=== PATIENT | female | born 1985 ===

== ENCOUNTER 2020-03-15 09:56 | Outpatient (REF) | payer MEDICAID, SELFPAY ==
--- NOTE | 2020-03-15 | US_ITS ---
EXAMINATION: US PELVIS, COMPLETE US TRANSVAGINAL CLINICAL INFORMATION: Pelvic pain. COMPARISON: CT 03/18/2019 TECHNIQUE: Transabdominal and transvaginal imaging was performed. FINDINGS: LMP: One week ago. Uterus is anteverted, measuring 10.8 x 4.4 x 6.1 cm. No focal uterine lesion. There is trace fluid in the endometrial canal in the region of the cervix. Endometrial thickness 0.6 cm. Right ovary measures 3.3 x 1.6 x 1.8 cm. Volume 5 mL. Left ovary measures 2.9 x 2.4 x 1.9 cm. Volume 6.9 mL. Bilateral ovaries appear unremarkable. No free fluid in the cul-de-sac. US/US transvaginal IMPRESSION: Unremarkable pelvic ultrasound.
--- NOTE | 2020-03-15 | US_ITS ---
EXAMINATION: US ABDOMEN COMPLETE CLINICAL INFORMATION: Abdominal pain. COMPARISON: CT 03/18/2019 TECHNIQUE: Real-time imaging of the abdominal viscera. FINDINGS: PANCREAS: The visualized head and body of the pancreas appears unremarkable. Remainder of the pancreas is obscured by bowel gas. ABDOMINAL AORTA: The proximal, mid, and distal segments are normal in caliber. INFERIOR VENA CAVA: Visualized portions are normal. LIVER: Diffuse increased echogenicity. No focal hepatic lesion. There is no intrahepatic biliary duct dilatation seen. GALLBLADDER: Normal. The gallbladder is physiologically distended without evidence of stones, sludge, polyps, wall thickening or pericholecystic fluid. COMMON BILE DUCT: Normal in caliber measuring 0.4 cm in diameter. RIGHT KIDNEY: 2.1 cm midpole cyst. No hydronephrosis. No renal calculi . The kidney measures 12.7 cm in maximum dimension. LEFT KIDNEY: Normal. No hydronephrosis. No renal calculi or focal parenchymal lesions. The kidney measures 12 cm in maximum dimension. SPLEEN: Normal. The spleen measures 11.2 cm in maximum dimension. FREE FLUID: None. Limited evaluation secondary to body habitus. US/US abdomen complete IMPRESSION: 1. There is generalized increase in hepatic echotexture, consistent with fatty infiltration or hepatocellular disease. Please correlate clinically. No focal hepatic mass or intrahepatic biliary duct dilatation is seen. 2. Right renal 2.1 cm cyst.
--- NOTE | 2020-03-15 | US_ITS ---
EXAMINATION: US PELVIS, COMPLETE US TRANSVAGINAL CLINICAL INFORMATION: Pelvic pain. COMPARISON: CT 03/18/2019 TECHNIQUE: Transabdominal and transvaginal imaging was performed. FINDINGS: LMP: One week ago. Uterus is anteverted, measuring 10.8 x 4.4 x 6.1 cm. No focal uterine lesion. There is trace fluid in the endometrial canal in the region of the cervix. Endometrial thickness 0.6 cm. Right ovary measures 3.3 x 1.6 x 1.8 cm. Volume 5 mL. Left ovary measures 2.9 x 2.4 x 1.9 cm. Volume 6.9 mL. Bilateral ovaries appear unremarkable. No free fluid in the cul-de-sac. US/US pelvic complete IMPRESSION: Unremarkable pelvic ultrasound.
== END 2020-03-15 09:57 | disposition home or self-care (01) ==
LOC: HO.US 09:56
PROVIDERS: Visit Provider Registered Nurse
DX: R10.2 Pelvic and perineal pain (principal); Z76.89 Persons encountering health services in other specified circumstances
CPT/HCPCS: 76700; 76830; 76856

== ENCOUNTER → 2020-04-28 11:03 | Outpatient (BNVA) | payer MEDICAID, SELFPAY | PROVIDERS: PCP Emergency Medicine; Visit Provider Nurse Practitioner | DX: Z76.89 Persons encountering health services in other specified circumstances (principal) ==

== ENCOUNTER → 2020-06-28 09:12 | Outpatient (BNVA) | payer MEDICAID, SELFPAY | PROVIDERS: Visit Provider Nurse Practitioner ==

== ENCOUNTER 2020-06-29 09:10 | Outpatient (REF) | payer MEDICAID, SELFPAY ==
[2020-06-29 09:52] LABS: MANUAL DIFF FLAG NO
[2020-06-29 09:56] LABS: Basophils Percent Auto 0.4 % (0-2); Eosinophils Absolute Auto 0.2 X10*3/uL (0.0-0.4); Eosinophils Percent Auto 2.2 % (0-4); Hematocrit 41.9 % (37-47); Hemoglobin 13.2 g/dl (12.0-16.0); Imm Gran Abs Auto 0.03 X10*3/uL (0.00-0.03); Imm Gran Pct Auto 0.3 % (0.0-0.4); Lymphocytes Absolute Auto 3.3 X10*3/uL (1.2-4.9); Lymphocytes Percent Auto 31.7 % (20-40); Mean Corpuscular HGB Conc 31.5 g/dl (31.0-35.0); Mean Corpuscular Hemoglobin 24.3 pg (27.0-33.0); Mean Platelet Volume 8.9 fL (9.4-12.3); Monocytes Absolute Auto 0.7 X10*3/uL (0.1-1.2); Monocytes Percent Auto 6.9 % (2-11); Neutrophils Absolute Auto 6.2 X10*3/uL (2.0-8.3); Neutrophils Percent Auto 58.5 % (45-73); Platelet Count 318 X10*3/uL (160-400); Red Blood Count 5.44 X10*6/uL (4.20-5.50); Red Cell Distribution Width 14.7 % (11.0-16.0); White Blood Count 10.5 X10*3/uL (4.8-10.8)
[2020-06-29 10:17] LABS: Alanine Aminotransferase 30 U/L (0-31); Albumin Level 4.1 g/dL (3.5-5.0); Alkaline Phosphatase 114 U/L (39-117); Anion Gap 14 (12-20); Aspartate Amino Transferase 21 U/L (5-31); Bilirubin Total 0.3 mg/dL (0.0-1.0); Blood Urea Nitrogen 15 mg/dL (9-16); Calcium 8.9 mg/dL (8.4-10.2); Carbon Dioxide 25 mmol/L (22-29); Chloride 106 mmol/L (96-108); Estimated Glomerular Filt Rate > 60; Glucose Random 121 mg/dL (60-115); Potassium 3.9 mmol/L (3.3-5.1); Sodium 141 mmol/L (135-145); Total Protein 7.7 g/dL (6.5-8.0)
== END 2020-06-29 09:11 | disposition home or self-care (01) ==
LOC: HO.LAB 09:10
PROVIDERS: Visit Provider Nurse Practitioner
DX: R19.7 Diarrhea, unspecified (principal); R10.9 Unspecified abdominal pain
CPT/HCPCS: 36415; 80053; 85025; 86140

== ENCOUNTER → 2020-08-13 11:52 | Outpatient (BNVA) | payer MEDICAID, SELFPAY | PROVIDERS: Visit Provider Nurse Practitioner ==

== ENCOUNTER → 2020-10-21 08:49 | Outpatient (BNVA) | payer MEDICAID, SELFPAY | PROVIDERS: Visit Provider Nurse Practitioner ==

== ENCOUNTER → 2020-11-26 10:24 | Outpatient (BNVA) | payer MEDICAID, SELFPAY | PROVIDERS: Visit Provider Nurse Practitioner ==

== ENCOUNTER → 2021-01-07 15:12 | Outpatient (BNVA) | payer MEDICAID, SELFPAY | PROVIDERS: Visit Provider Nurse Practitioner ==

== ENCOUNTER → 2021-01-24 15:20 | Outpatient (BNVA) | payer MEDICAID, SELFPAY | PROVIDERS: PCP Emergency Medicine; Visit Provider Nurse Practitioner ==

== ENCOUNTER → 2021-02-15 09:20 | Outpatient (BNVA) | payer MEDICAID, SELFPAY | PROVIDERS: PCP Emergency Medicine; Visit Provider Nurse Practitioner ==

== ENCOUNTER → 2021-03-01 14:04 | Outpatient (BNVA) | payer MEDICAID, SELFPAY | PROVIDERS: PCP Emergency Medicine; Referring Provider Emergency Medicine; Visit Provider Nurse Practitioner ==

== ENCOUNTER 2021-05-18 10:12 | Outpatient (REF) | payer MEDICAID, SELFPAY ==
--- NOTE | ~2021-05-18 | XR_ITS ---
EXAMINATION: X-RAY OF THE LEFT ANKLE AND LEFT TIBIA FIBULA CLINICAL INFORMATION: Benign neoplasm of connective and other soft tissue. COMPARISON: MRI of the left ankle December 2020. TECHNIQUE: 3 views of the left ankle. 2 views of the left tibia-fibula. FINDINGS: There is a focal area of mixed sclerosis and slight lucency eccentrically located within the diametaphysis of the distal tibia along its posterior lateral aspect. This abuts the endosteal cortex. There is slight expansion of the bone. The borders of the lesion are not clearly defined. There is no periosteal reaction. There is no apparent soft tissue mass. There is no fracture or extension through the cortex. This area measures 4.5 cm craniocaudal, 1.9 cm transverse and 1.8 cm AP. This focus is partially included in the [id number] of the prior ankle MRI. The remaining bones, joints and soft tissues in the left ankle and tibia-fibula are normal. XR/XR ankle LT min 3V IMPRESSION: Intraosseous lesion in the distal tibia in the diametaphysis correlates with the focus detected on the prior MRI. This lesion does not appear to be aggressive given its appearance and apparent remodeling of the bone given its mild expansion. This is most likely benign. This could reflect a fibroxanthoma. This could also reflect fibrous dysplasia. Malignancy is thought to be unlikely. Correlate with clinical presentation to determine whether or not any intervention is necessary at this time. This could be further characterize with CT or MRI if felt clinically necessary. Alternatively, routine follow-up, perhaps in 6-12 months, is recommended to ensure stability of this suspected benign lesion if this is not been detected previously.
--- NOTE | ~2021-05-18 | XR_ITS ---
EXAMINATION: X-RAY OF THE LEFT ANKLE AND LEFT TIBIA FIBULA CLINICAL INFORMATION: Benign neoplasm of connective and other soft tissue. COMPARISON: MRI of the left ankle December 2020. TECHNIQUE: 3 views of the left ankle. 2 views of the left tibia-fibula. FINDINGS: There is a focal area of mixed sclerosis and slight lucency eccentrically located within the diametaphysis of the distal tibia along its posterior lateral aspect. This abuts the endosteal cortex. There is slight expansion of the bone. The borders of the lesion are not clearly defined. There is no periosteal reaction. There is no apparent soft tissue mass. There is no fracture or extension through the cortex. This area measures 4.5 cm craniocaudal, 1.9 cm transverse and 1.8 cm AP. This focus is partially included in the [id number] of the prior ankle MRI. The remaining bones, joints and soft tissues in the left ankle and tibia-fibula are normal. XR/XR tibia fibula LT 2V IMPRESSION: Intraosseous lesion in the distal tibia in the diametaphysis correlates with the focus detected on the prior MRI. This lesion does not appear to be aggressive given its appearance and apparent remodeling of the bone given its mild expansion. This is most likely benign. This could reflect a fibroxanthoma. This could also reflect fibrous dysplasia. Malignancy is thought to be unlikely. Correlate with clinical presentation to determine whether or not any intervention is necessary at this time. This could be further characterize with CT or MRI if felt clinically necessary. Alternatively, routine follow-up, perhaps in 6-12 months, is recommended to ensure stability of this suspected benign lesion if this is not been detected previously.
== END 2021-05-18 10:13 | disposition home or self-care (01) ==
LOC: HO.XRAY 10:12
PROVIDERS: Absent Provider Nurse Practitioner Primary Care; PCP Nurse Practitioner Primary Care; Referring Provider Nurse Practitioner Primary Care; Visit Provider Surgery
DX: D21.9 Benign neoplasm of connective and other soft tissue, unspecified (principal); L02.91 Cutaneous abscess, unspecified
CPT/HCPCS: 73590; 73610; 99202

== ENCOUNTER → 2021-06-08 09:40 | Outpatient (BNVA) | payer MEDICAID, SELFPAY | PROVIDERS: PCP Nurse Practitioner Primary Care; Visit Provider Physician Assistant | DX: S93.402A Sprain of unspecified ligament of left ankle, initial encounter (principal) | CPT/HCPCS: 99202 ==

== ENCOUNTER 2021-06-24 11:00 | Outpatient (RCR) | payer MEDICAID, SELFPAY | END 2021-07-12 14:35 | disposition home or self-care (01) | LOC: HO.PT 11:00 | PROVIDERS: PCP Nurse Practitioner Primary Care; Visit Provider Nurse Practitioner Primary Care | DX: S93.492D Sprain of other ligament of left ankle, subsequent encounter (principal) | CPT/HCPCS: 97110; 97162; 97530 ==

== ENCOUNTER 2023-03-07 08:50 | Outpatient (AMB) | payer MEDICAID, SELFPAY ==
--- NOTE | 2023-03-07 08:55 | A.OFFVIS_ITS ---
Intake Vital Signs 03/07/23 09:12 Height 5 ft 4 in Weight 280 lb BMI 48.1 Intake Visit Reasons: NewProb- Right wrist pain Intake Note: Reema melo 38 year old female presents today for an evaluation of right wrist pain. Patient reports pain has been present for about a month. She describes her pain as a burning sensation that radiates into her 2nd and 3rd digits. States weakness with gripping, making it difficult to open jars. At times she has radiating pain to her forearm. Denies recent injury. Patient has been wearing a brace with little help. Allergies naproxen [NAPROXEN] Allergy (Unknown, Verified 03/07/23 09:12) TACHYCARDIA Medication List - Last Reconciled 03/07/23 by Sin Alvarez PA-C acyclovir 400 mg PO DAILY albuterol sulfate 90 mcg/actuation (ProAir HFA) 1 inh inhalation QID alosetron (Lotronex) 1 mg PO BID 30 days artifi.tears(hypromellose)(PF) 0.3% 1 drp ophthalmic (eye) Q2-4H PRN butenafine 1% (Lotrimin Ultra) 1 appl topical BID cetirizine (All Day Allergy (cetirizine)) 10 mg PO DAILY PRN cholecalciferol (vitamin D3) 1,250 mcg PO QWEEK cyclobenzaprine 5 mg PO TID PRN dicyclomine 20 mg PO QID 30 days famotidine 40 mg PO BEDTIME fluticasone propionate 50 mcg/actuation 1 spray intranasal DAILY lamotrigine (Lamictal) 25 mg PO DAILY levothyroxine 25 mcg PO QAM meloxicam 15 mg PO DAILY metformin 500 mg PO nystatin 1 appl topical BID omeprazole 20 mg PO DAILY 30 days prazosin 5 mg PO BEDTIME HPI NewProb- Right wrist pain HPI Details 38-year-old right hand dominant female bert carballo presents to the office today with an lever tender for evaluation of right wrist pain for about a month. She states she has pain and burning sensation in her wrist which radiates to her 2nd and 3rd digit and occasionally to her forearm. She also experiences pain and weakness with gripping or pushing motions and finds difficulty with opening jars. She denies any numbness or tingling and has not had any recent injury. She finds mild relief with a brace. [facility] Medical History (Updated 03/07/23 @ 10:41 by Sin Alvarez PA-C) Left ankle sprain Abscess Morbid obesity Family History Maternal Grandmother Diabetes Social History Household Members: Children Alcohol intake: never Current occupational status: unemployed Review of Systems Const All systems reviewed & are unremarkable except as noted in HPI and below Physical Exam Vital Signs: BMI result Body Mass Index 48.1 Extrem Other: Right wrist: Normal to inspection. She has no pain over distal radius or ulna. She does have tenderness over the scaffold lunate region. No pain with compression test of wrist. No DRUJ instability. NVI. Results Reviewed Results Reviewed: X-rays of the bilateral lungs obtained in the office today show Madelung deformity. Assessment & Plan Assessment & Plan (1) Bilateral Madelung's deformity: Code(s): Q74.0 - Other congenital malformations of upper limb(s), including shoulder girdle Plan X-ray findings of the left wrist are consistent with Madelung deformity. I did explain this to the patient along with treatment options which is mainly symptomatic with rest and anti-inflammatories, also avoiding any type of impact activities which cause discomfort. She does have a wrist brace which she can wear with impact activities. I did explain that as time goes on if she develops worsening pain or there is severe joint collapse, she can return to see us and I would have her see with Dr. Springer to discuss further treatment options. She is content with this plan. Orders: Orders XR wrist RT min 3V Today M25.531 - Pain in right wrist Patient Instructions: Scribed for Sin Alvarez PA-C, by Yousif Dailey medical genetics director, on 03/07/2023 at 9:00 AM EST. Chow, Sin Alvarez PA-C, have personally reviewed and agree with the information entered by the scribe. Coding Level of Care Code Est Pt Level 3 (51304) Diagnoses Bilateral Madelung's deformity Q74.0
[2023-03-07 09:12] VITALS: BMI 48.1
== END 2023-03-07 10:25 | disposition home or self-care (01) ==
PROVIDERS: PCP Nurse Practitioner Primary Care; Visit Provider Physician Assistant
DX: Q74.0 Other congenital malformations of upper limb(s), including shoulder girdle (principal)
CPT/HCPCS: 99213

== ENCOUNTER 2023-03-07 09:24 | Outpatient (REF) | payer MEDICAID, SELFPAY ==
--- NOTE | ~2023-03-07 | XR_ITS ---
EXAMINATION: XR WRIST, LEFT CLINICAL INFORMATION: Pain left wrist COMPARISON: Right wrist radiograph from 03/07/2023 TECHNIQUE: 2 views of the bilateral scaphoid 3 views of the left wrist FINDINGS: No acute visible fracture or dislocation. Joint spaces and alignment are maintained. Soft tissues are unremarkable. XR/XR wrist LT w scaphoid IMPRESSION: No acute visible fracture or dislocation.
--- NOTE | ~2023-03-07 | XR_ITS ---
EXAMINATION: XR WRIST, RIGHT CLINICAL INFORMATION: Pain COMPARISON: None available. TECHNIQUE: PA, lateral, and oblique views of the right wrist. FINDINGS: No acute visible fracture or dislocation. Very slight positive ulnar variance. Joint spaces and alignment are otherwise maintained. Soft tissues are unremarkable. XR/XR wrist RT min 3V IMPRESSION: 1. No acute visible fracture or dislocation. 2. Very slight positive ulnar variance.
== END 2023-03-07 09:25 | disposition home or self-care (01) ==
LOC: HO.HOSX 09:24
PROVIDERS: Visit Provider Physician Assistant
DX: M25.531 Pain in right wrist (principal); Q74.0 Other congenital malformations of upper limb(s), including shoulder girdle; Z79.899 Other long term (current) drug therapy
CPT/HCPCS: 73110; 99212

== ENCOUNTER 2023-03-28 09:40 | Outpatient (REF) | payer MEDICAID, SELFPAY ==
[2023-03-28 12:10] LABS: Cholesterol 145 mg/dL (<200); HDL Cholesterol 32 mg/dL (>40); LDL Cholesterol Calculated 71 mg/dL (<100); Triglycerides 214 mg/dL (<150)
[2023-03-28 12:18] LABS: Estimated Average Glucose 120 mg/dL; Hemoglobin A1c % 5.8 % (<6.0)
[2023-03-28 12:29] LABS: TSH reflex Free T4 3.83 uIU/mL (0.32-4.0)
== END 2023-03-28 09:41 | disposition home or self-care (01) ==
LOC: HO.HHCL 09:40
PROVIDERS: Visit Provider Nurse Practitioner Primary Care
DX: E78.1 Pure hyperglyceridemia (principal); R73.03 Prediabetes; E03.9 Hypothyroidism, unspecified
CPT/HCPCS: 36415; 80061; 83036; 84443

== ENCOUNTER 2023-09-04 16:41 | Outpatient (REF) | payer MEDICAID, SELFPAY ==
[2023-09-05 05:20] LABS: CT PCR NOT DETECTED (Not Detect.); NG PCR NOT DETECTED (Not Detect.)
[2023-09-05 10:57] LABS: Bacterial Vaginosis PCR NEGATIVE (Negative); Candida Group PCR DETECTED (Not Detect); Candida glab krusei PCR DETECTED (Not Detect); Trichomonas vaginalis PCR NOT DETECTED (Not Detect)
== END 2023-09-04 16:42 | disposition home or self-care (01) ==
LOC: HO.HHCLNP 16:41
PROVIDERS: Visit Provider Family Medicine
DX: N89.8 Other specified noninflammatory disorders of vagina (principal)
CPT/HCPCS: 0352U; 0353U; 87086

== ENCOUNTER 2023-09-05 12:30 | Outpatient (AMB) | payer MEDICAID, SELFPAY ==
--- NOTE | 2023-09-05 12:32 | MHC.OFFVIS ---
Vital Signs 09/05/23 12:41 Height 5 ft 4 in Weight 280 lb BMI 48.1 Intake Visit Reasons: worsening hand pain Intake Note: Reema 38 yr old finnish speaking female presents today for her follow up visit for Bilateral Madelung's deformity. Last seen with Ervin Soriano who wanted patient to have further evaluation with Dr. Springer. She describes her pain as a burning sensation that radiates into her 2nd and 3rd digits. States weakness with gripping, making it difficult to open jars. At times she has radiating pain to her forearm. Denies recent injury. Patient has been wearing a brace with little help. Allergies naproxen [NAPROXEN] Allergy (Unknown, Verified 09/05/23 12:41) TACHYCARDIA HPI HPI worsening hand pain: Details: Reema is a 38 year old right hand dominant Bhutanese speaking woman who presents to discuss her right hand pain. She saw BOLIVAR Soriano on 03/07/23 and was told she had Madelung deformity. She complains of right radial sided wrist pain primarily. Her pain is worse with pinching & gripping activities, and she says this limits her when working around her house. She complains of numbness in the thumb & index fingers bilaterally, R>L. Normal sensation to other digits. Symptoms intermittent, but daily, worse at night. She also complains of pain that radiates from the radial aspect of her right hand/wrist, up into her shoulder & neck. [facility] Medical History (Updated 09/05/23 @ 13:28 by Chris Salazar) Left ankle sprain Abscess Morbid obesity Family History Maternal Grandmother Diabetes Social History (Reviewed 03/07/23 @ 09:12 by Shania Evangelista [facility]) Household Members: Children Alcohol intake: never Current occupational status: unemployed Review of Systems Const All systems reviewed & are unremarkable except as noted in HPI and below Physical Exam Vital Signs: BMI result Body Mass Index 48.1 Const General: cooperative, healthy appearing and no acute distress Orientation/consciousness: patient oriented x3 HEENT Head: Yes normocephalic and Yes atraumatic Eyes EOM: EOMs intact bilaterally Resp Effort & Inspection: normal respiratory effort and able to speak in complete sentences Cardio Jugular venous distension: no JVD Skin General skin exam: turgor normal Rashes: no rashes Neuro General: patient oriented x3 Extrem Other: Evaluation of Right Upper Extremity: The patient is alert, oriented, and in no acute distress Neuro: Numbness in the right thumb & index finger today in clinic. Normal sensation to to the middle, ring, and small fingers of the right hand. Normal sensation to all digits of the left hand No thenar or intrinsic wasting Good APB muscle belly firing and good finger cross Vascular: Cap refill brisk ROM: She can make a fist and extend all her digits No locking or catching Skin: No lacerations or abrasions. General: No Ecchymosis. No Erythema or evidence of infection. Positive Jordin test on the right Mildly positive Jordin test on the left Tender over the right 1st dorsal compartment No tenderness over the Basal joint Radiographs: 3 views of the left wrist, plus a pencil occupational health and safety officer view, from 03/07/23 were reviewed by me today in clinic. They show no fractures or dislocations. There is no widening of the scapholunate interval on the pencil occupational health and safety officer view, and there is perhaps some increased radial inclination. I do not see evidence of Madelung deformity Psych Appearance: grossly normal Affect: normal affect Attitude: cooperative Office Procedures Fracture Care Details: No fracture, injection Fracture Billing Code: Fracture Billing Code Assessment & Plan Assessment & Plan (1) De Quervain's tenosynovitis, right: Code(s): M65.4 - Radial styloid tenosynovitis [de Quervain] Category: Medical (2) De Quervain's tenosynovitis, left: Code(s): M65.4 - Radial styloid tenosynovitis [de Quervain] Category: Medical (3) Bilateral hand numbness: Code(s): R20.0 - Anesthesia of skin Category: Medical Plan Assessment & Plan: 1. Right De Quervains Tenosynovitis This is her primary complaint today Positive Jordin test 2. Left De Quervains Tenosynovitis Mildly positive Jordin test I educated her about this condition I discussed operative and non-operative treatment options The patient would like to proceed with an injection for her right side I discussed activity modification, they should limit or avoid any heavy or repetitive pinching or gripping activities She was fitted for a comfort cool brace to wear with daily activity Injection #1: The risks and benefits of a steroid injection including but not limited to risk of damage to blood vessels, nerves, tendons, infection, skin bleaching, failure to improve symptoms, increased pain, and possible need for further injections or other intervention were discussed with the patient and the patient wishes to proceed with the steroid injection. Once consent was obtained, I sterilely prepped the area over the 1st dorsal compartment of the Right thumb. I then injected the 1st dorsal compartment with a combination of 1 mL of dexamethasone (4mg/ml), and 1% lidocaine. The patient tolerated the procedure well with no complications and good resolution of their symptoms prior to leaving clinic. If the patient continues to have pain 6-8 weeks following this injection, they may call to schedule appointment to discuss alternative treatment options 3. Bilateral hand numbness In the thumb & index fingers bilaterally, R>L Normal sensation to the middle, ring, and small fingers I ordered a NCS to assess for peripheral nerve compression She will follow up when completed for review Please note that greater than 30 minutes was spent with this patient going over the history, evaluating the patient and radiographs, formulating possible treatment options, discussing them with the patient, and documenting the visit. Scribed for Naida Springer MD by Chris Salazar, medical affairs specialist, on 09/05/23 at 1:20 PM, EST. Orders: Orders NE nerve conduction velocity Today R20.0 - Anesthesia of skin, R20.2 - Paresthesia of skin Coding Level of Care Code Est Pt Level 4 (08068) Diagnoses De Quervain's tenosynovitis, right M65.4 De Quervain's tenosynovitis, left M65.4 Bilateral hand numbness R20.0 CPT Codes Fracture Care - Fracture Billing Code: Fracture Billing Code ([id number])
[2023-09-05 12:41] VITALS: BMI 48.1
== END 2023-09-05 16:07 | disposition home or self-care (01) ==
PROVIDERS: PCP Nurse Practitioner Primary Care; Visit Provider Orthopaedic Surgery
DX: M65.4 Radial styloid tenosynovitis [de Quervain] (principal); R20.0 Anesthesia of skin
CPT/HCPCS: 20550; 99214

== ENCOUNTER → 2023-09-05 12:30 | Outpatient (BNVA) | payer MEDICAID, SELFPAY | PROVIDERS: PCP Nurse Practitioner Primary Care; Visit Provider Orthopaedic Surgery | DX: M65.4 Radial styloid tenosynovitis [de Quervain] (principal); R20.0 Anesthesia of skin | CPT/HCPCS: 20550; 99212; J1100 ==

== ENCOUNTER 2023-09-18 09:45 | Outpatient (REF) | payer MEDICAID, SELFPAY ==
--- NOTE | 2023-09-18 09:48 | EMG_ITS ---
Bilateral median and ulnar motor and sensory studies were obtained. Bilateral radial sensory study was obtained and paraspinal muscles were tested with a needle. IMPRESSION: Other than mild right median neuropathy across carpal tunnel, no significant abnormality noted. MD TIFFANIE Graf/KENNETH / [id number]
== END 2023-09-18 09:46 | disposition home or self-care (01) ==
LOC: HO.NEURO 09:45
PROVIDERS: PCP Nurse Practitioner Primary Care; Visit Provider Orthopaedic Surgery
DX: R20.0 Anesthesia of skin (principal); R20.2 Paresthesia of skin
CPT/HCPCS: 95886; 95911

== ENCOUNTER 2023-11-07 10:53 | Outpatient (AMB) | payer MEDICAID, SELFPAY ==
--- NOTE | 2023-11-07 11:03 | MHC.OFFVIS ---
Vital Signs 11/07/23 11:22 Height 5 ft 4 in Weight 280 lb BMI 48.1 Intake Visit Reasons: OV-B/L hand numbness and tingling-EMG Review Intake Note: Reema is a 38 yo right hand dominant female who presents today for evaluation of EMG results. Patient complains of worsening bilateral hand pain and numbness. Machine Clothing Man Required: Yes Machine Clothing Man Language: Culture Room Worker Services: Machine Clothing Man Present Machine Clothing Man Name: GARRISON Wan/AI Allergies naproxen [NAPROXEN] Allergy (Unknown, Verified 11/07/23 11:21) TACHYCARDIA HPI HPI OV-B/L hand numbness and tingling-EMG Review: Details: Reema is a 38 year old right hand dominant Croatian speaking woman who returns for a NCS review She was last seen and received a right De Quervain's injection on 09/05/23, with no relief. She continues to complain of numbness in the thumb & index fingers bilaterally, R>L. Normal sensation to other digits. Symptoms intermittent, but daily, worse at night. She also complains of bilateral radial-sided wrist pain, which she feels is worsening. Her pain is worse with pinching & gripping activities, and she says this limits her when working around her house. She also complains of pain were generally over the dorsum of the right hand extending over the dorsal aspect of the wrist, and pointed to a hard area at the base of the dorsal aspect of the 2nd 3rd metacarpals. She also complains of pain that radiates from the radial aspect of her right hand/wrist, up into her shoulder & neck. [facility] Medical History (Updated 11/07/23 @ 11:22 by Chris Salazar) Left ankle sprain Abscess Morbid obesity Family History Maternal Grandmother Diabetes Social History (Updated 11/07/23 @ 11:21 by GARRISON García) Household Members: Children Alcohol intake: never Current occupational status: unemployed Current occupation: rt handed Physical Exam Vital Signs: BMI result Body Mass Index 48.1 Extrem Other: Evaluation of Right Upper Extremity: The patient is alert, oriented, and in no acute distress Neuro: Normal sensation today tot he tips of all digits bilaterally. No thenar or intrinsic wasting Good APB muscle belly firing and good finger cross Vascular: Cap refill brisk ROM: She can make a fist and extend all her digits No locking or catching Positive Jordin test on the right Mildly positive Jordin test on the left Tender over the right 1st dorsal compartment Mild tenderness over the base of the somewhat prominent base of the 2nd/ 3rd metacarpal, possibly metacarpal boss No tenderness over the Basal joint Nerve Conduction Study: IMPRESSION: Other than mild right median neuropathy across carpal tunnel, no significant abnormality noted. Shyam Salazar MD Radiographs: 3 views of the left wrist, plus a pencil cow puncher view, from 03/07/23 were reviewed by me today in clinic. They show no fractures or dislocations. There is no widening of the scapholunate interval on the pencil cow puncher view. I do not see evidence of Madelung deformity Assessment & Plan Assessment & Plan (1) De Quervain's tenosynovitis, right: Code(s): M65.4 - Radial styloid tenosynovitis [de Quervain] Category: Medical (2) De Quervain's tenosynovitis, left: Code(s): M65.4 - Radial styloid tenosynovitis [de Quervain] Category: Medical (3) Carpal tunnel syndrome of right wrist: Code(s): G56.01 - Carpal tunnel syndrome, right upper limb Category: Medical Plan Assessment & Plan: 1. Right De Quervains Tenosynovitis, S/P injection Date of injection: 09/05/23 Positive Jordin test This is her primary complaint today I educated her about this condition I discussed operative and non-operative treatment options The patient would like to proceed with surgery I discussed activity modification, they should limit or avoid any heavy or repetitive pinching or gripping activities She will continue to wear her comfort cool brace with daily activity 2. Right carpal tunnel syndrome, mild Symptoms intermittent, but daily, worse at night The risks and benefits of operative treatment were discussed with the patient and the patient wishes to proceed with surgery. These risks include, but are not limited to risk of damage to blood vessels, nerves, tendons, infection, recurrence, incomplete relief of preoperative symptoms, persistent pain, possible need for further surgery and the risks associated with regional blocks and anesthesia. The plan is to take the patient to the operating room sometime in the next few weeks for the following procedures: 1. Right 1st dorsal compartment release, under local 2. Right carpal tunnel release, under local All of the preoperative paperwork including the consent was reviewed today. All the patient's questions were answered. The patient understands that they will be contacted by our neurosurgery research director soon to schedule this procedure She denies Diabetes, blood thinners, asthma, heart, lung, kidney issues 3. Left De Quervains Tenosynovitis Mildly positive Jordin test 4. Left hand numbness In the left thumb & index finger, normal sensation in middle, ring, and small Symptoms intermittent, but daily No evidence of carpal or cubital tunnel syndrome seen on NCS Scribed for Naida Springer MD by Chris Salazar, biomedical engineering technician, on 11/07/23 at 11:25 AM, EST. Coding Level of Care Code Est Pt Level 4 (31177) Diagnoses De Quervain's tenosynovitis, right M65.4 De Quervain's tenosynovitis, left M65.4 Carpal tunnel syndrome of right wrist G56.01
[2023-11-07 11:22] VITALS: BMI 48.1
== END 2023-11-07 11:45 | disposition home or self-care (01) ==
PROVIDERS: PCP Nurse Practitioner Primary Care; Referring Provider Nurse Practitioner Primary Care; Visit Provider Orthopaedic Surgery
DX: M65.4 Radial styloid tenosynovitis [de Quervain] (principal); G56.01 Carpal tunnel syndrome, right upper limb
CPT/HCPCS: 99214

== ENCOUNTER → 2023-11-07 10:53 | Outpatient (BNVA) | payer MEDICAID, SELFPAY | PROVIDERS: PCP Nurse Practitioner Primary Care; Visit Provider Orthopaedic Surgery | DX: Z01.818 Encounter for other preprocedural examination (principal); M65.4 Radial styloid tenosynovitis [de Quervain]; G56.01 Carpal tunnel syndrome, right upper limb | CPT/HCPCS: 99212 ==

== ENCOUNTER 2024-01-07 12:09 | Day surgery (SDC) | payer MEDICAID, SELFPAY ==
[2024-01-07 12:35] VITALS: BP 145/97; PULSE 84; RESP 18; TEMP 37.3; O2SAT 98
[2024-01-07 12:45] VITALS: BMI 49.6
--- NOTE | 2024-01-07 14:40 | P.OP_ITS ---
Operative Note Operative Note Date of Service: 01/07/24 Narrative: Operative Note Preop diagnosis: 1. Right DeQuervain's tenosynovitis 2. Right carpal tunnel syndrome Postop diagnosis: Same Procedure: 1. Right 1st dorsal compartment release 2. Right carpal tunnel release Surgeon: Naida Springer MD School Bus Inspector: None Anesthesia: local block using 1% lidocaine with epinephrine Findings: Thickened 1st dorsal compartment. EBL: Less than 5 mL Tourniquet time: None Specimens: None Complications: None Disposition: Brought to recovery room in stable condition Plan: Follow-up for 7-10 days for wound check and suture removal Indications: The patient is 38 years old, with right carpal tunnel syndrome and right DeQuervain's tenosynovitis that have been unresponsive to nonoperative management. The risks and benefits of operative treatment includi ng but not limited to risk of damage to blood vessels, nerves, tendons, infection, persistent pain, persistent symptoms, recurrence or possible need for additional surgery were discussed with the patient and the patient wishes to proceed with surgery. Procedure: Once consent was obtained a local block was performed in the preop area using a combination of 1% lidocaine with epinephrine. The patient was then brought back to the operating suite and placed on the operative table in supine position. A tourniquet was applied to the proximal aspect of the right upper extremity and the limb was prepped and draped in a standard surgical fashion. Once assured that we had a good block, a 2.0 cm longitudinal incision was made centered over the right carpal tunnel. The incision was made through the skin to the subcutaneous tissues using a #15 blade. Dissection was made down to the level of the transverse carpal ligament with care being taken to protect the palmar cutaneous nerve. Once the transverse carpal ligament was clearly visualized, a longitudinal incision was made in the transverse carpal ligament 1st using a #15 blade, then using tenotomy scissors under direct visualization. Care was taken to look for and protect the motor branch of the median nerve when seen in this area. Once satisfied with our carpal tunnel release the wound was irrigated with normal saline. Once assured that we had a good block, a 1.5 cm longitudinal incision was made centered over the 1st dorsal compartment as it passed over the radial styloid of the right wrist. The incision was made through the skin to the subcutaneous tissues using a #15 blade. Careful dissection was made down to the level of the 1st dorsal compartment using tenotomy scissors, with care being taken to protect the nearby branches of the superficial radial nerve. Once the 1st dorsal compartment was exposed, A longitudinal incision was made in the 1st dorsal compartment 1st using a #15 blade, then using tenotomy scissors under direct visualization. The 1st dorsal compartment was noted to be thickened. Following our release, we saw smooth gliding abductor pollicis longus and extensor pollicis brevis tendons. Once satisfied with our 1st dorsal compartment release the wound was copiously irrigated with normal saline and hemostasis was obtained with a brief period of local pressure. The skin edges were re approximated with some 5.0 nylon suture material. A sterile dressing was applied. The patient appears to have tolerated the procedure well and with no complications. All digits were well vascularized at the conclusion of the case.
--- NOTE | 2024-01-07 14:40 | MHC.SHP ---
Pre-Procedural Eval Section A - 24 Hr Update-Section A only Date of Service: 01/07/24 The patient is an INPATIENT: No Changes since office visit: No Cold of Flu in the past 2 weeks, No New Medical Problems, No Changes in Medication and No Patient answered all questions The patient has been examined within 24 hours of the surgical procedure. The History & Physical has been completed within 30 days and I have reviewed it.: Yes Section B - Complete if H&P > 30 days Chief Complaint: Radial styloid tenosynovitis [de Quervain],carpal Allergies: Allergies Allergy/AdvReac Type Severity Reaction Status Date / Time naproxen [NAPROXEN] Allergy Unknown TACHYCARDIA Verified 11/07/23 11:21 Plan Diagnosis/Plan: Unchanged I have reviewed the history and physical and performed a pertinent physical examination on my patient. No changes have occurred unless specified. Time Spent With Patient Time: Total time managing care of this patient today ____ minutes.
[2024-01-07 16:10] VITALS: BP 134/78; PULSE 82; RESP 16; TEMP 36.6; O2SAT 96
== END 2024-01-07 16:16 | disposition home or self-care (01) ==
PROVIDERS: PCP Nurse Practitioner Primary Care; Visit Provider Orthopaedic Surgery
PROC: (CPT 64721; principal; 2024-01-07 15:50)
PROC: (CPT 64721; 2024-01-07 15:50)
DX: G56.01 Carpal tunnel syndrome, right upper limb (principal); M65.4 Radial styloid tenosynovitis [de Quervain]; R20.0 Anesthesia of skin; R20.2 Paresthesia of skin; E66.01 Morbid (severe) obesity due to excess calories; Z68.42 Body mass index [BMI] 45.0-49.9, adult; Z88.6 Allergy status to analgesic agent; Z56.0 Unemployment, unspecified
CPT/HCPCS: 64721; 25000; J0171; J2003

== ENCOUNTER → 2024-01-07 12:09 | Outpatient (BNV) | payer MEDICAID, SELFPAY | PROVIDERS: PCP Nurse Practitioner Primary Care; Visit Provider Orthopaedic Surgery | DX: M65.4 Radial styloid tenosynovitis [de Quervain] (principal); G56.01 Carpal tunnel syndrome, right upper limb | CPT/HCPCS: 25000; 64721 ==

== ENCOUNTER 2024-01-22 10:47 | Outpatient (AMB) | payer MEDICAID, SELFPAY ==
--- NOTE | 2024-01-22 10:56 | MHC.OFFVIS ---
Intake Visit Reasons: PO RT CTR/1st DC release 01/07/24 AR Intake Note: Reema is a 39 year old right hand dominant Chilean speaking female who presents today post operatively s/p Right 1st dorsal compartment release and right carpal tunnel release DOS: 01/07/24 w/ Dr Springer. Pt states she has pain where the incision sites are. Pt states she has a sensation but it isn't numbness or tingling. Medical Assisting Instructor Required: Yes Medical Assisting Instructor Services: Medical Assisting Instructor Present Medical Assisting Instructor Name: Mona ([id number]) Allergies naproxen [NAPROXEN] Allergy (Unknown, Verified 01/22/24 11:25) TACHYCARDIA HPI HPI PO RT CTR/1st DC release 01/07/24 AR: Details: Patient is a 39-year-old female who presents for postoperative evaluation status post right carpal tunnel release and 1st dorsal compartment release, DOS 01/07/[address] Springer. Today, the patient reports that she is experiencing discomfort at both of the incision sites on the right hand, but states that the numbness and tingling in her right hand has completely resolved. The patient states that she has concerns that the surgery may have been a effective due to the fact that she is experiencing was postoperative pain. No other acute complaints or concerns at this time. [facility] Medical History (Updated 11/07/23 @ 11:22 by Chris Salazar) Left ankle sprain Abscess Morbid obesity Surgical History (Updated 01/07/24 @ 12:44 by Chiara Maloney RN) History of section History of cholecystectomy Family History Maternal Grandmother Diabetes Social History (Updated 11/07/23 @ 11:21 by GARRISON García) Household Members: Children Alcohol intake: never Current occupational status: unemployed Current occupation: rt handed Physical Exam Extrem Other: Patient is alert, oriented, and in no acute distress. Neuro: Normal sensation of the tips of all digits of the [] hand at this time Vascular: Cap refill brisk Pain: Patient reports tenderness to palpation both about the incision site on the volar right wrist and that over the 1st dorsal compartment of the right wrist Negative Jordin test No tenderness to palpation of the radial styloid, ulnar styloid, DRUJ, or elsewhere in the right hand or wrist ROM: With encouragement, patient is able to make a closed fist and extend all digits of the right hand fully Skin: Well approximated and well healing incision sites noted on both the volar aspect of the right wrist and over the 1st dorsal compartment of the right wrist No surrounding erythema, active discharge, or other evidence infection General: No ecchymosis, erythema, or evidence of infection. Psych: Appears grossly normal Affect normal Attitude cooperative Assessment & Plan Assessment & Plan (1) Carpal tunnel syndrome of right wrist: Code(s): G56.01 - Carpal tunnel syndrome, right upper limb Category: Medical (2) De Quervain's tenosynovitis, left: Code(s): M65.4 - Radial styloid tenosynovitis [de Quervain] Category: Medical Plan 1. Right carpal syndrome status post carpal tunnel release 2. Right de Quervain tenosynovitis status post 1st dorsal compartment release DOS 01/07/2024 Patient appears to be recovering moderately well postoperatively Patient is educated about the typical recovery course At this time, patient is referred to occupational therapy for range of motion, strengthening, and desensitization of the right hand due to mild postoperative stiffness and hypersensitivity around incision sites, particularly that from the carpal tunnel release Patient is educated that she should continue to avoid lifting anything heavier than 2 lb for a further 2 weeks of the right hand Patient was informed that I feel we should wait until she has achieved better recovery from her 1st surgery to sign up for any surgery on the other side Patient expressed agreement with this Patient will follow-up as needed with any acute concerns Orders: Orders OT Evaluation and Treatment 01/22/24 G56.01 - Carpal tunnel syndrome, right upper limb, M65.4 - Radial styloid tenosynovitis [de Quervain] Coding Level of Care Code Global (97808) Diagnoses Carpal tunnel syndrome of right wrist G56.01 De Quervain's tenosynovitis, left M65.4
== END 2024-01-22 11:59 | disposition home or self-care (01) ==
PROVIDERS: PCP Nurse Practitioner Primary Care
DX: G56.01 Carpal tunnel syndrome, right upper limb (principal); M65.4 Radial styloid tenosynovitis [de Quervain]
CPT/HCPCS: 99024

== ENCOUNTER → 2024-01-22 10:47 | Outpatient (BNVA) | payer MEDICAID, SELFPAY | PROVIDERS: PCP Nurse Practitioner Primary Care | DX: Z48.811 Encounter for surgical aftercare following surgery on the nervous system (principal); Z98.890 Other specified postprocedural states | CPT/HCPCS: 99212 ==

== ENCOUNTER 2024-02-26 08:52 | Outpatient (RCR) | payer MEDICAID, SELFPAY ==
--- NOTE | 2024-01-30 13:08 | MHC.OT.EP ---
[address] [phone] Occupational Therapy Plan of Care Patient Name: Reema Jimenez Date of Evaluation: 01/30/24 Diagnosis: S/P (R) CTR, (R) dequervain?s release Pain Location: Pain around the base of (R) thenar eminence and wrist, radial aspect of forearm unable to describe type of pain. Pain Score: 9 Pain Scale Used: Numeric (0 - 10) Aggravating Factors: Any use of the hand worsens the pain Alleviating Factors: Compression wrap helps w/pain slightly pain medication Assessment: 39 y/o F s/p (R) CTR and Dequiervains release three weeks post op, presents with decreased ROM, decreased strength, edema, pain, sensitivity and scar formation. Pt is experiencing significant pain with use of her (R) hand limiting her participation in ADL/IADL tasks. Pt has her children assist her around the home when needed in order to complete house hold and ADL tasks. Pt would benefit from skilled OT services to work on improving ROM, self-management pain reduction strategies, and increase overall strength in order to return to PLOF and engaging in social / leisure activities. Today MHP was initiated and AROM exercises of the wrist. Pt reported increase of pain during AROM but was unable to describe the type of pain she was feeling. Pt was educated on the importance of AROM and given a visual HEP in Serbian to follow at home. Pt was also educated on the benefits and how to ice cup at home to manage pain, edema, and scar desensitization. Frequency and Duration: The patient will be seen 2x a week for 6 weeks Short Term Goals: Pt will be IND and compliant w/HEP Pt will be IND and compliant w self /scar management strategies Pt will be IND w/ edema management techniques Pt will report 6/10 pain with activities Retirement Goals: Pt will achieve 30* of wrist extension to improve ADL participation Pt will be IND w/ ADL board to demonstrate IND w/ dressing ADL's within the home Pt will report 2/10 pain with light IADL tasks within the home Pt will achieve a yard rigger strength of at lest 20 pounds to prepare her for IADL tasks in the home. Treatment Plan: Therapeutic Exercise Therapeutic Activity Home Exercise Program Splinting Neuro Re-ed Patient Education Desensitization/Sensory Re-ed Edema Control ADL Training Ultrasound NMES Iontophoresis Paraffin Fluidotherapy MHP Cold Packs Joint Mobilization Soft Tissue Mobilization Kinesiotaping Other (see comments) Electronically Signed By: Eloina Mayorga OT/s, Marylu Dennis, OTR/L Please Sign and return to therapist. Thank you once again for your referral.
--- NOTE | 2024-03-14 15:25 | MHC.OT.DC ---
[address] [phone] F: [phone] Occupational Therapy Discharge Note Patient Name: Reema Jimenez Provider: Kamran Mane Diagnosis: (R) CTR, (R) dequervain?s release 01/07/24 Date of Surgery: 01/07/24 Date of Evaluation: 01/30/24 Date of Discharge: 03/14/24 Treatments to Date: 6 Discharge Status: Visit Non-compliance Discharge Summary: Patient has demonstrated non compliance with visit schedule. Patient last attended visit was on 02/26/24. Will d/c from OT service at this time. Electronically Signed By: Eloina Mayorga OT/s Reviewed/agree with student documentation: Yes Therapist: KEYSHA LAND/Kai Please Sign and return to therapist, thank you for your referral.
== END 2024-03-14 15:25 | disposition home or self-care (01) ==
LOC: HO.OT 08:52
PROVIDERS: PCP Nurse Practitioner Primary Care
DX: G56.01 Carpal tunnel syndrome, right upper limb (principal); M65.4 Radial styloid tenosynovitis [de Quervain]
CPT/HCPCS: 97035; 97110; 97140; 97166

== ENCOUNTER 2024-02-27 08:14 | Outpatient (AMB) | payer MEDICAID, SELFPAY ==
--- NOTE | 2024-02-27 08:27 | MHC.OFFVIS ---
Intake Visit Reasons: PO RT CTR/1st DC release 01/07/24 AR Intake Note: Reema is a 39 year old right hand dominant female who presents today post operatively s/p right 1st dorsal compartment release and right carpal tunnel release DOS: 01/07/[address] Springer. Patient reports pain around her incisions. She is concerned the redness is still present. She continues to go to OT. Denies numbness, tingling, finger locking. Zoning Engineer Required: Yes Zoning Engineer Language: Mechanic Sound Technician Name: GARRISON Wan/AI Allergies naproxen [NAPROXEN] Allergy (Unknown, Verified 02/27/24 08:28) TACHYCARDIA HPI HPI PO RT CTR/1st DC release 01/07/24 AR: Details: Reema is a 39 year old right hand dominant Kazakh speaking woman who returns to discuss her hypersensitivity, S/P right carpal tunnel release & 1st dorsal compartment release, DOS: 01/07/24 She continues to complain of pain & hypersensitivity about her incision sites, and is worried about this. Her sensation is now normal in her right hand, and she denies any numbness. She has completed her course of OT hand therapy, and says she has been massaging her incision sites 1-2x daily. She continues to complain of numbness in the thumb & index fingers of the left hand. Normal sensation to other digits. Symptoms intermittent, but daily, worse at night. She also complains of left radial-sided wrist pain, which she feels is worsening. Her pain is worse with pinching & gripping activities, and she says this limits her when working around her house. [facility] Medical History (Updated 11/07/23 @ 11:22 by Chris Salazar) Left ankle sprain Abscess Morbid obesity Surgical History (Updated 01/07/24 @ 12:44 by Chiara Maloney RN) History of section History of cholecystectomy Family History Maternal Grandmother Diabetes Social History (Updated 11/07/23 @ 11:21 by GARRISON García) Household Members: Children Alcohol intake: never Current occupational status: unemployed Current occupation: rt handed Review of Systems Const All systems reviewed & are unremarkable except as noted in HPI and below Physical Exam Const General: no acute distress and alert Orientation/consciousness: patient oriented x3 Neuro General: patient oriented x3 Extrem Other: Evaluation of Right Upper Extremity: The patient is alert, oriented, and in no acute distress Neuro: Normal sensation today to the tips of all digits Vascular: Cap refill brisk ROM: She can make a fist and extend all her digits No locking or catching Negative Jordin test on the right Not particularly tender over the right 1st dorsal compartment, other than some mild sensitivity directly over the healed surgical incision. Mild tenderness over the carpal tunnel incision as well, which is also well healed No erythema or swelling about either of the surgical sites. Nerve Conduction Study: IMPRESSION: Other than mild right median neuropathy across carpal tunnel, no significant abnormality noted. Shyam Salazar MD Psych Appearance: grossly normal Affect: normal affect Attitude: cooperative Assessment & Plan Assessment & Plan (1) De Quervain's tenosynovitis, right: Code(s): M65.4 - Radial styloid tenosynovitis [de Quervain] Category: Medical (2) De Quervain's tenosynovitis, left: Code(s): M65.4 - Radial styloid tenosynovitis [de Quervain] Category: Medical (3) Carpal tunnel syndrome of right wrist: Code(s): G56.01 - Carpal tunnel syndrome, right upper limb Category: Medical Plan Assessment & Plan: 1. Right De Quervains Tenosynovitis, S/P release DOS: 01/07/24 Negative Jordin test today 2. Right carpal tunnel syndrome, S/P release DOS: 01/07/24 Pre-operative symptoms intermittent, but daily, worse at night Now with normal sensation Patient continues to complain of some pain and hypersensitivity about her incision sites I actually think that she is healing well. I educated her about the postoperative course. I recommend she continue to work on at-home exercises for normalizing function, and to massage about her incision sites to reduce her hypersensitivity. This should be done every hour when possible. She should continue to attend OT hand therapy to work on desensitization & normalizing function She will follow up prn 3. Left De Quervains Tenosynovitis Mildly positive Jordin test 4. Left hand numbness In the left thumb & index finger, normal sensation in middle, ring, and small Symptoms intermittent, but daily No evidence of carpal or cubital tunnel syndrome seen on NCS I would like for her to be happy with her right hand before we consider any interventions for the left hand. Scribed for Naida Springer MD by Chris Salazar, bilingual medical receptionist, on 02/27/24 at 8:50 AM, EST. Coding Level of Care Code Global (73481) Diagnoses De Quervain's tenosynovitis, right M65.4 De Quervain's tenosynovitis, left M65.4 Carpal tunnel syndrome of right wrist G56.01
== END 2024-02-27 09:33 | disposition home or self-care (01) ==
PROVIDERS: PCP Nurse Practitioner Primary Care; Visit Provider Orthopaedic Surgery
DX: M65.4 Radial styloid tenosynovitis [de Quervain] (principal); G56.01 Carpal tunnel syndrome, right upper limb
CPT/HCPCS: 99024

== ENCOUNTER → 2024-02-27 08:14 | Outpatient (BNVA) | payer MEDICAID, SELFPAY | PROVIDERS: PCP Nurse Practitioner Primary Care; Visit Provider Orthopaedic Surgery | DX: G56.01 Carpal tunnel syndrome, right upper limb (principal); M65.4 Radial styloid tenosynovitis [de Quervain] | CPT/HCPCS: 99212 ==

== ENCOUNTER 2024-07-25 08:13 | Outpatient (REF) | payer MEDICAID, SELFPAY ==
--- NOTE | ~2024-07-25 | XR_ITS ---
EXAMINATION: XR HAND, RIGHT CLINICAL INFORMATION: M79.641 - Pain in right hand COMPARISON: 03/07/2023. TECHNIQUE: PA, lateral, and oblique views of the right hand. FINDINGS: No fracture, dislocation, or suspicious bone lesion. Normal bone mineralization. Normal alignment. Joint spaces are preserved. No significant arthropathy. No periarticular osteopenia or erosions. Soft tissues appear normal. XR/XR hand RT min 3V IMPRESSION: Normal right hand and wrist. Electronically signed by: Guillermo Valero MD 07/29/2024 08:10 AM EDT
--- OUTSIDE RECORDS SUMMARY | 2024-07-25 08:18 | XMS_ITS | Encounter Summary ---
Author Organization [employer] [facility] Address [address] [place] [address] Care Team Providers Care Economic Development Manager Name Role Phone Svetlana Sloan Primary Care Provider [phone] Reason for Visit * Reason Onset Date Comments Results 11/27/2022 Encounter Details Date Type Department Care Team ([facility] st Contact Info) Description 11/27/2022 Telephone [facility] MEDICINE [address] [place], [place] [phone] Svetlana Sloan ANP [address] [place], [place] [phone] Results Social History Tobacco Use Types Packs/Day Years Used Date Smoking Tobacco: Former Cigarettes PHQ-2 Answer Date Recorded Patient Health Questionnaire-2 Score 0 08/08/2022 Depression Answer Date Recorded Patient Health Questionnaire-2 Score 0 08/08/2022 Comments Unknown Sex and Gender Information Value Date Recorded Sex Assigned at Female 01/30/2022 10:32 AM EDT Legal Sex Female 10:32 AM EDT Gender Identity Choose not to disclose 10:32 AM EDT Sexual Orientation Choose not to disclose 2021 10:32 AM EDT documented as of this encounter Miscellaneous Notes * Telephone Encounter - Jalyn Saez RN - 02/15/2023 11:32 AM EST Telephone call returned to pt regarding below message. Inform US showed no renal cysts or masses. It was limited but from what they saw, appeared to have no significant findings. Inquired if having any Sx. Pt declined this. Pt is requesting repeat CBC d/t it being abnormal last time she had it drawn. Informed was mildly abnormal but will send request to PCP. Pt verbalized understanding and deniedhaving any further questions or concerns at this time. * Telephone Encounter - Rubio Harrison - 02/14/2023 3:53 PM EST Tc from patient requesting call back in regards to lab results patient does not use mychart and patient speaks swedish. * Telephone Encounter - Ana May - 01/26/2023 3:47 PM EDT Tc from pt calling in regards to message above. Please contact pt at [phone] (Central African) * Telephone Encounter - Ashley Vera - 01/02/2023 12:54 PM EDT Tc from patient re calling in regards to renal US results done in [facility] in [place], [place]. * Telephone Encounter - Holly Schilling - 12/28/2022 8:35 AM EDT Tc from patient re calling in regards to renal US results done in [facility] in [place] Patient doesn't recall on what date. Patient speaks swedish. * Telephone Encounter - Ana May - 11/27/2022 10:39 AM EDT Tc from pt requesting results for renal US. States she has not heard anything. Please contact pt at [phone] (Central African) documented in this encounter Plan of Treatment Upcoming Encounters Date Type Department Care Team (Late st Contact Info) Description 09/22/2024 2:30 PM EDT Office Visit [facility] OPTOMETRY [address] [place], [place] [phone] Lakisha Beasley, OD [address] [place] [address] documented as of this encounter Visit Diagnoses Not on filedocumented in this encounter Care Teams Economic Development Manager Relationship Specialty Start Date End Date Svetlana Sloan ANP [address] [place] [address] PCP - General Family Medicine 11/22/20 documented as of this encounter
--- OUTSIDE RECORDS SUMMARY | 2024-07-25 08:18 | XMS_ITS | Encounter Summary ---
Author Organization [employer] [facility] Address [address] [facility] 7t [place] [address] Care Team Providers Care Relationship Advisor Name Role Phone Svetlana Sloan Primary Care Provider [phone] Reason for Visit * Reason Onset Date Comments Nurse Triage 09/14/2023 Encounter Details Date Type Department Care Team (Late st Contact Info) Description 09/14/2023 Telephone [facility] MEDICINE [address] [place], [place] [phone] Svetlana Sloan ANP [address] [place], [place] [phone] Nurse Triage Social History Tobacco Use Types Packs/Day Years Used Date Smoking Tobacco: Former Cigarettes Alcohol Use Standard Drinks/Week Comments Defer 0 (1 standard drink = 0.6 oz pur e alcohol) Alcohol Answer Date Recorded Frequency of Alcohol Consumption Not on file 09/04/2023 Average Number of Drinks Not on file 024 Frequency of Binge Drinking Not on file 07/2023 Score 0 09/04/2023 Depression Answer Date Recorded Patient Health Questionnaire-9 Score 0 09/04/2023 Patient Health Questionnaire-9 Score 0 09/04/2023 Last PHQ-9: Questionnaire Data Not on file 0 09/04/2023 Housing Stability Answer Date Recorded What is your housing situation today? I have david enrique 09/04/[address] you li ve. Do you have problems with any of the following? None of the above 09/04/2023 Food Insecurity Answer Date Recorded Within the past 12 months, y ou worried that your food would run out before you got money to buy more: Never True 09/04/2023 Within the past 12 months,th e food you bought just didn't last and you didn't have enough money to get more: Never True 07/2023 Transportation Answer Date Recorded In the past 12 months, has l ack of transportation kept you from medical appts, meetings, work or from getting things needed for daily living? No 09/04/2023 Utilities Answer Date Recorded In the past 12 months, has t he electric, gas, oil or water company threatened to shut off services in your home? No 09/04/2023 Depression Answer Date Recorded Patient Health Questionnaire-2 Score 0 09/04/2023 Comments Unknown Sex and Gender Information Value Date Recorded Sex Assigned at Female 01/30/2022 10:32 AM EDT Legal Sex Female 10:32 AM EDT Gender Identity Choose not to disclose 10:32 AM EDT Sexual Orientation Choose not to disclose 2021 10:32 AM EDT documented as of this encounter Miscellaneous Notes * Telephone Encounter - Reyna Florez LPN - 09/14/2023 10:03 AM EDT Triage call returned to patient with [facility] Quality Control Coordinator [id number]. Patient with rash described as below the knee n left leg from ankle to calf. No known exposure to irritants. Has been using alcohol todiminish itching. No fluid filled blisters just red bumps. No fever or spreading redness. Disposition reviewed and patient in agreement with plan. Unable to come to [facility] has appt today at [facility] and will seek evaluation there at time of appt. Reviewed with patient home care recommendations and reasons to call back. Pt verbalized understanding and agrees. Protocol Used: Rash or Redness - Localized (Adult) Protocol-Based Disposition: See in Office or Video Visit Today Override (Final) Disposition: Go to ED/UCC Now (or to Office with PCP Approval) Override Reason: No appointments available Override Notes: Patient unable to come to [facility] today. Video visit offer not recorded Positive Triage Question: * Patient wants to be seen * All higher-acuity triage questions were negative Care Advice Discussed: * Avoid the Cause * Wash the Area * Cold Pack for Mild Itching or Mild Pain * Hydrocortisone Cream for Itching * Don't Scratch * Reasons To Call Back - Rash spreads or becomes worse - Rash lasts longer than 1 week - You become worse * Telephone Encounter - Naveen Jimenez - 09/14/2023 9:36 AM EDT Symptom: Rash or Redness on One Body Area Only Outcome: Talk to a nurse or provider within 15 minutes Reason: Dark blood red spots (not pink) Tajik Speaker (Accepted Quality Control Coordinator) documented in this encounter Plan of Treatment Upcoming Encounters Date Type Department Care Team (Late st Contact Info) Description 09/22/2024 2:30 PM EDT Office Visit [facility] [address] [place] [address] Lakisha Beasley, OD [address] [place] [address] documented as of this encounter Visit Diagnoses Not on filedocumented in this encounter Additional Health Concerns Assessment Noted Time PHQ-9 Depression Total Score: 0 09/04/19 24 12:17 PM EDT documented as of this encounter Care Teams Relationship Advisor Relationship Specialty Start Date End Date Svetlana Sloan ANP [address] [place], [place] [phone] PCP - General Family Medicine 11/22/20 documented as of this encounter
--- OUTSIDE RECORDS SUMMARY | 2024-07-25 08:18 | XMS_ITS | Encounter Summary ---
Author Organization [facility] Address [address] [facility] [facility] 7[address] [place] [address] Care Team Providers Care Edge Kitter Name Role Phone Svetlana Sloan Primary Care Provider [phone] Encounter Details Date Type Department Care Team (Late st Contact Info) Description 06/05/2022 Orders Only [facility] MEDICINE [address] [place] [address] Patricia Wagoner LPN Social History Tobacco Use Types Packs/Day Years Used Date Smoking Tobacco: Never Assessed Comments Unknown Sex and Gender Information Value Date Recorded Sex Assigned at Female 01/30/2022 10:32 AM EDT Legal Sex Female 10:32 AM EDT Gender Identity Choose not to disclose 10:32 AM EDT Sexual Orientation Choose not to disclose 2021 10:32 AM EDT documented as of this encounter Plan of Treatment Upcoming Encounters Date Type Department Care Team (Late st Contact Info) Description 09/22/2024 2:30 PM EDT Office Visit [facility] [address] [place] [address] Lakisha Beasley, OD [address] [place] [address] documented as of this encounter Visit Diagnoses Not on filedocumented in this encounter Care Teams Edge Kitter Relationship Specialty Start Date End Date Svetlana Sloan ANP 230 [place] [address] PCP - General Family Medicine 11/22/20 documented as of this encounter
--- OUTSIDE RECORDS SUMMARY | 2024-07-25 08:18 | XMS_ITS | Clinical Summary ---
Author Organization [employer] Address [address] [facility] 7t [place] [address] Care Team Providers Care Woodyard Crane Operator Name Role Phone Svetlana Sloan Primary Care Provider [phone] Allergies Active Allergy Reactions Criticality Noted Date Comments Naproxen Palpitations Low 03/23/2020 Medications albuterol (Ventolin HFA) 108 (90 Base) MCG/ACT inhalerIndicatio ns:Wheezing Inhale 2 puffs every 6 (six) hours if needed for wheezing. 18 g 1 2 Active famotidine (Pepcid) 40 MG tablet TOME RUBÉN TABLETA POR V A ORAL AL ACOSTARSE 3 Active lamoTRIgine (LaMICtal) 150 MG tablet TAKE 1 TABLET BY MOUTH AT BEDTIME REBECCA 1 TABLETA A LA HORA DE DORMIR 3 Active mirtazapine (Remeron) 7.5 MG tablet TOME RUBÉN TABLETA TODOS LOS D AL ACOSTARSE 3 Active prazosin (Minipress) 2 MG capsule TOME RUBÉN C PSULA TODOS LOS D AL ACOSTARSE 3 Active metFORMIN (Glucophage) 500 MG tablet take 1 tablet by oral route 2 times every day with morning and evening meals 180 tablet 1 3 Active clotrimazole (Lotrimin) 1 % creamIndications :Rash APPLY TWICE DAILY TO AFFECTED AREA FOR 2 WEEKS 60 g 3 Active levothyroxine (Synthroid, Levoxyl) 25 MCG tabletIndication s:Hypothyroidism , unspecified type Take 1 tablet (25 mcg) by mouth Once daily. 90 tablet 3 4 Active Diclofenac Sodium (Voltaren) 1 % gelIndications:R ight wrist pain Apply 2g up to 4x/d as needed for pain/swelling 100 g 2 4 Active ferrous sulfate 325 (65 Fe) MG EC tabletIndication s:Anemia, unspecified type TAKE 1 TABLET BY ORAL ROUTE EVERY OTHER DAY WITH ORANGE JUICE. 90 tablet 3 4 Active triamcinolone (Kenalog) 0.1 % creamIndications :Rash APPLY TOPICALLY IF NEEDED IN THE MORNING AND AT BEDTIME (PAIN AND SWELLING). 30 g 2 4 Active fluticasone furoate (Arnuity Ellipta) 100 MCG/ACT inhaler Inhale 1 puff in the morning. 1 each 11 4 Active acyclovir (Zovirax) 400 MG tabletIndication s:Genital herpes simplex, unspecified site TAKE 1 TABLET BY MOUTH EVERY 12 HOURS 60 tablet 11 4 Active Additional Information Patient not taking.Reported on 08/13/2023 chlorhexidine (Peridex) 0.12 % solution Swish 15 mL morning and night for 1 minute. Spit, do not swallow. Do not eat or drink for 30 minutes following use. 473 mL 4 Active omeprazole (PriLOSEC) [address] capsule TAKE 1 CAPSULE BY MOUTH EVERY DAY BEFORE A MEAL 90 capsule 1 4 Active cetirizine (ZyrTEC) 10 MG tabletIndication s:Non-seasonal allergic rhinitis, unspecified trigger TAKE 1 TABLET (10 MG) BY MOUTH ONCE DAILY NEEDED FOR ALLERGIES. 90 tablet 1 4 Active meloxicam (Mobic) 7.5 MG tabletIndication s:Chronic low back pain, unspecified back pain laterality, unspecified whether sciatica present TAKE 1 TABLET BY MOUTH IN THE MORNING AND AT BEDTIME IF NEEDED FOR MODERATE PAIN 90 tablet 4 Active Active Problems Problem Noted Date Diagnosed Date Dental abscess 08/13/2023 Severe dental caries 08/13/2023 Fatigue 06/05/2022 Chronic cough 07/30/2018 Posttraumatic stress disorder 07/30/2018 Large breasts 05/14/2018 Chronic low back pain 01/21/2018 Dyspnea on exertion 01/21/2018 Edema of lower extremity 12/07/2017 Migraine without aura, not refractory 12/07/2017 Wheezing 12/07/2017 Chronic urticaria 07/31/2017 Thyroglossal duct cyst 07/31/2017 Indigestion 03/07/2017 Allergic rhinitis 01/12/2017 Recurrent major depressive episodes, moderate Encounters Date Type Department Care Team Description 06/18/2024 Telephone [facility] MEDICINE [address] [place], [place] [phone] Svetlana Sloan ANP PT-1 06/13/2024 Population Health Risk Score [facility] () Department [address] [id number] Provider, Population Health Generic from Last 3 Months Immunizations Name Administration Dates Next Due Tdap 09/21/2021,12/14/2020 Family History Medical History Relation Name Comments Asthma Maternal Grandmother Thyroid disease Maternal Grandmother Hypothyroidism Mother Alzheimer's disease Paternal Grandfather Relation Name Status Comments Maternal Grandmother Mother Paternal Grandfather Social History Tobacco Use Types Packs/Day Years Used Date Smoking Tobacco: Former Cigarettes Tobacco Cessation:Counseling Given: Not Answered Alcohol Use Standard Drinks/Week Comments Defer 0 [...] not to disclose 2021 10:32 AM EDT Last Filed Vital Signs Vital Sign Reading Time Taken Comments Blood Pressure 132/80 12/14/2023 10:04 AM EDT Pulse 78 12/14/2023 10:04 AM EDT Temperature 37.1 ??C (98.7 ??F) 12/14/2023 10:04 AM E DT Respiratory Rate 14 12/14/2023 10:04 AM EDT Oxygen Saturation 99% 01/31/2023 11:10 AM EDT Inhaled Oxygen Concentration - - Weight 139 kg (306 lb 4 oz) 12/14/2023 10:04 AM EDT Height 160 cm (5' 3 ) 12/14/2023 10:04 AM EDT Body Mass Index 54.25 12/14/2023 10:04 AM EDT Plan of Treatment Upcoming Encounters Date Type Department Care Team (Late st Contact Info) Description 09/22/2024 2:30 PM EDT Office Visit [facility] [address] [place] [address] Ramos, Lakisha, OD [address] [place] [address] Health Maintenance Due Date Last Done Comments Family Planning (PISQ) 2001 Hepatitis B Vaccines (1 of 3 - 19+ 3-dose series) 2005 Dental Oral Exam 10/11/2021 04/12/2021, 03/2018, 04/11/2017 Dental Prophylaxis 10/21/2021 04/22/2021 Dental X-Ray: Bitewings 04/13/2022 04/12/2021, 04/11 Cervical Cancer Screening 02/24/2023 HPV/Cotest 02/24/2023 Pap Smear 02/24/2023 02/25/2020 COVID-19 Vaccine ( season) 2023 06/16/2021, 01/14/2021, 12/20/2020 Influenza Vaccine (#1) 2023 Alcohol/Substance Use Screening 09/03/2024 09/04/2023 Depression Screening 09/03/2024 09/04/2023, 09/04/19 SDOH Screening 09/03/2024 09/04/2023 Tobacco Screening 09/03/2024 09/04/2023 Dental X-Ray: Full Mouth 08/13/2026 08/13/2023, 04/02 Lipid Panel 03/28/2028 03/28/2023, 11/02, 06/29/2020, Additional history exists DTaP/Tdap/Td Vaccines (3 - Td or Tdap) 09/22/2031 09/21/2021, 12/14/2020 Zoster Vaccines (1 of 2) 01/16/2036 RSV Patients and Patients Aged 60 years or older (1 - 1-dose 75+ series) 2061 HIV Screening Completed 11/30/2021 Hepatitis C Screening Completed 11/30/2021, 020 HIB Vaccines Aged Out No longer eligi ble based on patient's age to complete this topic HPV Vaccines Aged Out No longer eligi ble based on patient's age to complete this topic Hepatitis A Vaccines Aged Out No long er eligible based on patient's age to complete this topic IPV Vaccines Aged Out No longer eligi ble based on patient's age to complete this topic Meningococcal Vaccine Aged Out No sushant milagro eligible based on patient's age to complete this topic Pneumococcal Vaccine: Pediatrics (0 to 5 Years) and At-Risk Patients (6 to 49) Years) Aged Out No longer eligible based on patient's age to complete this topic RSV under 20 months Aged Out No longe r eligible based on patient's age to complete this topic Rotavirus Vaccines Aged Out No longer eligible based on patient's age to complete this topic Procedures Procedure Name Priority Date/Time Associated Diagnosis Comments PANORAMIC RADIOGRAPHIC IMAGE Routine 08/13/2023 8:00 AM EDT LIPID PANEL, STANDARD Routine 03/28/2023 9:42 AM EST High triglycerides ZZZ HISTORICAL HEPATITIS C AB W/REFL TO HCV RNA, QN, PCR Routine 11/30/2021 11:35 AM EDT HIV 1/2 ANTIGEN/ANTIBODY, FOURTH GENERATION W/RFL Routine 11/30/2021 11:35 AM EDT PROPHYLAXIS - ADULT Routine 04/22/2021 1 2:00 AM EST BITEWINGS - 4 RADIOGRAPHIC IMAGES Routine 04/12/2021 12:00 AM EST PERIODIC ORAL EVALUATION - ESTABLISHED PATIENT Routine 04/12/2021 12:00 AM EST [facility] PAP Routine 02/25/2020 12:00 AM EST from Last 3 Months or Most Recently Relevant to Health Maintenance Results * (ABNORMAL) Lipid Panel, Standard (03/28/2023 9:42 AM EST) Triglycerides 214(H) <150 mg/dL [facility] Comment:Desirable Triglyceri de: less than 150 mg/dLBorderline High Triglyceride 150-199 mg/dLHigh Triglyceride: 200-499 mg/dLVery High Triglyceride: greater than or equal to 5OO mg/dL Cholesterol 145 <200 mg/dL [facility] Comment:Desirable Cholestero l: less than 200 mg/dLBorderline High Cholesterol: 200-239 mg/dLHigh Cholesterol: greater than 239 mg/dL LDL Cholesterol Calculated 71 <100 mg/dL [facility] Comment:Desirable LDL: less than 100 mg/dLNear Optimal/Above Optimal LDL: 110- 129 mg/dLBorderline High LDL: 130-159 mg/dLHigh LDL: 160-189 mg/dLVery High LDL: greater than or equal to 190 mg/dL HDL Cholesterol 32(L) >40 mg/dL [facility] Comment:Desirable HDL: great er than 40 mg/dL Note: This HDL assay may give artificially low results in patients with liver disease. Blood Venous blood specimen / Unknown 03/28/2023 9:42 AM EST 03/28/2023 11:31 AM EST us Svetlana Sloan ANP LAB BLOOD ORDERABLES Final Resul t [facility] [address] [place] [address] [phone] * HEPATITIS C AB W/REFL TO HCV RNA, QN, PCR (11/30/2021 11:35 AM EDT) HEPATITIS C ANTIBODY NON-REACT MALIA NON-REACT MALIA [facility] INDEX 0.19 <1.00 [facility] Comment: ?? HCV antibody was non-reactive. There is no laboratory ?? evidence of HCV infection. ?? In most cases, no further action is required. However, if recent HCV exposure is suspected, a test for HCV RNA (test code 28419) is suggested. ?? For additional information please refer to http://[employer] Tower/faq/PXD50j0 (This link is being provided for informational/ educational purposes only.) ?? 11/30/2021 11:3 5 AM EDT Reema Greer MD HISTORICAL/NON ORDERA BLE LABS Final Result [facility] [address] * HIV 1/2 ANTIGEN/ANTIBODY,FOURTH GENERATION W/RFL (11/30/2021 11:35 AM EDT) HIV-1/2 ANTIGEN AND ANTIBODIES, 4TH GENERATION W/ REFLEX NON-REACT MALIA NON-REACT MALIA [facility] Comment: HIV-1 antigen and HIV-1/HIV-2 antibodies were not detected. There is no laboratory evidence of HIV infection. ?? PLEASE NOTE: This information has been disclosed to you from records whose confidentiality may be protected by state law. ??If your state requires such protection, then the state law prohibits you from making any further disclosure of the information without the specific written consent of the person to whom it pertains, or as otherwise permitted by law. A general authorization for the release of medical or other information is NOT sufficient for this purpose. ? For additional information please refer to http://[employer]/faq/IEZ537 (This link is being provided for informational/ educational purposes only.) ? The performance of this assay has not been clinically validated in patients less than 2 years old. ?? HIV-1/2 ANTIGEN AND ANTIBODIES, 4TH GENERATION W/ REFLEX NON-REACT MALIA NON-REACT MALIA [facility] Comment: HIV-1 antigen and HIV-1/HIV-2 antibodies were not detected. There is no laboratory evidence of HIV infection. ?? PLEASE NOTE: This information has been disclosed to you from records whose confidentiality may be protected by state law. ??If your state requires such protection, then the state law prohibits you from making any further disclosure of the information without the specific written consent of the person to whom it pertains, or as otherwise permitted by law. A general authorization for the release of medical or other information is NOT sufficient for this purpose. ? For additional information please refer to http://[employer]/faq/KYB493 (This link is being provided for informational/ educational purposes only.) ? The performance of this assay has not been clinically validated in patients less than 2 years old. ?? 11/30/2021 11:3 5 AM EDT Reema Greer MD LAB BLOOD ORDERABLES Final Result [facility] [address] * THINPREP TIS PAP (02/25/2020 12:00 AM EST) Clinical Information: None given [facility] COMMENT SEE COMMENT [facility] Comment: EXPLANATORY NOTE: ? The Pap is a screening test for cervical cancer. It is ?? not a diagnostic test and is subject to false negative ?? and false positive results. It is most reliable when a ?? satisfactory sample, regularly obtained, is submitted ?? with relevant clinical findings and history, and when ?? the Pap result is evaluated along with historic and ?? current clinical information. ?? COMMENT: This Pap test has been evaluated with computer assisted technology. [facility] Sock And Stocking Ironer : SEE COMMENT [facility] Comment: SL, CT(ASCP) CT screening location: [address] ??[id number] Interpretation/R esult: Negative for intraepithelial lesion or malignancy. [facility] LMP: NONE GIVEN [facility] Prev. BX: NONE GIVEN [facility] Prev. PAP: NONE GIVEN [facility] SOURCE: None given [facility] Statement Of Adequacy: SEE COMMENT [facility] Comment: Satisfactory for evaluation. Endocervical/transformation zone component present. Partially obscuring inflammation Age and/or menstrual status not provided Partially obscuring blood 02/25/2020 us Historical Provider LAB PATHOLOGY ORDERABLES Final Result [facility] [address] from Last 3 Months or Most Recently Relevant to Health Maintenance [place] [place] [address] [facility] MEDICAID STAND ADULT Care Teams Woodyard Crane Operator Relationship Specialty Start Date End Date Svetlana Sloan ANP [address] [place] [id number] PCP - General Family Medicine 11/22/20
--- OUTSIDE RECORDS SUMMARY | 2024-07-25 08:18 | XMS_ITS | Encounter Summary ---
Author Organization [employer] Address [address] [place] [address] Care Team Providers Care Route Cdl Driver Name Role Phone Svetlana Sloan Primary Care Provider [phone] Reason for Visit * Reason Comments Med Refill Encounter Details Date Type Department Care Team (Late st Contact Info) Description 05/10/2023 Refill [facility] [address] [place] [address] Shona Yousif FNP Social History Tobacco Use Types Packs/Day Years Used Date Smoking Tobacco: Former Cigarettes PHQ-2 Answer Date Recorded Patient Health Questionnaire-2 Score 0 08/08/2022 Housing Stability Answer Date Recorded What is your housing situation today? I have david enrique 01/31/[address] you li ve. Do you have problems with any of the following? None of the above 01/31/2023 Food Insecurity Answer Date Recorded Within the past 12 months, y ou worried that your food would run out before you got money to buy more: Never True 01/31/2023 Within the past 12 months,th e food you bought just didn't last and you didn't have enough money to get more: Never True 04/2022 Transportation Answer Date Recorded In the past 12 months, has l ack of transportation kept you from medical appts, meetings, work or from getting things needed for daily living? No 01/31/2023 Utilities Answer Date Recorded In the past 12 months, has t he electric, gas, oil or water company threatened to shut off services in your home? No 01/31/2023 Depression Answer Date Recorded Patient Health Questionnaire-2 [...] Description 09/22/2024 2:30 PM EDT Office Visit [facility] [address] [place] [address] Lakisha Beasley, OD [address] [place] [address] documented as of this encounter Visit Diagnoses Not on filedocumented in this encounter Care Teams Route Cdl Driver Relationship Specialty Start Date End Date Svetlana Sloan ANP [address] [place], [place] [phone] PCP - General Family Medicine 11/22/20 documented as of this encounter
--- OUTSIDE RECORDS SUMMARY | 2024-07-25 08:18 | XMS_ITS | Encounter Summary ---
Author Organization [employer] [facility] Address [address] [facility] 7t [place] [address] Care Team Providers Care Technical Education Teacher Name Role Phone Svetlana Sloan Primary Care Provider [phone] Reason for Visit * Reason Onset Date Comments Pt-1 06/21/2023 Encounter Details Date Type Department Care Team (Late st Contact Info) Description 06/21/2023 Telephone [facility] MEDICINE [address] [place], [place] [phone] Svetlana Sloan ANP [address] [place], [place] [phone] Pt-1 Social History Tobacco Use Types Packs/Day Years [...] encounter Miscellaneous Notes * Telephone Encounter - Naveen Tony - 06/21/2023 9:11 AM EDT Patient calling requesting PT1 Home Address verified: Y/N: Yes Provider name or facility name: [facility] Facility Address: [address] [place] [address] Escort needed: Y/N: Yes Do you have a wheelchair: Y/N: No If yes- Manual or electric: N/A Visits: twice a week documented in this encounter Plan of Treatment Upcoming Encounters Date Type Department Care Team (Late st Contact Info) Description 09/22/2024 2:30 PM EDT Office Visit [facility] [address] [place] [address] Ramos, Lakisha, OD [address] [place] [address] documented as of this encounter Visit Diagnoses Not on filedocumented in this encounter Care Teams Technical Education Teacher Relationship Specialty Start Date End Date Svetlana Sloan ANP [address] [place] [address] PCP - General Family Medicine 11/22/20 documented as of this encounter
--- OUTSIDE RECORDS SUMMARY | 2024-07-25 08:18 | XMS_ITS | Encounter Summary ---
Author Organization [employer] Address [address] [facility] 7t [place] [address] Care Team Providers Care Marketing Communications Manager Name Role Phone Svetlana Sloan Primary Care Provider [phone] Reason for Visit * Reason Onset Date Comments Lab Orders 03/05/2023 Encounter Details Date Type Department Care Team (Late st Contact Info) Description 03/05/2023 Telephone [facility] MEDICINE [address] [place], [place] [phone] Svetlana Sloan ANP [address] [place], [place] [phone] Lab Orders Social History Tobacco Use Types Packs/Day Years [...] Telephone Encounter - Jalyn Saez RN - 03/09/2023 1:54 PM EST Telephone call returned to pt regarding below message. Inquired what labs she is requesting. Pt states last appt was told she would have a follow up for her pre- diabetes and that she would be due forher yearly labs in 3 months but she never got the appointment so figured she would call to get lab orders for my diabetes, cholesterol, and thyroid . No recalls. Booked follow up with PCP for 04/04/23. Pt agrees with plan. Mailed appt reminder * Telephone Encounter - Ashley Vera - 03/05/2023 3:58 PM EST Tc from pt requesting blood work orders. No further details provided. documented in this encounter Plan of Treatment Upcoming Encounters Date Type Department Care Team (Late st Contact Info) Description 09/22/2024 2:30 PM EDT Office Visit [facility] OPTOMETRY [address] [place] [address] Ramos, Lakisha, OD [address] [place] [address] documented as of this encounter Visit Diagnoses Not on filedocumented in this encounter Care Teams Marketing Communications Manager Relationship Specialty Start Date End Date Svetlana Sloan ANP [address] [place] [address] PCP - General Family Medicine 11/22/20 documented as of this encounter
--- OUTSIDE RECORDS SUMMARY | 2024-07-25 08:18 | XMS_ITS | Encounter Summary ---
Author Organization [facility] Address [address] [facility] 7t [place] [address] Care Team Providers Care Plant Guard Name Role Phone Svetlana Sloan Primary Care Provider [phone] Encounter Details Date Type Department Care Team (Late st Contact Info) Description 03/16/2022 Orders Only [facility] MED & PEDS [address] [place], [place] [phone] Svetlana Sloan ANP [address] [place] [address] Wheezing (Primary Dx) Social History Tobacco Use Types Packs/Day Years [...] Description 09/22/2024 2:30 PM EDT Office Visit [facility] OPTOMETRY [address] [place] [address] Ramos, Lakisha, OD 230 [place] [address] documented as of this encounter Visit Diagnoses Diagnosis Wheezing- Primary documented in this encounter Care Teams Plant Guard Relationship Specialty Start Date End Date Svetlana Sloan ANP [address] [place] [address] PCP - General Family Medicine 11/22/20 documented as of this encounter
--- OUTSIDE RECORDS SUMMARY | 2024-07-25 08:18 | XMS_ITS | Encounter Summary ---
Author Organization [employer] Address [address] [facility] 7t [place] [address] Care Team Providers Care Autoglazier Name Role Phone Svetlana Sloan Primary Care Provider [phone] Reason for Visit * Reason Comments Med Refill Encounter Details Date Type Department Care Team (Late st Contact Info) Description 01/10/2024 Refill [facility] MEDICINE [address] [place], [place] [phone] Svetlana Sloan ANP 230 [place], [place] [phone] Rash Social History Tobacco Use Types Packs/Day Years [...] Description 09/22/2024 2:30 PM EDT Office Visit [facility] OPTOMETRY [address] [place] [address] Lakisha Beasley, OD 230 [place] [address] documented as of this encounter Visit Diagnoses Diagnosis Rash Rash and other nonspecific skin eruption documented in this encounter Additional Health Concerns Assessment Noted Time PHQ-9 Depression Total Score: 0 09/04/19 24 12:17 PM EDT documented as of this encounter Care Teams Autoglazier Relationship Specialty Start Date End Date Svetlana Sloan ANP [address] [place] [address] PCP - General Family Medicine 11/22/20 documented as of this encounter
--- OUTSIDE RECORDS SUMMARY | 2024-07-25 08:18 | XMS_ITS | Encounter Summary ---
Author Organization [facility] Address [address] [facility] 7t [place] [address] Care Team Providers Care Chrome Worker Name Role Phone Svetlana Sloan Primary Care Provider [phone] Encounter Details Date Type Department Care Team (Latest Contact Info) Description 04/22/2021 Abstract [facility] CONVERSIONS Dental, Provider, DDS Social History Tobacco Use Types Packs/Day Years [...] Office Visit [facility] OPTOMETRY [address] [place] [address] Ramos, Lakisha, OD [address] [place] [address] documented as of this encounter Visit Diagnoses Not on filedocumented in this encounter Care Teams Chrome Worker Relationship Specialty Start Date End Date Svetlana Sloan ANP 230 [place] [address] PCP - General Family Medicine 11/22/20 documented as of this encounter
== END 2024-07-25 08:14 | disposition home or self-care (01) ==
LOC: HO.HOSX 08:13
DX: M79.641 Pain in right hand (principal); M65.4 Radial styloid tenosynovitis [de Quervain]; G56.01 Carpal tunnel syndrome, right upper limb
CPT/HCPCS: 73130; 99212

== ENCOUNTER 2024-07-25 12:50 | Outpatient (AMB) | payer MEDICAID, SELFPAY ==
--- NOTE | 2024-07-25 13:02 | MHC.OFFVIS ---
Intake Visit Reasons: New Prob - right hand pain, DOI Intake Note: Reema is a 39 year old right hand dominant female who presents today for a new problem visit for her right hand pain s/p fall DOI: 07/07/24. Patient reports she has this pain before her injury and now it is worse. She states that she having a lot of pain and she recently took some ibuprofen for her pain before coming here. 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 Allergies naproxen [NAPROXEN] Allergy (Unknown, Verified 07/25/24 13:04) TACHYCARDIA HPI HPI New Prob - right hand pain, DOI : Details: Reema is a 39 year old right hand dominant female who presents today for a new problem visit for her right hand pain s/p fall DOI: 07/07/24. Patient reports she has this pain before her injury and now it is worse. She states that she having a lot of pain and she recently took some ibuprofen for her pain before coming here. 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 The patient reports that the pain is diffuse in her right hand, but it was worse at the base of the right thumb near her incision for her right 1st dorsal compartment release. [facility] Medical History (Updated 07/26/24 @ 10:58 by BOLIVAR Wolf) Left ankle sprain Abscess Morbid obesity Surgical History (Updated 01/07/24 @ 12:44 by Chiara Maloney RN) History of section History of cholecystectomy Family History Maternal Grandmother Diabetes Social History (Updated 07/25/24 @ 13:05 by Darlin Jimenez) Household Members: Children Alcohol intake: never Patient Tobacco Use Status: Never used Tobacco Current occupational status: unemployed Current occupation: rt handed Review of Systems Const All systems reviewed & are unremarkable except as noted in HPI and below Physical Exam Extrem Other: Patient is alert, oriented, and in no acute distress. Neuro: Normal sensation of the tips of all digits of the right hand at this time Vascular: Cap refill brisk Pain: Diffuse tenderness to palpation about the right hand and wrist, worst in the dorsal and radial aspect Tenderness to palpation of both the right anatomical snuffbox and scaphoid tubercle Minimal tenderness to palpation of radial styloid, ulnar styloid ROM: Patient was able to make a closed fist and extend all digits of the right hand fully Wrist range of motion limited due to pain, able to flex to approximately 50 degrees past neutral and extend to approximately 30 degrees past neutral, only limitation is pain Skin: No lacerations or abrasions. Well-healed incision sites noted on the volar aspect of the right wrist and over the 1st dorsal compartment of the right wrist General: No ecchymosis, erythema, or evidence of infection. Psych: Appears grossly normal Affect normal Attitude cooperative Results Reviewed Results Reviewed: X-rays obtained in the office today and independently reviewed by me, Kamran Mane PA-C, demonstrate no fracture or acute bony abnormality of the right wrist. Assessment & Plan Assessment & Plan (1) De Quervain's tenosynovitis, right: Code(s): M65.4 - Radial styloid tenosynovitis [de Quervain] Category: Medical (2) Carpal tunnel syndrome of right wrist: Code(s): G56.01 - Carpal tunnel syndrome, right upper limb Category: Medical (3) Tenderness of anatomical snuffbox: Code(s): M79.643 - Pain in unspecified hand Category: Medical Plan 1. Right wrist pain status post fall Date of injury 07/07/2024 Patient is educated about this condition Patient is educated about the typical recovery course This time, due to the presence of snuffbox and scaphoid tubercle tenderness, patient was provided a Velcro wrist splint to wear like a cast except for bathing Patient was advised she should follow-up with us in 2 weeks, and if she is still experiencing significant pain in these areas I will consider MRI for assessment of the scaphoid for potential occult fracture Patient was amenable to this plan Follow-up in 2 weeks with repeat x-rays for reassessment, sooner with any acute concerns Orders: Orders XR hand RT min 3V 07/25/24 M79.641 - Pain in right hand Coding Level of Care Code Est Pt Level 3 (88267) Diagnoses De Quervain's tenosynovitis, right M65.4 Carpal tunnel syndrome of right wrist G56.01 Tenderness of anatomical snuffbox M79.643
--- OUTSIDE RECORDS SUMMARY | 2024-07-25 13:29 | XMS_ITS | Encounter Summary ---
Author Organization [facility] Address [address] [facility] 7t [place] [address] Care Team Providers Care Archery Equipment Repairer Name Role Phone Svetlana Sloan Primary Care Provider [phone] Reason for Visit * Reason Onset Date Comments Results 11/27/2022 Encounter Details Date Type Department Care Team ([facility] st Contact Info) Description 11/27/[address] [facility] MEDICINE [address] [place], [place] [phone] Svetlana Sloan ANP [address] [place], [place] [phone] Results Social History Tobacco Use Types Packs/Day [...] does not use mychart and patient speaks cuban. * Telephone Encounter - Ana May - 01/26/2023 3:47 PM EDT Tc from pt calling in regards to message above. Please contact pt at [phone] (Macanese) * Telephone Encounter - Ashley Vera - 01/02/2023 12:54 PM EDT Tc from patient re calling in regards to renal US results done in [facility] [place]. * Telephone Encounter - Holly Schilling - 12/28/2022 8:35 AM EDT Tc from patient re calling in regards to renal US results done in [facility] in [place]. Patient doesn't recall on what date. Patient speaks cuban. * Telephone Encounter - Ana May - 11/27/2022 10:39 AM EDT Tc from pt requesting results for renal US. States she has not heard anything. Please contact pt at [phone] (Macanese) documented in this encounter Plan of Treatment Upcoming Encounters Date Type Department Care Team (Late st Contact Info) Description 09/22/2024 2:30 PM EDT Office Visit [facility] OPTOMETRY [address] [place], [place] [phone] Lakisha Beasley, OD [address] [place] [address] documented as of this encounter Visit Diagnoses Not on filedocumented in this encounter Care Teams Archery Equipment Repairer Relationship Specialty Start Date End Date Svetlana Sloan ANP [address] [place] [address] PCP - General Family Medicine 11/22/20 documented as of this encounter
--- OUTSIDE RECORDS SUMMARY | 2024-07-25 13:29 | XMS_ITS | Encounter Summary ---
Author Organization [employer] Address [address] [facility] 7t [place] [address] Care Team Providers Care Commission Sales Associate Name Role Phone Svetlana Sloan Primary Care Provider [phone] Reason for Visit * Reason Comments Med Refill Encounter Details Date Type Department Care Team (Late st Contact Info) Description 05/10/2023 Refill [facility] WALK-IN CENTER [address] [place] [address] Shona Yousif FNP Social History Tobacco Use [...] 2:30 PM EDT Office Visit [facility] OPTOMETRY [address] [place] [address] Lakisha Beasley, OD [address] [place] [address] documented as of this encounter Visit Diagnoses Not on filedocumented in this encounter Care Teams Commission Sales Associate Relationship Specialty Start Date End Date Svetlana Sloan ANP [address] [place], [place] [phone] PCP - General Family Medicine 11/22/20 documented as of this encounter
--- OUTSIDE RECORDS SUMMARY | 2024-07-25 13:29 | XMS_ITS | Encounter Summary ---
Author Organization [employer] [facility] Address [address] [facility] 7t [place] [address] Care Team Providers Care Design Teacher Name Role Phone Svetlana Sloan Primary Care Provider [phone] Reason for Visit * Reason Onset Date Comments Pt-1 06/21/2023 Encounter Details Date Type Department Care Team (Late st Contact Info) Description 06/21/2023 Telephone [facility] MEDICINE [address] [place], [place] [phone] Svetlana Sloan ANP [address] [place], [place] [phone] Pt-1 Social History Tobacco Use Types Packs/Day [...] Y/N: Yes Provider name or facility name: [facility] Facility Address: [address] [place] [address] Escort needed: Y/N: Yes Do you have a wheelchair: Y/N: No If yes- Manual or electric: N/A Visits: twice a week documented in this encounter Plan of Treatment Upcoming Encounters Date Type Department Care Team (Late st Contact Info) Description 09/22/2024 2:30 PM EDT Office Visit [facility] OPTOMETRY [address] [place] [address] Ramos, Lakisha, OD [address] [place] [address] documented as of this encounter Visit Diagnoses Not on filedocumented in this encounter Care Teams Design Teacher Relationship Specialty Start Date End Date Svetlana Sloan ANP [address] [place] [address] PCP - General Family Medicine 11/22/20 documented as of this encounter
--- OUTSIDE RECORDS SUMMARY | 2024-07-25 13:29 | XMS_ITS | Clinical Summary ---
Author Organization [employer] Address [address] [facility] 7t [place] [address] Care Team Providers Care Mechanical Engineering Manager Name Role Phone Svetlana Sloan Primary Care Provider [phone] Allergies Active Allergy Reactions Criticality Noted Date [...] Type Department Care Team Description 06/18/2024 Telephone [facility] MEDICINE [address] [place], [place] [phone] Svetlana Sloan ANP PT-1 06/13/2024 Population Health Risk Score [facility] () Department [address] [phone] Provider, Population Health Generic from [...] Description 09/22/2024 2:30 PM EDT Office Visit [facility] OPTOMETRY [address] [place] [address] Ramos, Lakisha, OD [address] [place] [address] Health Maintenance Due Date Last Done Comments [...] 9:42 AM EST) Triglycerides 214(H) <150 mg/dL [facility] Comment:Desirable Triglyceri de: less than 150 mg/dLBorderline High Triglyceride 150-199 mg/dLHigh Triglyceride: 200-499 mg/dLVery High Triglyceride: greater than or equal to 5OO mg/dL Cholesterol 145 <200 mg/dL [facility] Comment:Desirable Cholestero l: less than 200 mg/dLBorderline High Cholesterol: 200-239 mg/dLHigh Cholesterol: greater than 239 mg/dL LDL Cholesterol Calculated 71 <100 mg/dL [facility] Comment:Desirable LDL: less than 100 mg/dLNear Optimal/Above Optimal LDL: 110- 129 mg/dLBorderline High LDL: 130-159 mg/dLHigh LDL: 160-189 mg/dLVery High LDL: greater than or equal to 190 mg/dL HDL Cholesterol 32(L) >40 mg/dL [facility] Comment:Desirable HDL: great er than 40 mg/dL Note: This HDL assay may give artificially low results in patients with liver disease. Blood Venous blood specimen / Unknown 03/28/2023 9:42 AM EST 03/28/2023 11:31 AM EST us Svetlana Sloan ANP LAB BLOOD ORDERABLES Final Resul t [facility] [address] [place] [address] [phone] * HEPATITIS C AB W/REFL TO HCV RNA, QN, PCR (11/30/2021 11:35 AM EDT) HEPATITIS C ANTIBODY NON-REACT MALIA NON-REACT MALIA [facility] INDEX 0.19 <1.00 [facility] Comment: ?? HCV antibody was non-reactive. There is no laboratory ?? evidence of HCV infection. ?? In most cases, no further action is required. However, if recent HCV exposure is suspected, a test for HCV RNA (test code 17203) is suggested. ?? For additional information please refer to http://HeySpace.[employer]/faq/IJY35z0 (This link is being provided for informational/ educational purposes only.) ?? 11/30/2021 11:3 5 AM EDT Reema Greer MD HISTORICAL/NON ORDERA BLE LABS Final Result [facility] [address] * HIV 1/2 ANTIGEN/ANTIBODY,FOURTH GENERATION W/RFL (11/30/2021 11:35 AM EDT) HIV-1/2 ANTIGEN AND ANTIBODIES, 4TH GENERATION W/ REFLEX NON-REACT MALIA NON-REACT MALIA [facility] Comment: HIV-1 antigen and HIV-1/HIV-2 [...] ? For additional information please refer to http://HeySpace.[employer]/faq/ORX878 (This link is being provided for informational/ educational purposes only.) ? The performance of this assay has not been clinically validated in patients less than 2 years old. ?? HIV-1/2 ANTIGEN AND ANTIBODIES, 4TH GENERATION W/ REFLEX NON-REACT MALIA NON-REACT MALIA [facility] Comment: HIV-1 antigen and HIV-1/HIV-2 [...] ? For additional information please refer to http://[employer]/faq/USP416 (This link is being provided for informational/ educational purposes only.) ? The performance of this assay has not been clinically validated in patients less than 2 years old. ?? 11/30/2021 11:3 5 AM EDT Reema Greer MD LAB BLOOD ORDERABLES Final Result [facility] [address] * THINPREP TIS PAP (02/25/2020 12:00 AM EST) Clinical Information: None given [facility] COMMENT SEE COMMENT [facility] [...] with computer assisted technology. [facility] Supervisor Functional Testing : SEE COMMENT [facility] Comment: SL, CT(ASCP) CT screening location: [address] ??[id number] Interpretation/R esult: Negative for intraepithelial lesion or malignancy. [facility] LMP: NONE GIVEN [facility] Prev. BX: NONE GIVEN [facility] Prev. PAP: NONE GIVEN [facility] SOURCE: None given [facility] Statement Of Adequacy: SEE COMMENT [facility] Comment: Satisfactory for evaluation. Endocervical/transformation zone component present. Partially obscuring inflammation Age and/or menstrual status not provided Partially obscuring blood 02/25/2020 us Historical Provider LAB PATHOLOGY ORDERABLES Final Result [facility] [address] from Last 3 Months or Most Recently Relevant to Health Maintenance [place] [address] [place] [address] C3 [facility] MEDICAID STAND ADULT Care Teams Mechanical Engineering Manager Relationship Specialty Start Date End Date Svetlana Sloan ANP [address] [place] [address] PCP - General Family Medicine 11/22/20
--- OUTSIDE RECORDS SUMMARY | 2024-07-25 13:29 | XMS_ITS | Encounter Summary ---
Author Organization [facility] Address [address] [facility] 7t [place] [address] Care Team Providers Care Home Care Provider Name Role Phone Svetlana Sloan Primary Care Provider [phone] Encounter Details Date Type Department Care Team (Latest Contact Info) Description 04/22/[address] [facility] CONVERSIONS Dental, Provider, DDS Social History [...] Description 09/22/2024 2:30 PM EDT Office Visit [facility] OPTOMETRY [address] [place] [address] Ramos, Lakisha, OD [address] [place] [address] documented as of this encounter Visit Diagnoses Not on filedocumented in this encounter Care Teams Home Care Provider Relationship Specialty Start Date End Date Svetlana Sloan ANP [address] [place] [address] PCP - General Family Medicine 11/22/20 documented as of this encounter
--- OUTSIDE RECORDS SUMMARY | 2024-07-25 13:29 | XMS_ITS | Encounter Summary ---
Author Organization [facility] Address [address] [facility] 7t [place] [address] Care Team Providers Care Python Django Developer Name Role Phone Svetlana Sloan Primary Care Provider [phone] Encounter Details Date Type Department Care Team (Late st Contact Info) Description 06/05/2022 Orders Only [facility] MEDICINE [address] [place] [address] Patricia Wagoner LPN Social History Tobacco Use [...] [facility] [address] [place] [address] Lakisha Beasley, OD [address] [place] [address] documented as of this encounter Visit Diagnoses Not on filedocumented in this encounter Care Teams Python Django Developer Relationship Specialty Start Date End Date Svetlana Sloan ANP [address] [place] [address] PCP - General Family Medicine 11/22/20 documented as of this encounter
--- OUTSIDE RECORDS SUMMARY | 2024-07-25 13:29 | XMS_ITS | Encounter Summary ---
Author Organization [facility] Address [address] [facility] 7t [place] [address] Care Team Providers Care Material Cutter Name Role Phone Svetlana Sloan Primary Care Provider [phone] Encounter Details Date Type Department Care Team (Late st Contact Info) Description 03/16/2022 Orders Only [facility] CHC MED & PEDS [address] [place], [place] [phone] Svetlana Sloan ANP [address] [place] [address] Wheezing (Primary Dx) Social History Tobacco Use [...] PM EDT Office Visit [facility] OPTOMETRY [address] [place] [address] Ramos, Lakisha, OD [address] [place] [address] documented as of this encounter Visit Diagnoses Diagnosis Wheezing- Primary documented in this encounter Care Teams Material Cutter Relationship Specialty Start Date End Date Svetlana Sloan ANP [address] [place] [address] PCP - General Family Medicine 11/22/20 documented as of this encounter
--- OUTSIDE RECORDS SUMMARY | 2024-07-25 13:29 | XMS_ITS | Encounter Summary ---
Author Organization [employer] Address 75 [facility] 7t [place] [address] Care Team Providers Care Patient Placement Coordinator Name Role Phone Svetlana Sloan Primary Care Provider [phone] Reason for Visit * Reason Comments Med Refill Encounter Details Date Type Department Care Team (Late st Contact Info) Description 01/10/2024 Refill [facility] MEDICINE [address] [place], [place] [phone] Svetlana Sloan ANP [address] [place], [place] [phone] Rash Social History Tobacco Use Types Packs/Day [...] Office Visit [facility] OPTOMETRY [address] [place] [address] Lakisha Beasley, OD [address] [place] [address] documented as of this encounter Visit Diagnoses Diagnosis Rash Rash and other nonspecific skin eruption documented in this encounter Additional Health Concerns Assessment Noted Time PHQ-9 Depression Total Score: 0 09/04/19 24 12:17 PM EDT documented as of this encounter Care Teams Patient Placement Coordinator Relationship Specialty Start Date End Date Svetlana Sloan ANP [address] [place] [address] PCP - General Family Medicine 11/22/20 documented as of this encounter
--- OUTSIDE RECORDS SUMMARY | 2024-07-25 13:29 | XMS_ITS | Encounter Summary ---
Author Organization [employer] [facility] Address [address] 7[address] [place] [address] Care Team Providers Care Finance Advisor Name Role Phone Svetlana Sloan Primary Care Provider [phone] Reason for Visit * Reason Onset Date Comments Lab Orders 03/05/2023 Encounter Details Date Type Department Care Team (Late st Contact Info) Description 03/05/2023 Telephone [facility] MEDICINE [address] [place], [place] [phone] Svetlana Sloan ANP [address] [place], [place] [phone] Lab Orders Social History Tobacco Use Types [...] Description 09/22/2024 2:30 PM EDT Office Visit [facility] OPTOMETRY [address] [place] [address] Ramos, Lakisha, OD [address] [place] [address] documented as of this encounter Visit Diagnoses Not on filedocumented in this encounter Care Teams Finance Advisor Relationship Specialty Start Date End Date Svetlana Sloan ANP [address] [place] [address] PCP - General Family Medicine 11/22/20 documented as of this encounter
--- OUTSIDE RECORDS SUMMARY | 2024-07-25 13:29 | XMS_ITS | Encounter Summary ---
Author Organization [employer] [facility] Address [address] [place] [address] Care Team Providers Care Doping Supervisor Name Role Phone Svetlana Sloan Primary Care Provider [phone] Reason for Visit * Reason Onset Date Comments Nurse Triage 09/14/2023 Encounter Details Date Type Department Care Team (Late st Contact Info) Description 09/14/2023 Telephone [facility] MEDICINE [address] [place], [place] [phone] Svetlana Sloan ANP [address] [place], [place] [phone] Nurse Triage Social History Tobacco Use Types [...] EDT Triage call returned to patient with [place] Aesthetician [id number]. Patient with rash described as below the knee n left leg from ankle to calf. No known exposure to irritants. Has been using alcohol todiminish itching. No fluid filled blisters just red bumps. No fever or spreading redness. Disposition reviewed and patient in agreement with plan. Unable to come to [facility] has appt today at [facility] and will seek evaluation there at [...] Override Notes: Patient unable to come to [facility] today. Video visit offer not [...] Reason: Dark blood red spots (not pink) Hebrew Speaker (Accepted Aesthetician) documented in this encounter Plan of Treatment Upcoming Encounters Date Type Department Care Team (Late st Contact Info) Description 09/22/2024 2:30 PM EDT Office Visit [facility] OPTOMETRY [address] [place] [address] Lakisha Beasley, OD [address] [place] [address] documented as of this encounter Visit Diagnoses Not on filedocumented in this encounter Additional Health Concerns Assessment Noted Time PHQ-9 Depression Total Score: 0 09/04/19 24 12:17 PM EDT documented as of this encounter Care Teams Doping Supervisor Relationship Specialty Start Date End Date Svetlana Sloan ANP [address] [place], [place] [phone] PCP - General Family Medicine 11/22/20 documented as of this encounter
== END 2024-07-25 13:21 | disposition home or self-care (01) ==
LOC: HO.HOS 12:51
PROVIDERS: PCP Nurse Practitioner Primary Care
DX: M65.4 Radial styloid tenosynovitis [de Quervain] (principal); G56.01 Carpal tunnel syndrome, right upper limb; M79.641 Pain in right hand; M25.531 Pain in right wrist
CPT/HCPCS: 99213

== ENCOUNTER → 2024-07-25 12:53 | Outpatient (BNV) | payer MEDICAID, SELFPAY | PROVIDERS: Visit Provider Radiology Diagnostic Radiology | DX: M79.641 Pain in right hand (principal) | CPT/HCPCS: 73130 ==

== ENCOUNTER 2024-09-10 08:14 | Outpatient (AMB) | payer MEDICAID, SELFPAY ==
--- NOTE | 2024-09-10 08:19 | A.OFFVIS_ITS ---
Vital Signs 09/10/24 08:27 Height 5 ft 3 in Intake Visit Reasons: OV right hand pain, DOI Intake Note: Reema is a 39 year old right hand dominant female who presents today for a follow up visit of her right wrist pain s/p fall DOI: 07/07/24. Patient reports constant pain on the dorsal aspect of the wrist and hand. She notices that she is not getting better. Irrigationist Designer Services: Irrigationist Designer Present (Tonio ([id number])) Allergies naproxen [NAPROXEN] Allergy (Unknown, Verified 09/10/24 08:26) TACHYCARDIA HPI HPI OV right hand pain, DOI : Details: Reema is a 39 year old right hand dominant female who presents today for a follow up visit of her right wrist pain s/p fall DOI: 07/07/24. Patient reports constant pain on the dorsal aspect of the wrist and hand. The patient reports that her pain is primarily at the base of the right thumb, and also states that her left hand to started to hurt, she feels this is due to overuse of the left hand due to right hand pain. She notices that she is not getting better. [facility] Medical History (Updated 07/26/24 @ 10:58 by BOLIVAR Wolf) Left ankle sprain Abscess Morbid obesity Surgical History (Updated 01/07/24 @ 12:44 by Chiara Maloney RN) History of section History of cholecystectomy Family History Maternal Grandmother Diabetes Social History Household Members: Children Alcohol intake: never Patient Tobacco Use Status: Never used Tobacco Current occupational status: unemployed Current occupation: rt handed Review of Systems Const All systems reviewed & are unremarkable except as noted in HPI and below Physical Exam Extrem Other: Patient is alert, oriented, and in no acute distress. Neuro: Normal sensation of the tips of all digits of the right hand at this time Vascular: Cap refill brisk Pain: Diffuse tenderness to palpation about the right hand and wrist, worst in the dorsal and radial aspect Tenderness to palpation of both the right anatomical snuffbox and scaphoid tubercle Minimal tenderness to palpation of radial styloid, ulnar styloid ROM: Patient was able to make a closed fist and extend all digits of the right hand fully Wrist range of motion limited due to pain, able to flex to approximately 50 degrees past neutral and extend to approximately 30 degrees past neutral, only limitation is pain Skin: No lacerations or abrasions. Well-healed incision sites noted on the volar aspect of the right wrist and over the 1st dorsal compartment of the right wrist General: No ecchymosis, erythema, or evidence of infection. Psych: Appears grossly normal Affect normal Attitude cooperative Results Reviewed Results Reviewed: X-rays obtained in the office today and independently reviewed by me, Kamran Mane PA-C, demonstrate no fracture or acute bony abnormality of the right wrist. Assessment & Plan Assessment & Plan (1) Tenderness of anatomical snuffbox: Code(s): M79.643 - Pain in unspecified hand Category: Medical (2) De Quervain's tenosynovitis, right: Code(s): M65.4 - Radial styloid tenosynovitis [de Quervain] Category: Medical (3) Carpal tunnel syndrome of right wrist: Code(s): G56.01 - Carpal tunnel syndrome, right upper limb Category: Medical Plan 1. Right wrist pain status post fall Date of injury 07/07/2024 Patient is educated about this condition Patient is educated about the typical recovery course This time, due to the presence of snuffbox and scaphoid tubercle tenderness, patient was provided a Velcro wrist splint to wear like a cast except for bathing MRI ordered for assessment of the right scaphoid to rule out fracture Patient was amenable to this plan Follow-up after MRI for results review and discussion of further treatment options if indicated Orders: Orders XR wrist RT w scaphoid Today M79.641 - Pain in right hand MR wrist LT wo con Today M79.643 - Pain in unspecified hand Coding Level of Care Code Est Pt Level 3 (59967) Diagnoses Tenderness of anatomical snuffbox M79.643 De Quervain's tenosynovitis, right M65.4 Carpal tunnel syndrome of right wrist G56.01
--- OUTSIDE RECORDS SUMMARY | 2024-09-10 08:22 | XMS_ITS | Encounter Summary ---
Author Organization [employer] Address [address] [facility] [address] [place] [address] Care Team Providers Care Position Classification Manager Name Role Phone Svetlana Sloan Primary Care Provider [phone] Reason for Visit * Reason Onset Date Comments Lab Orders 03/05/2023 Encounter Details Date Type Department Care Team (Late st Contact Info) Description 03/05/[address] [facility] MEDICINE [address] [place], [place] [phone] Svetlana Sloan ANP [address] [place], [place] [phone] Lab Orders Social History Tobacco Use Types [...] Care Team (Late st Contact Info) Description 09/12/2024 9:45 AM EDT Office Visit [facility] MEDICINE [address] [place] [address] Svetlana Sloan ANP [address] [place] [address] 09/22/2024 2:30 PM EDT Office Visit [facility] OPTOMETRY [address] [place] [address] Lakisha Beasley, BRITANY [address] [place] [address] documented as of this encounter Visit Diagnoses Not on filedocumented in this encounter Care Teams Position Classification Manager Relationship Specialty Start Date End Date Svetlana Sloan, ANP [address] [place] [address] PCP - General Family Medicine 11/22/20 documented as of this encounter
== END 2024-09-10 09:04 | disposition home or self-care (01) ==
LOC: HO.HOS 08:15
DX: M79.641 Pain in right hand (principal); M65.4 Radial styloid tenosynovitis [de Quervain]; G56.01 Carpal tunnel syndrome, right upper limb
CPT/HCPCS: 99213

== ENCOUNTER 2024-09-10 08:14 | Outpatient (REF) | payer MEDICAID, SELFPAY ==
--- NOTE | ~2024-09-10 | XR_ITS ---
EXAMINATION: XR WRIST, RIGHT CLINICAL INFORMATION: M79.641 - Pain in right hand COMPARISON: None available. TECHNIQUE: PA, lateral, spot scaphoid and oblique views of the right wrist. FINDINGS: No fracture line is visible. No degenerative changes are seen. There is no joint diastases or abnormal step-off. XR/XR wrist RT w scaphoid IMPRESSION: Unremarkable right wrist. Electronically signed by: Flavio Son MD 09/10/2024 02:07 PM EDT
== END 2024-09-10 08:15 | disposition home or self-care (01) ==
LOC: HO.HOSX 08:14
DX: M79.641 Pain in right hand (principal); M65.4 Radial styloid tenosynovitis [de Quervain]; G56.01 Carpal tunnel syndrome, right upper limb
CPT/HCPCS: 73110; 99212

== ENCOUNTER → 2024-09-10 08:38 | Outpatient (BNV) | payer MEDICAID, SELFPAY | PROVIDERS: Visit Provider Radiology Diagnostic Radiology | DX: M79.641 Pain in right hand (principal) | CPT/HCPCS: 73110 ==

== ENCOUNTER 2024-09-12 11:17 | Outpatient (REF) | payer MEDICAID, SELFPAY ==
--- OUTSIDE RECORDS SUMMARY | 2024-09-12 12:19 | XMS_ITS | Encounter Summary ---
Author Organization [employer] Address [address] [place] [address] Care Team Providers Care School Cleaner Name Role Phone Svetlana Sloan Primary Care Provider [phone] Encounter Details Date Type Department Care Team (Latest Contact Info) Description 09/12/2024 Travel Social History Tobacco Use Types Packs/Day Years [...] Date Recorded Patient Health Questionnaire-9 Score 0 09/12/2024 Patient Health Questionnaire-9 Score 0 09/12/2024 Last PHQ-9: Questionnaire Data Not on file 0 09/12/2024 Housing Stability Answer Date Recorded What is your housing situation today? I have david enrique 09/05/[address] you li ve. Do you have problems with any of the following? None of the above 09/05/2024 Food Insecurity Answer Date Recorded Within the past 12 months, y ou worried that your food would run out before you got money to buy more: Never True 09/05/2024 Within the past 12 months,th e food you bought just didn't last and you didn't have enough money to get more: Never True 08/2024 Transportation Answer Date Recorded In the past 12 months, has l ack of transportation kept you from medical appts, meetings, work or from getting things needed for daily living? No 09/05/2024 Utilities Answer Date Recorded In the past 12 months, has t he electric, gas, oil or water company threatened to shut off services in your home? No 09/05/2024 Depression Answer Date Recorded Patient Health Questionnaire-2 Score 0 09/12/2024 Internet Access Answer Date Recorded Internet Access Q1 Yes 09/05/2024 Internet Access Q2 Not on file 09/05/2024 Comments Unknown Sex and Gender Information Value Date Recorded Sex Assigned at Female 01/30/2022 10:32 AM EDT Legal Sex Female 10:32 AM EDT Gender Identity Choose not to disclose 10:32 AM EDT Sexual Orientation Choose not to disclose 2021 10:32 AM EDT documented as of this encounter Functional Status * Over the past 2 weeks, how often have you been bothered by any of the following problems? Question Answer Date of Assessment Author Patient Health Questionnaire -2 Score 0 09/12/2024 10:06 AM EDT Rai Buckley MA * Little interest or pleasure in doing things Answer Date of Assessment Author Not at all 09/12/2024 10:06 AM EDT Rai Buckley MA * Feeling down, depressed, or hopeless Answer Date of Assessment Author Not at all 09/12/2024 10:06 AM EDT Rai Buckley MA * Trouble falling or staying asleep, or sleeping too much Answer Date of Assessment Author Not at all 09/12/2024 10:06 AM EDT Rai Buckley MA * Feeling tired or having little energy Answer Date of Assessment Author Not at all 09/12/2024 10:06 AM EDT Rai Buckley MA * Poor appetite or overeating Answer Date of Assessment Author Not at all 09/12/2024 10:06 AM EDT Rai Buckley MA * Feeling bad about yourself - or that you are a failure or have let yourself or your family down Answer Date of Assessment Author Not at all 09/12/2024 10:06 AM EDT Rai Buckley MA * Trouble concentrating on things, such as reading the newspaper or watching television Answer Date of Assessment Author Not at all 09/12/2024 10:06 AM KARSTENT Rai Buckley MA * Moving or speaking so slowly that other people could have noticed? Or the opposite - being so fidgety or restless that you have been moving around a lot more than usual. Answer Date of Assessment Author Not at all 09/12/2024 10:06 AM EDT Rai Buckley MA * Thoughts that you would be better off or hurting yourself in some way Answer Date of Assessment Author Not at all 09/12/2024 10:06 AM Rai Dumas MA * Patient Health Questionnaire-9 Score Answer Date of Assessment Author 0 09/12/2024 10:06 AM EDT Rai Buckley MA * Over the last 2 weeks, how often have you been bothered by any of the following problems? Question Answer Date of Assessment Author Feeling nervous, anxious, or on edge 0 09/12/2024 10:06 AM EDT Rai Buckley MA Not being able to stop or co ntrol worrying 0 09/12/2024 10:06 AM KARSTENT Rai Buckley MA Worrying too much about diff erent things 0 09/12/2024 10:06 AM KARSTENT Rai Buckley MA Trouble relaxing 0 09/12/2024 10:06 AM KARSTENT Rai Buckley MA Being so restless that it is hard to sit still 0 09/12/2024 10:06 AM EDT Rai Buckley MA Becoming easily annoyed or irritable 0 09/12/2024 10:06 AM EDT Rai Buckley MA Feeling afraid as if somethi ng awful might happen 0 09/12/2024 10:06 AM EDT Rai Buckley MA JEWEL-7 Total Score 0 09/12/2024 10:06 AM EDT Rai Buckley MA documented as of this encounter Plan of Treatment Upcoming Encounters Date Type Department Care Team (Late st Contact Info) Description 09/22/2024 2:30 PM EDT Office Visit [facility] OPTOMETRY [address] [place] [address] Lakisha Beasley, OD [address] [place] [address] 10/28/2024 9:30 AM EDT Procedure Visit [facility] MEDICINE [address] [place] [address] Connie Hess CNM [address] [place] [address] documented as of this encounter Visit Diagnoses Not on filedocumented in this encounter Additional Health Concerns Assessment Noted Time PHQ-9 Depression Total Score: 0 09/13/19 25 10:06 AM EDT documented as of this encounter Care Teams School Cleaner Relationship Specialty Start Date End Date Svetlana Sloan ANP [address] [place] [address] PCP - General Family Medicine 11/22/20 documented as of this encounter
[2024-09-12 13:02] LABS: MANUAL DIFF FLAG NO
[2024-09-12 13:18] LABS: Basophils Percent Auto 0.2 % (0-2); Eosinophils Absolute Auto 0.1 X10*3/uL (0.0-0.4); Eosinophils Percent Auto 1.1 % (0-4); Hematocrit 38.6 % (37.0-47.0); Hemoglobin 12.4 g/dl (12.0-16.0); Imm Gran Abs Auto 0.04 X10*3/uL (0.00-0.03); Imm Gran Pct Auto 0.3 % (0.0-0.4); Lymphocytes Absolute Auto 2.7 X10*3/uL (1.2-4.9); Lymphocytes Percent Auto 22.1 % (20-40); Mean Corpuscular HGB Conc 32.1 g/dl (31.0-35.0); Mean Corpuscular Hemoglobin 23.8 pg (27.0-33.0); Mean Corpuscular Volume 74.2 fL (80.0-98.0); Mean Platelet Volume 9.4 fL (9.4-12.3); Monocytes Absolute Auto 0.6 X10*3/uL (0.1-1.2); Monocytes Percent Auto 4.5 % (2-11); Neutrophils Absolute Auto 8.8 x10*3/uL (2.0-8.3); Neutrophils Percent Auto 71.8 % (45-73); Platelet Count 314 X10*3/uL (160-400); Red Cell Distribution Width 17.2 % (11.0-16.0); White Blood Count 12.3 X10*3/uL (4.8-10.8)
[2024-09-12 13:31] LABS: Estimated Average Glucose 128 mg/dL; Hemoglobin A1c % 6.1 % (<6.0)
[2024-09-12 13:45] LABS: Cholesterol 133 mg/dL (<200); HDL Cholesterol 35 mg/dL (>40); Iron 30 mcg/dL (30-160); LDL Cholesterol Calculated 76 mg/dL (<100); Percent Iron Saturation 9 % (15-50); TSH reflex Free T4 2.34 uIU/mL (0.32-4.0); Total Iron Binding Capacity 320 mcg/dL (228-428); Triglycerides 112 mg/dL (<150); Unsaturated Iron Binding 290 ug/dL
== END 2024-09-12 11:18 | disposition home or self-care (01) ==
LOC: HO.HHCL 11:17
PROVIDERS: Visit Provider Nurse Practitioner Primary Care
DX: R73.03 Prediabetes (principal); D64.9 Anemia, unspecified; R42 Dizziness and giddiness; E03.9 Hypothyroidism, unspecified; E78.1 Pure hyperglyceridemia
CPT/HCPCS: 36415; 80061; 83036; 83540; 84443; 85025

== ENCOUNTER 2024-10-25 14:14 | Outpatient (REF) | payer MEDICAID, SELFPAY ==
--- NOTE | ~2024-10-25 | MR_ITS ---
CLINICAL HISTORY: M79.643 - Pain in unspecified hand MR of the right wrist without contrast. No prior MR. Findings: There is a carpal boss at the dorsal aspect of the base of the 2nd metatarsal. There is prominent cystic change with mild marrow edema along the pseudoarthrosis. This may be symptomatic. There is mild ill-defined marrow edema in the palmar aspect of the hamate of uncertain etiology. No other suspicious bony abnormalities are seen. The scapholunate interval is intact with no definite tear of the scapholunate ligament. There is a multi-septated ganglion anterior to the radioscaphoid articulation measuring a maximum 10 mm. There is moderate 1st extensor compartment tendinopathy with mild tenosynovitis. There is mild 2nd extensor compartment tenosynovitis. There is mild extensor carpi ulnaris tendinopathy with a small longitudinal split of the tendon. The flexor tendons are intact. The median nerve is unremarkable. There are several small ganglia along the deep surface of the carpal tunnel. There is a possible small central perforation of the triangular fibrocartilage. Impression: Carpal boss with prominent associated intraosseous cystic change and mild marrow edema. This may be symptomatic. Mild ill-defined marrow edema in the hamate is of uncertain etiology and significance. Ganglion anterior to the radioscaphoid articulation. Mild 1st and 2nd extensor compartment tenosynovitis with moderate 1st extensor compartment tendinopathy. Mild extensor carpi ulnaris tendinopathy with a small longitudinal split. Small ganglia along the portion of the carpal tunnel. Possible small central perforation of the triangular fibrocartilage. This document has been electronically signed by: Dante Rae MD on 10/29/2024 18:32:22
== END 2024-10-25 14:15 | disposition home or self-care (01) ==
LOC: HO.MRI 14:14
PROVIDERS: PCP Nurse Practitioner Primary Care
DX: M79.641 Pain in right hand (principal)
CPT/HCPCS: 73221

== ENCOUNTER → 2024-10-25 14:30 | Outpatient (BNV) | payer MEDICAID, SELFPAY | PROVIDERS: PCP Nurse Practitioner Primary Care; Visit Provider Radiology Diagnostic Radiology | DX: M67.431 Ganglion, right wrist (principal) | CPT/HCPCS: 73221 ==

== ENCOUNTER 2024-12-03 09:32 | Outpatient (AMB) | payer MEDICAID, SELFPAY ==
--- NOTE | 2024-12-03 09:38 | A.OFFVIS_ITS ---
Intake Visit Reasons: OV-MR wrist RT review Intake Note: Reema is a 39 year old right hand dominant female who presents today for a Right Wrist Pain follow up and MRI review status post fall, DOI: 07/07/24. Patient reports having continued pain with numbness and tingling in the right wrist and hand. She expresses the velcro wrist brace she has does not offer relief. She states holding on to things has become very difficult due to her pain.Expresses no strength and an increase in pain when she tried to hold things such as eating utensils. Impression: Carpal boss with prominent associated intraosseous cystic change and mild marrow edema. This may be symptomatic. Mild ill-defined marrow edema in the hamate is of uncertain etiology and significance. Ganglion anterior to the radioscaphoid articulation. Mild 1st and 2nd extensor compartment tenosynovitis with moderate 1st extensor compartment tendinopathy. Mild extensor carpi ulnaris tendinopathy with a small longitudinal split. Small ganglia along the portion of the carpal tunnel. Possible small central perforation of the triangular fibrocartilage. Director Digital Required: Yes Director Digital Language: Hotel Guest Service Agent Services: Director Digital Present Director Digital Name: Soco GARRISON/AI Allergies naproxen (NAPROXEN) Allergy (Unknown, Verified 12/03/24 09:43) TACHYCARDIA HPI HPI OV-MR wrist RT review: Details: Reema is a 39 year old right hand dominant female who presents today for a Right Wrist Pain follow up and MRI review status post fall, DOI: 07/07/24. Patient reports having continued pain with numbness and tingling in the right wrist and hand. She expresses the velcro wrist brace she has does not offer relief. She states holding on to things has become very difficult due to her pain.Expresses no strength and an increase in pain when she tried to hold things such as eating utensils. [facility] Medical History (Updated 12/03/24 @ 09:58 by BOLIVAR Wolf) Left ankle sprain Abscess Morbid obesity Surgical History (Updated 01/07/24 @ 12:44 by Chiara Maloney RN) History of section History of cholecystectomy Family History Maternal Grandmother Diabetes Social History Household Members: Children Alcohol intake: never Patient Tobacco Use Status: Never used Tobacco Current occupational status: unemployed Current occupation: rt handed Review of Systems Const All systems reviewed & are unremarkable except as noted in HPI and below Physical Exam Extrem Other: Patient is alert, oriented, and in no acute distress. Neuro: Normal sensation of the tips of all digits of the right hand at this time Vascular: Cap refill brisk Pain: Diffuse tenderness to palpation about the right hand and wrist, worst in the dorsal and radial aspect No further Tenderness to palpation of both the right anatomical snuffbox and scaphoid tubercle Minimal tenderness to palpation of radial styloid, ulnar styloid ROM: Patient was able to make a closed fist and extend all digits of the right hand fully Wrist range of motion limited due to pain, able to flex to approximately 50 degrees past neutral and extend to approximately 30 degrees past neutral, only limitation is pain Pain with passive flexion and resisted extension of the right wrist, particularly in the dorsal and radial aspect Skin: No lacerations or abrasions. Well-healed incision sites noted on the volar aspect of the right wrist and over the 1st dorsal compartment of the right wrist General: No ecchymosis, erythema, or evidence of infection. Psych: Appears grossly normal Affect normal Attitude cooperative Results Reviewed Results Reviewed: Impression: Carpal boss with prominent associated intraosseous cystic change and mild marrow edema. This may be symptomatic. Mild ill-defined marrow edema in the hamate is of uncertain etiology and significance. Ganglion anterior to the radioscaphoid articulation. Mild 1st and 2nd extensor compartment tenosynovitis with moderate 1st extensor compartment tendinopathy. Mild extensor carpi ulnaris tendinopathy with a small longitudinal split. Small ganglia along the portion of the carpal tunnel. Possible small central perforation of the triangular fibrocartilage. This document has been electronically signed by: Dante Rae MD Assessment & Plan Assessment & Plan (1) Extensor carpi radialis brevis tenosynovitis: Code(s): M65.939 - Unspecified synovitis and tenosynovitis, unspecified forearm Category: Medical (2) Extensor carpi ulnaris tendinitis: Code(s): M77.8 - Other enthesopathies, not elsewhere classified Category: Medical (3) Tenderness of anatomical snuffbox: Code(s): M79.643 - Pain in unspecified hand Category: Medical (4) De Quervain's tenosynovitis, right: Code(s): M65.4 - Radial styloid tenosynovitis [de Quervain] Category: Medical (5) Carpal tunnel syndrome of right wrist: Code(s): G56.01 - Carpal tunnel syndrome, right upper limb Category: Medical Plan 1. Right wrist pain status post fall Date of injury 07/07/2024 Patient is educated about this condition Patient is educated about the typical recovery course MRI negative for any acute scaphoid fracture or other bony abnormality Patient does appear to have diffuse extensor tenosynovitis, noninfectious in nature MRI does reveal longitudinal split in the ECU tendon, however patient does not have a lot of pain in his area Patient referred to occupational therapy for range of motion and strengthening of the right wrist in the setting of extensor tendinitis Patient will also follow-up with Dr. Springer, next available appointment, for discussion of injection into the ECR tendons Patient understands this and is amenable to this plan Orders: Orders OT Evaluation and Treatment Today M65.939 - Unspecified synovitis and tenosynovitis, unspecified forearm, M77.8 - Other enthesopathies, not elsewhere classified Coding Level of Care Code Est Pt Level 3 (53870) Diagnoses Extensor carpi radialis brevis tenosynovitis M65.939 Extensor carpi ulnaris tendinitis M77.8 Tenderness of anatomical snuffbox M79.643 De Quervain's tenosynovitis, right M65.4 Carpal tunnel syndrome of right wrist G56.01
== END 2024-12-03 10:02 | disposition home or self-care (01) ==
LOC: HO.HOS 09:33
PROVIDERS: PCP Nurse Practitioner Primary Care
DX: M65.939 Unspecified synovitis and tenosynovitis, unspecified forearm (principal); M77.8 Other enthesopathies, not elsewhere classified; M79.643 Pain in unspecified hand; M65.4 Radial styloid tenosynovitis [de Quervain]; G56.01 Carpal tunnel syndrome, right upper limb
CPT/HCPCS: 99213

== ENCOUNTER → 2024-12-03 09:32 | Outpatient (BNVA) | payer MEDICAID, SELFPAY | PROVIDERS: PCP Nurse Practitioner Primary Care | DX: M79.641 Pain in right hand (principal); M65.931 Unspecified synovitis and tenosynovitis, right forearm; M77.8 Other enthesopathies, not elsewhere classified; M65.4 Radial styloid tenosynovitis [de Quervain]; G56.01 Carpal tunnel syndrome, right upper limb; R20.0 Anesthesia of skin; R20.2 Paresthesia of skin | CPT/HCPCS: 99212 ==

== ENCOUNTER 2024-12-04 10:31 | Outpatient (REF) | payer MEDICAID, SELFPAY ==
--- NOTE | 2024-12-04 | PFT_ITS ---
Flows: FEV1: 109 % of predicted at 2.88 L FVC: 101 % of predicted at 3.59 L FEV1/FVC: 80 % Bronchodilator response: Present in small to medium airways only Volumes: Total lung capacity: 97 % of predicted at 4.91 L Residual volume: 102 % of predicted at 1.26 L Slow vital capacity: 95 % of predicted at 3.65 L Expiratory reserve volume: 33 % of predicted at 0.40 L Diffusion capacity: Normal Impression: No obstructive or restrictive ventilatory defects. Bronchodilator response is present in small to medium airways only. Decreased expiratory reserve volume suggests extrathoracic restriction likely secondary to abdominal obesity. MTDD
[2024-12-04 11:17] VITALS: PULSE 68; O2SAT 99
--- OUTSIDE RECORDS SUMMARY | 2024-12-04 11:55 | XMS_ITS | Encounter Summary ---
Author Organization [employer] [facility] Address [address] [facility] 7[address] [place] [address] Care Team Providers Care Polish Compounder Name Role Phone Svetlana Sloan Primary Care Provider [phone] Reason for Visit * Reason Comments Med Refill Encounter Details Date Type Department Care Team ([facility] st Contact Info) Description 01/10/2024 Refill [facility] [address] [place], [place] [phone] Svetlana Sloan ANP [address] [place], [place] [phone] Rash Social History Tobacco Use Types Packs/Day [...] as of this encounter Plan of Treatment Not on file documented as of this encounter Visit Diagnoses Diagnosis Rash Rash and other nonspecific skin eruption documented in this encounter Additional Health Concerns Assessment Noted Time PHQ-9 Depression Total Score: 0 09/04/19 24 12:17 PM EDT documented as of this encounter Care Teams Polish Compounder Relationship Specialty Start Date End Date Svetlana Sloan ANP [address] [place] [address] PCP - General Family Medicine 11/22/20 documented as of this encounter
--- OUTSIDE RECORDS SUMMARY | 2024-12-04 11:55 | XMS_ITS | Encounter Summary ---
Author Organization [facility] Address [address] [place] [address] Care Team Providers Care Farrowing Worker Name Role Phone Svetlana Sloan Primary Care Provider [phone] Reason for Visit * Reason Onset Date Comments Lab Orders 03/05/2023 Encounter Details Date Type Department Care Team ([facility] st Contact Info) Description 03/05/2023 Telephone [facility] [address] [place], [place] [phone] Svetlana Sloan ANP 230 [place], [place] [phone] Lab Orders Social History Tobacco Use Types [...] documented in this encounter Plan of Treatment Not on file documented as of this encounter Visit Diagnoses Not on filedocumented in this encounter Care Teams Farrowing Worker Relationship Specialty Start Date End Date Svetlana Sloan ANP [address] [place] [id number] PCP - General Family Medicine 11/22/20 documented as of this encounter
--- OUTSIDE RECORDS SUMMARY | 2024-12-04 11:55 | XMS_ITS | Encounter Summary ---
Author Organization [employer] [facility] Address [address] [facility] 7[address] [place] [address] Care Team Providers Care Cardiology Physician Assistant Name Role Phone Svetlana Sloan Primary Care Provider [phone] Encounter Details Date Type Department Care Team (Late st Contact Info) Description 06/05/2022 Orders Only [facility] MED[facility]INE [address] [place] [address] Patricia Wagoner LPN Social History Tobacco Use [...] on filedocumented in this encounter Care Teams Cardiology Physician Assistant Relationship Specialty Start Date End Date Svetlana Sloan ANP [address] [place] [address] PCP - General Family Medicine 11/22/20 documented as of this encounter
--- OUTSIDE RECORDS SUMMARY | 2024-12-04 11:55 | XMS_ITS | Encounter Summary ---
Author Organization [employer] [facility] Address [address] [facility] 7t [place] [address] Care Team Providers Care Desk Sergeant Name Role Phone Svetlana Sloan Primary Care Provider [phone] Reason for Visit * Reason Onset Date Comments Results 11/27/2022 Encounter Details Date Type Department Care Team ([facility] st Contact Info) Description 11/27/2022 Telephone [facility] MEDICINE [address] [place], [place] [phone] Svetlana Sloan ANP [address] [place], [place] [phone] Results Social History Tobacco Use Types Packs/Day [...] does not use mychart and patient speaks portuguese. * Telephone Encounter - Ana May - 01/26/2023 3:47 PM EDT Tc from pt calling in regards to message above. Please contact pt at [phone] (Namibian) * Telephone Encounter - Ashley Vera - 01/02/2023 12:54 PM EDT Tc from patient re calling in regards to [place] [facility] [place] * Telephone Encounter - Holly Schilling - 12/28/2022 8:35 AM EDT Tc from patient re calling in regards to renal US [place] [facility] [place] Patient doesn't recall on what date. Patient speaks portuguese. * Telephone Encounter - Ana May - 11/27/2022 10:39 AM EDT Tc from pt requesting results for renal US. States she has not heard anything. Please contact pt at [phone] (Namibian) documented in this encounter Plan of Treatment Not on file documented as of this encounter Visit Diagnoses Not on filedocumented in this encounter Care Teams Desk Sergeant Relationship Specialty Start Date End Date Svetlana Sloan ANP [address] [place] [id number] PCP - General Family Medicine 11/22/20 documented as of this encounter
--- OUTSIDE RECORDS SUMMARY | 2024-12-04 11:55 | XMS_ITS | Encounter Summary ---
Author Organization [employer] [facility] Address [address] 7[address] [place] [address] Care Team Providers Care Fish Protector Name Role Phone Svetlana Sloan Primary Care Provider [phone] Encounter Details Date Type Department Care Team (Late st Contact Info) Description 03/16/2022 Orders Only [facility] [address] [place] [address] Svetlana Sloan ANP [address] [place], [place] [phone] Wheezing (Primary Dx) Social History Tobacco Use [...] Primary documented in this encounter Care Teams Fish Protector Relationship Specialty Start Date End Date Svetlana Sloan ANP [address] [place], [place] [phone] PCP - General Family Medicine 11/22/20 documented as of this encounter
--- OUTSIDE RECORDS SUMMARY | 2024-12-04 11:55 | XMS_ITS | Encounter Summary ---
Author Organization [employer] [facility] Address [address] [facility] 7t [place] [address] Care Team Providers Care Online Trader Name Role Phone Svetlana Sloan Primary Care Provider [phone] Encounter Details Date Type Department Care Team (Latest Contact Info) Description 04/22/2021 Abstract [facility] CONVERSIONS Dental, Provider, DDS Social History Tobacco [...] on filedocumented in this encounter Care Teams Online Trader Relationship Specialty Start Date End Date Svetlana Sloan ANP [address] [place] [address] PCP - General Family Medicine 11/22/20 documented as of this encounter
--- OUTSIDE RECORDS SUMMARY | 2024-12-04 11:55 | XMS_ITS | Encounter Summary ---
Author Organization [employer] [facility] Address [address] [place] [address] Care Team Providers Care Director Of Primary Name Role Phone Luther Svetlana EASTON Primary Care Provider [phone] Reason for Visit * Reason Comments Med Refill Encounter Details Date Type Department Care Team (Late st Contact Info) Description 05/10/2023 Refill [facility] [address] [place] [address] Shona Yousif FNP Social History Tobacco Use Types Packs/Day Years Used Date Smoking Tobacco: Former Cigarettes PHQ-2 Answer Date Recorded Patient Health Questionnaire-2 Score 0 08/08/2022 Housing Stability Answer Date Recorded What is your housing situation today? I have davideulalio enrique 01/31/[address] you [...] on filedocumented in this encounter Care Teams Director Of Primary Relationship Specialty Start Date End Date Svetlana Sloan ANP [address] [place] [id number] PCP - General Family Medicine 11/22/20 documented as of this encounter
--- OUTSIDE RECORDS SUMMARY | 2024-12-04 11:55 | XMS_ITS | Encounter Summary ---
Author Organization [employer] [facility] Address [address] [place] [address] Care Team Providers Care Director Of Plant Operations Name Role Phone Svetlana Sloan Primary Care Provider Reason for Visit * Reason Onset Date Comments Nurse Triage 09/14/2023 Encounter Details Date Type Department Care Team ([facility] st Contact Info) Description 09/14/2023 Telephone [facility] [address] [place], [place] [phone] Svetlana Sloan ANP 230 [place], [place] [phone] Nurse Triage Social History Tobacco Use Types [...] EDT Triage call returned to patient with [place] [address] Justice [id number]. Patient with rash described as below the knee n left leg from ankle to calf. No known exposure to irritants. Has been using alcohol todiminish itching. No fluid filled blisters just red bumps. No fever or spreading redness. Disposition reviewed and patient in agreement with plan. Unable to come to [facility] has appt today at [facility] and will seek evaluation there at [...] Override Notes: Patient unable to come to [facility] today. Video visit offer not [...] Reason: Dark blood red spots (not pink) Slovak Speaker (Accepted Supreme Court Justice) documented in this encounter Plan of Treatment Not on file documented as of this encounter Visit Diagnoses Not on filedocumented in this encounter Additional Health Concerns Assessment Noted Time PHQ-9 Depression Total Score: 0 09/04/19 24 12:17 PM EDT documented as of this encounter Care Teams Director Of Plant Operations Relationship Specialty Start Date End Date Svetlana Sloan ANP [address] [place] [id number] PCP - General Family Medicine 11/22/20 documented as of this encounter
--- OUTSIDE RECORDS SUMMARY | 2024-12-04 11:55 | XMS_ITS | Clinical Summary ---
Author Organization [employer] Address [address] [place] [address] Care Team Providers Care Strategic Business Development Name Role Phone Meenu Nieves JEMMA Primary Care Provider [phone] Allergies Active Allergy Reactions Criticality Noted Date Comments Naproxen Palpitations Low 03/23/2020 Medications lamoTRIgine (LaMICtal) 150 MG tablet 3 Active mirtazapine (Remeron) 7.5 MG tablet 3 Active prazosin (Minipress) 2 MG capsule 3 Active levothyroxine (Synthroid, Levoxyl) 25 MCG tabletIndication s:Hypothyroidism , unspecified type Take 1 tablet (25 mcg) by mouth Once daily. 90 tablet 3 4 Active Diclofenac Sodium (Voltaren) 1 % gelIndications:R ight wrist pain Apply 2g up to 4x/d as needed for pain/swelling 100 g 2 4 Active triamcinolone (Kenalog) 0.1 % creamIndications :Rash APPLY TOPICALLY IF NEEDED IN THE MORNING AND AT BEDTIME (PAIN AND SWELLING). 30 g 2 4 Active chlorhexidine (Peridex) 0.12 % solution Swish 15 mL morning and night for 1 minute. Spit, do not swallow. Do not eat or drink for 30 minutes following use. 473 mL 4 Active acyclovir (Zovirax) 400 MG tabletIndication s:Genital herpes simplex, unspecified site TAKE 1 TABLET BY MOUTH EVERY 12 HOURS 60 tablet 11 5 Active nystatin (Mycostatin) 028551 UNIT/GM powderIndication s:Intertrigo Apply topically 2 times daily. As needed for rash 60 g 2 5 09/13/19 26 Active omeprazole (PriLOSEC) [address] capsuleIndicatio ns:Gastroesophag eal reflux disease, unspecified whether esophagitis present TAKE 1 CAPSULE BY MOUTH EVERY DAY BEFORE A MEAL 90 capsule 3 5 Active meloxicam (Mobic) 7.5 MG tabletIndication s:Chronic low back pain, unspecified back pain laterality, unspecified whether sciatica present TAKE 1 TABLET BY MOUTH IN THE MORNING AND AT BEDTIME IF NEEDED FOR MODERATE PAIN 90 tablet 5 Active cetirizine (ZyrTEC) 10 MG tabletIndication s:Non-seasonal allergic rhinitis, unspecified trigger Take 1 tablet (10 mg) by mouth Once daily as needed for allergies. 90 tablet 1 5 Active albuterol (Ventolin HFA) 108 (90 Base) MCG/ACT inhalerIndicatio ns:Wheezing Inhale 2 puffs every 6 (six) hours if needed for wheezing. 18 g 1 5 09/13/19 26 Active Mometasone Furoate (Asmanex HFA) 100 MCG/ACT aerosolIndicatio ns:Wheezing Inhale 2 Act (200 mcg) 2 times daily. Rinse mouth after use 13 g 2 5 Active ferrous sulfate 325 (65 Fe) MG EC tabletIndication s:Iron deficiency anemia, unspecified iron deficiency anemia type TAKE 1 TABLET BY ORAL ROUTE EVERY OTHER DAY WITH VITAMIN C 45 tablet 3 5 Active Ascorbic Acid (vitamin C) 250 MG tabletIndication s:Iron deficiency anemia, unspecified iron deficiency anemia type Take 1 tab every other day with ferrous sulfate (iron) tablets. 45 tablet 3 5 Active metFORMIN XR (Glucophage-XR) 500 MG 24 hr tabletIndication s:Prediabetes Take 1 tab once daily with meals. Do not crush, chew, or split. 90 tablet 1 5 Active busPIRone (Buspar) 10 MG tablet TOME 1 TABLETA POR V A ORAL DOS VECES AL D A 5 Active busPIRone (Buspar) 15 MG tablet TOME 1 TABLETA POR V A ORAL DOS VECES AL D A 5 Active OXcarbazepine (Trileptal) 300 MG tablet TAKE 1 TABLET BY MOUTH TWICE A DAY REBECCA 1 TABLETA EN LA MANANA Y 1 EN LA NOCHE Active Active Problems Problem Noted Date Diagnosed [...] rhinitis 01/12/2017 Recurrent major depressive episodes, moderate Prediabetes Encounters Date Type Department Care Team Description 10/29/2024 Outside Procedure [facility] [address] [place] [address] Lakisha Beasley, OD Presbyopia (Primary Dx) 10/25/2024 Orders Only [facility] External Provider, [facility] 10/24/2024 9:00 AM EDT Office Visit [facility] [address] [place] [address] Lakisha Beasley, OD Myopia of both eyes (Primary Dx) 10/02/2024 Telephone [facility] MEDIC[facility] [address] [place] [address] Meenu Nieves ANP New Med Request 09/22/2024 2:30 PM EDT Office Visit [facility] OPTOMETRY [address] [place] [address] Lakisha Beasley, OD Exophoria (Primary Dx); Papilloma of left lower eyelid; Presbyopia 09/22/2024 Travel 09/12/2024 9:45 AM EDT Office Visit [facility] [address] [place] [address] Meenu Nieves ANP Anemia, unspecified type (Primary Dx); Hypothyroidism, unspecified type; Dizziness; High triglycerides; Prediabetes; Intertrigo; Gastroesophageal reflux disease, unspecified whether esophagitis present; Chronic low back pain, unspecified back pain laterality, unspecified whether sciatica present; Non-seasonal allergic rhinitis, unspecified trigger; Wheezing; Skin lesion 09/12/2024 Results Follow-Up [facility] [address] [place] [address] Meenu Nieves ANP TSH W/Reflex to FT4, CBC auto differential, Iron And Total Iron Binding Capacity, Additional followed-up results: 2 09/12/2024 Travel 09/11/2024 Telephone [facility] [address] [place] [address] Meenu Nieves ANP Chart Prep 09/05/2024 Patient Outreach [facility] [address] [place] [address] Meenu Nieves ANP Pre-visit Planning (SDOH negative, Tobacco screening negative. ) from Last 3 Months Immunizations Immunization Administration Dates Next Due Tdap 09/21/2021,12/14/2020 Family [...] Sign Reading Time Taken Comments Blood Pressure 130/82 09/12/2024 10:05 AM EDT Pulse 80 09/12/2024 10:05 AM EDT Temperature 37.1 C (98.7 F) 12/14/2023 10:04 AM EDT Respiratory Rate 16 09/12/2024 10:05 AM EDT Oxygen Saturation 99% 01/31/2023 11:10 AM EDT Inhaled Oxygen Concentration - - Weight 142 kg (313 lb) 09/12/2024 10:05 AM EDT Height 160 cm (5' 3 ) 09/12/2024 10:05 AM EDT Body Mass Index 55.45 09/12/2024 10:05 AM EDT Plan of Treatment Health Maintenance Due Date Last Done Comments Family Planning (PISQ) 2001 HPV Vaccines (1 - 3-dose series) 2001 Hepatitis B Vaccines (1 of 3 - 19+ 3-dose series) 2005 Dental Oral Exam 10/11/2021 04/12/2021, 03/2018, 04/11/2017 Dental Prophylaxis 10/21/2021 04/22/2021 Dental X-Ray: Bitewings 04/13/2022 04/12/2021, 04/11 Cervical Cancer Screening 02/24/2023 HPV/Cotest 02/24/2023 Pap Smear 02/24/2023 02/25/2020 COVID-19 Vaccine ( season) 2024 06/16/2021, 01/14/2021, 12/20/2020 Influenza Vaccine (#1) 2024 SDOH Screening 09/05/2025 09/05/2024 Alcohol/Substance Use Screening 09/12/2025 09/12/2024 Depression Screening 09/12/2025 09/12/2024, 09/13/19 Diabetes: Hemoglobin A1C 09/12/2025 025, 03/28/2023, 11/30/2021, Additional history exists Disability Screening 09/12/2025 09/12/2024 Tobacco Screening 10/13/2025 10/13/2024 Dental X-Ray: Full Mouth 08/13/2026 08/13/2023, 04/02 Lipid Panel 09/12/2029 09/12/2024, 03/03, 11/30/2021, Additional history exists DTaP/Tdap/Td Vaccines (3 - [...] patient's age to complete this topic Meningococcal B Vaccine Aged Out No l onger eligible based on patient's age to complete this topic Meningococcal Vaccine Aged Out No sushant milagro eligible based on patient's age to complete this topic Pneumococcal Vaccine: Pediatrics (0 to 5 Years) and At-Risk Patients (6 to 49) Years Aged Out No longer eligible based on patient's age to complete this topic RSV under 20 months Aged Out No longe r eligible based on patient's age to complete this topic Rotavirus Vaccines Aged Out No longer eligible based on patient's age to complete this topic Procedures Procedure Name Priority Date/Time Associated Diagnosis Comments MR WRIST WO CONTRAST RIGHT Routine 10/29/2024 6:32 PM EDT HEMOGLOBIN A1C Routine 09/12/2024 11:19 AM EDT Prediabetes LIPID PANEL, STANDARD Routine 09/12/2024 11:19 AM EDT High triglycerides IRON AND TOTAL IRON BINDING CAPACITY Routine 09/12/2024 11:19 AM EDT Anemia, unspecified type Dizziness CBC WITH AUTO DIFFERENTIAL Routine 09/12/2024 11:19 AM EDT Anemia, unspecified type Dizziness TSH W/REFLEX TO FT4 Routine 09/12/2024 1 1:19 AM EDT Hypothyroidism, unspecified type PANORAMIC RADIOGRAPHIC IMAGE Routine 08/13/2023 8:00 AM EDT ZZZ HISTORICAL HEPATITIS C AB W/REFL TO [...] Recently Relevant to Health Maintenance Results * MR Wrist w/o Contrast Right (10/29/2024 6:32 PM EDT) Anatomical Region Laterality Modality Upper Extremities, Wrist Right Magneti c Resonance 10/29/2024 6:32 PM EDT Narrative 10/29/2024 6:33 PM EDT [address] [address] Magnetic Resonance Report Signed Patient: Reema Navarro MR#: [id number] : 1985 Acct:[id number] Age/Sex: 39 / F ADM Date: 10/25/24 Loc: HO.MRI Attending Dr: Kamran LUTZ Ordering Physician: Kamran Mane Date of Service: 10/25/24 Procedure(s): MR wrist RT wo con Accession Number(s): [id number] cc: Kamran Mane; MEENU NIEVES NP CLINICAL HISTORY: M79.643 - Pain in unspecified hand MR of the right wrist without contrast. No prior MR. Findings: There is a carpal boss at the dorsal aspect of the base of the 2nd metatarsal. There is prominent cystic change with mild marrow edema along the pseudoarthrosis. This may be symptomatic. There is mild ill-defined marrow edema in the palmar aspect of the hamate of uncertain etiology. No other suspicious bony abnormalities are seen. The scapholunate interval is intact with no definite tear of the scapholunate ligament. There is a multi-septated ganglion anterior to the radioscaphoid articulation measuring a maximum 10 mm. There is moderate 1st extensor compartment tendinopathy with mild tenosynovitis. There is mild 2nd extensor compartment tenosynovitis. There is mild extensor carpi ulnaris tendinopathy with a small longitudinal split of the tendon. The flexor tendons are intact. The median nerve is unremarkable. There are several small ganglia along the deep surface of the carpal tunnel. There is a possible small central perforation of the triangular fibrocartilage. Impression: Carpal boss with prominent associated intraosseous cystic change and mild marrow edema. This may be symptomatic. Mild ill-defined marrow edema in the hamate is of uncertain etiology and significance. Ganglion anterior to the radioscaphoid articulation. Mild 1st and 2nd extensor compartment tenosynovitis with moderate 1st extensor compartment tendinopathy. Mild extensor carpi ulnaris tendinopathy with a small longitudinal split. Small ganglia along the portion of the carpal tunnel. Possible small central perforation of the triangular fibrocartilage. This document has been electronically signed by: Dante Rae MD on 10/29/2024 18:32:22 Dictated By: Geronimo Riley MD Signed By: <Electronically signed by Geronimo Riley MD in OV> 10/29/241832 DD/ 31 TD/TT: 10/29/241831 Community Arts Officer: Procedure Note Sheltonotlonnyter, Image - 10/29/2024 [place] [address] Magnetic Resonance Report Signed Patient: Bart Navarro#: [id number] : 1985Acct:[id number] Age/Sex: 39 / FADM Date: 10/25/24 Loc: HO.MRI Attending Dr: Kamran LUTZ Ordering Physician: Kamran Mane Date of Service: 10/25/24 Procedure(s): MR wrist RT wo con Accession Number(s): [id number] cc: Kamran Mnae; MEENU NIEVES NP CLINICAL HISTORY: M79.643 - Pain in unspecified hand MR of the right wrist without contrast. No prior MR. Findings: There is a carpal boss at the dorsal aspect of the base of the 2nd metatarsal. There is prominent cystic change with mild marrow edema along the pseudoarthrosis. This may be symptomatic. There is mild ill-defined marrow edema in the palmar aspect of the hamate of uncertain etiology. No other suspicious bony abnormalities are seen. The scapholunate interval is intact with no definite tear of the scapholunate ligament. There is a multi-septated ganglion anterior to the radioscaphoid articulation measuring a maximum 10 mm. There is moderate 1st extensor compartment tendinopathy with mild tenosynovitis. There is mild 2nd extensor compartment tenosynovitis. There is mild extensor carpi ulnaris tendinopathy with a small longitudinal split of the tendon. The flexor tendons are intact. The median nerve is unremarkable. There are several small ganglia along the deep surface of the carpal tunnel. There is a possible small central perforation of the triangular fibrocartilage. Impression: Carpal boss with prominent associated intraosseous cystic change and mild marrow edema. This may be symptomatic. Mild ill-defined marrow edema in the hamate is of uncertain etiology and significance. Ganglion anterior to the radioscaphoid articulation. Mild 1st and 2nd extensor compartment tenosynovitis with moderate 1st extensor compartment tendinopathy. Mild extensor carpi ulnaris tendinopathy with a small longitudinal split. Small ganglia along the portion of the carpal tunnel. Possible small central perforation of the triangular fibrocartilage. This document has been electronically signed by: Dante Rae MD on 10/29/2024 18:32:22 Dictated By: Geronimo Riley MD Signed By: <Electronically signed by Geronimo Riley MD in OV> 10/29/241832 DD/ 31 TD/TT: 10/29/241831 Community Arts Officer: [facility] External Provider IMG MRI PROCEDURES Final Result * TSH W/Reflex to FT4 (09/12/2024 11:19 AM EDT) TSH reflex Free T4 2.34 0.32 - 4.0 uIU/mL [facility] Blood Venous blood specimen / Unknown 09/12/2024 11:19 AM EDT 09/12/2024 12:56 PM EDT [facility] LAB BLOOD ORDERABLES Final Resul t [facility] [address] [place] [phone] * (ABNORMAL) CBC auto differential (09/12/2024 11:19 AM EDT) White Blood Count 12.3(H) 4.8 - 10.8 X10*3/uL [facility] Red Blood Count 5.20 4.20 - 5.50 X10*6/uL [facility] Hemoglobin 12.4 12.0 - 16.0 g/dl [facility] Hematocrit 38.6 37.0 - 47.0 % [facility] Mean Corpuscular Volume 74.2(L) 80.0 - 98.0 fL [facility] Mean Corpuscular Hemoglobin 23.8(L) 27.0 - 33.0 pg [facility] Mean Corpuscular HGB Conc 32.1 31.0 - 35.0 g/dl [facility] Red Cell Distribution Width 17.2(H) 11.0 - 16.0 % [facility] Platelet Count 314 160 - 400 X10*3/uL [facility] Mean Platelet Volume 9.4 9.4 - 12.3 fL [facility] Neutrophils Percent Auto 71.8 45 - 73 % [facility] Imm Gran Pct Auto 0.3 0.0 - 0.4 % [facility] Lymphocytes Percent Auto 22.1 20 - 40 % [facility] Monocytes Percent Auto 4.5 2 - 11 % [facility] Eosinophils Percent Auto 1.1 0 - 4 % [facility] Basophils Percent Auto 0.2 0 - 2 % [facility] NRBC Pct Auto 0.0 0.0 - 0.2 /100WBC [facility] Neutrophils Absolute Auto 8.8(H) 2.0 - 8.3 x10*3/uL [facility] Imm Gran Abs Auto 0.04(H) 0.00 - 0.03 X10*3/uL [facility] Lymphocytes Absolute Auto 2.7 1.2 - 4.9 X10*3/uL [facility] Monocytes Absolute Auto 0.6 0.1 - 1.2 X10*3/uL [facility] Eosinophils Absolute Auto 0.1 0.0 - 0.4 X10*3/uL [facility] Basophils Absolute Auto 0.0 0.0 - 0.2 X10*3/uL [facility] NRBC Abs Auto 0.000 0.0 - 0.012 X10*3/uL [facility] Blood Venous blood specimen / Unknown 09/12/2024 11:19 AM EDT 09/12/2024 12:56 PM EDT Meenu Nieves ANP LAB BLOOD ORDERABLES Final Resul t [facility] [address] [place] [phone] [phone] * (ABNORMAL) Iron And Total Iron Binding Capacity (09/12/2024 11:19 AM EDT) Iron 30 30 - 160 mcg/dL [facility] Total Iron Binding Capacity 320 228 - 428 mcg/dL [facility] Percent Iron Saturation 9(L) 15 - 50 % [facility] Unsaturated Iron Binding 290 ug/dL [facility] Blood Venous blood specimen / Unknown 09/12/2024 11:19 AM EDT 09/12/2024 12:56 PM EDT Meenu Nieves ANP LAB BLOOD ORDERABLES Final Resul t Performing Organization Address [facility] Co de Phone Number [facility] [address] [place] [phone] * (ABNORMAL) Hemoglobin A1c (09/12/2024 11:19 AM EDT) Hemoglobin A1c 6.1(H) <6.0 % [facility] Comment:Hemoglobin A1C Refer ence Range Adults: 4.8 - 6.0 % Non diabetic: < 6.0 % Goal: < 7.0 %Additional Action Suggested: > 8.0 %Note: Hemoglobin A1c results are invalid for patients with abnormal amounts of HbF. Blood transfusions may impact the HbA1c concentration in the patient sample. Estimated Average Glucose 128 mg/dL [facility] Comment:eAG = Estimated ave rage glucose which is %A1C expressed asaverage glucose, using the formula of the [id number] Glucose study (ADAG), Diabetes Care, Vol.31,#8,Oct. 2007 Blood Venous blood specimen / Unknown 09/12/2024 11:19 AM EDT 09/12/2024 12:56 PM EDT Meenu Nieves ANP LAB BLOOD ORDERABLES Final Resul t Performing Organization Address [facility] Co de Phone Number [facility] [address] [place] [phone] * (ABNORMAL) Lipid Panel, Standard (09/12/2024 11:19 AM EDT) Triglycerides 112 <150 mg/dL [facility] Comment:Desirable Triglyceri de: less than 150 mg/dLBorderline High Triglyceride 150-199 mg/dLHigh Triglyceride: 200-499 mg/dLVery High Triglyceride: greater than or equal to 5OO mg/dL Cholesterol 133 <200 mg/dL [facility] Comment:Desirable Cholestero l: less than 200 mg/dLBorderline High Cholesterol: 200-239 mg/dLHigh Cholesterol: greater than 239 mg/dL LDL Cholesterol Calculated 76 <100 mg/dL [facility] Comment:Desirable LDL: less than 100 mg/dLNear Optimal/Above Optimal LDL: 110- 129 mg/dLBorderline High LDL: 130-159 mg/dLHigh LDL: 160-189 mg/dLVery High LDL: greater than or equal to 190 mg/dL HDL Cholesterol 35(L) >40 mg/dL [facility] Comment:Desirable HDL: great er than 40 mg/dL Note: This HDL assay may give artificially low results in patients with liver disease. Blood Venous blood specimen / Unknown 09/12/2024 11:19 AM EDT 09/12/2024 12:56 PM EDT [facility] LAB BLOOD ORDERABLES Final Resul t [facility] [address] [place] [address] [phone] * HEPATITIS C AB W/REFL TO HCV RNA, QN, PCR (11/30/2021 11:35 AM EDT) HEPATITIS C ANTIBODY NON-REACT MALIA NON-REACT MALIA [facility] INDEX 0.19 <1.00 [facility] Comment: HCV antibody was non-reactive. There is no laboratory evidence of HCV infection. In most cases, no further action is required. However, if recent HCV exposure is suspected, a test for HCV RNA (test code 61021) is suggested. For additional information please refer to http://education.Saperion/faq/IGC46i2 (This link is being provided for informational/ educational purposes only.) 11/30/2021 11:3 5 AM EDT Reema Greer MD HISTORICAL/NON ORDERA BLE LABS Final Result [facility] [address] [place] [address], * HIV 1/2 ANTIGEN/ANTIBODY,FOURTH GENERATION W/RFL (11/30/2021 11:35 AM EDT) HIV-1/2 ANTIGEN AND ANTIBODIES, 4TH GENERATION W/ REFLEX NON-REACT MALIA NON-REACT MALIA [facility] Comment: HIV-1 antigen and HIV-1/HIV-2 antibodies were not detected. There is no laboratory evidence of HIV infection. PLEASE NOTE: This information has been disclosed to you from records whose confidentiality may be protected by state law. If your state requires such protection, then the state law prohibits you from making any further disclosure of the information without the specific written consent of the person to whom it pertains, or as otherwise permitted by law. A general authorization for the release of medical or other information is NOT sufficient for this purpose. For additional information please refer to http://MyCheck.Saperion/faq/FLQ473 (This link is being provided for informational/ educational purposes only.) The performance of this assay has not been clinically validated in patients less than 2 years old. HIV-1/2 ANTIGEN AND ANTIBODIES, 4TH GENERATION W/ REFLEX NON-REACT MALIA NON-REACT MALIA [facility] Comment: HIV-1 antigen and HIV-1/HIV-2 antibodies were not detected. There is no laboratory evidence of HIV infection. PLEASE NOTE: This information has been disclosed to you from records whose confidentiality may be protected by state law. If your state requires such protection, then the state law prohibits you from making any further disclosure of the information without the specific written consent of the person to whom it pertains, or as otherwise permitted by law. A general authorization for the release of medical or other information is NOT sufficient for this purpose. For additional information please refer to http://MyCheck.[employer].ii4b/faq/JTB219 (This link is being provided for informational/ educational purposes only.) The performance of this assay has not been clinically validated in patients less than 2 years old. 11/30/2021 11:3 5 AM EDT Reema Greer MD LAB BLOOD ORDERABLES Final Result Performing Organization Address [facility] Co de Phone Number [facility] [address] * THINPREP TIS PAP (02/25/2020 12:00 AM EST) Clinical Information: None given [facility] COMMENT SEE COMMENT [facility] Comment: EXPLANATORY NOTE: The Pap is a screening test for cervical cancer. It is not a diagnostic test and is subject to false negative and false positive results. It is most reliable when a satisfactory sample, regularly obtained, is submitted with relevant clinical findings and history, and when the Pap result is evaluated along with historic and current clinical information. COMMENT: This Pap test has been evaluated with computer assisted technology. [facility] Rail Operator : SEE COMMENT [facility] Comment: SL, CT(ASCP) CT screening location: [place] [address] Interpretation/R esult: Negative for intraepithelial lesion or malignancy. [facility] LMP: NONE [facility]IVEN [facility] Prev. BX: NONE [facility]IV[facility] Prev. PAP: NONE [facility]IV[facility] SOURCE: None given [facility] Statement Of Adequacy: SEE COMMENT [facility] Comment: Satisfactory for evaluation. Endocervical/transformation zone component present. Partially obscuring inflammation Age and/or menstrual status not provided Partially obscuring blood 02/25/2020 us Historical Provider LAB PATHOLOGY ORDERABLES Final Result Performing Organization Address [facility] Co de Phone Number [facility] [address] from Last 3 Months or Most Recently Relevant to Health Maintenance [facility] AD[facility] Care Teams Strategic Business Development Relationship Specialty Start Date End Date Meenu Nieves ANP [address] [place] [phone] PCP - General Family Medicine 11/22/20
--- OUTSIDE RECORDS SUMMARY | 2024-12-04 11:55 | XMS_ITS | Encounter Summary ---
Author Organization [facility] [facility] Address [address] [place] [address] Care Team Providers Care Safety Scientist Name Role Phone Svetlana Sloan Primary Care Provider [phone] Reason for Visit * Reason Onset Date Comments Pt-1 06/21/2023 Encounter Details Date Type Department Care Team ([facility] st Contact Info) Description 06/21/2023 Telephone [facility] MEDICINE [address] [place], [place] [phone] Svetlana Sloan ANP [address] [place], [place] [phone] Pt-1 Social History Tobacco Use Types Packs/Day [...] Miscellaneous Notes * Telephone Encounter - Naveen Jimenez - 06/21/2023 9:11 AM EDT Patient calling requesting PT1 Home Address verified: Y/N: Yes Provider name or facility name: [facility] Facility Address: [address] [place] [address] Escort needed: Y/N: Yes Do you have a wheelchair: Y/N: No If yes- Manual or electric: N/A Visits: twice a week documented in this encounter Plan of Treatment Not on file documented as of this encounter Visit Diagnoses Not on filedocumented in this encounter Care Teams Safety Scientist Relationship Specialty Start Date End Date Svetlana Sloan ANP [address] [place] [address] PCP - General Family Medicine 11/22/20 documented as of this encounter
== END 2024-12-04 10:32 | disposition home or self-care (01) ==
LOC: HO.RESP 10:31
PROVIDERS: PCP Nurse Practitioner Primary Care; Visit Provider Nurse Practitioner Primary Care
DX: R06.2 Wheezing (principal)
CPT/HCPCS: 94010; 94727; 94729

== ENCOUNTER → 2024-12-04 10:40 | Outpatient (BNV) | payer MEDICAID, SELFPAY | PROVIDERS: PCP Nurse Practitioner Primary Care; Visit Provider Internal Medicine Pulmonary Disease | DX: R06.2 Wheezing (principal) | CPT/HCPCS: 94060; 94727; 94729 ==

== ENCOUNTER 2024-12-23 12:33 | Outpatient (AMB) | payer MEDICAID, SELFPAY ==
--- NOTE | 2024-12-23 12:38 | MHC.OFFVIS ---
Vital Signs 12/23/24 12:40 Handedness Right Intake Visit Reasons: INJ- Right ECR injection Intake Note: Reema 39 year old right hand dominant, Bhutanese speaking, woman presents today for her follow up visit for discussion of injection into the right ECR tendons. Patient last seen with Ervin Andrew. At last visit it was discussed her MRI revealed longitudinal split in the ECU tendon, however patient did not have a lot of pain in this area. She was also referred to occupational therapy for range of motion and strengthening of the right wrist in the setting of extensor tendinitis Patient is status post right 1st dorsal compartment release and right carpal tunnel release DOS: 01/07/[address] Naida Springer. Today patient reports she is having pain now in the entire right hand with everything she does. Early Childhood Assistant Required: Yes Early Childhood Assistant Language: Licensed Physical Therapy Assistant Services: Early Childhood Assistant Present (ipad) Early Childhood Assistant Name: [id number] Allergies naproxen (NAPROXEN) Allergy (Unknown, Verified 12/23/24 12:41) TACHYCARDIA HPI HPI INJ- Right ECR injection: Details: Reema is a 39 year old right hand dominant Bhutanese speaking woman who returns with a new complaint of right wrist tendinitis. She complains of pain in her right hand & wrist, which she says worsens with any use of her hand. She says her pain began after a fall, DOI: 07/07/24 She was seen by BOLIVAR Andrew for an MRI review and was Dx with ECU & ECRB tendinitis. She has just started OT hand therapy last week. She has a Hx of right 1st dorsal compartment release and right carpal tunnel release DOS: 01/07/24 [facility] Medical History (Updated 12/23/24 @ 12:58 by Chris Salazar) Left ankle sprain Abscess Morbid obesity Surgical History (Updated 01/07/24 @ 12:44 by Chiara Maloney RN) History of section History of cholecystectomy Family History Maternal Grandmother Diabetes Social History Household Members: Children Alcohol intake: never Patient Tobacco Use Status: Never used Tobacco Current occupational status: unemployed Current occupation: rt handed Review of Systems Const All systems reviewed & are unremarkable except as noted in HPI and below Physical Exam Const General: no acute distress and alert Orientation/consciousness: patient oriented x3 Neuro General: patient oriented x3 Extrem Other: Evaluation of Right Upper Extremity: The patient is alert, oriented, and in no acute distress Neuro: Median, Ulnar, Radial nerves motor and sensory intact and sensation is normal to the tips of all digits Vascular: Cap refill brisk ROM: She can make a fist and extend all her digits No locking or catching Wrist flexion: ~50 degrees Wrist extension: ~30 degrees, limited by pain Pain with passive flexion and resisted extension of the right wrist, particularly in the dorsal and radial aspect Using a 0-10 pain scale: 6/10 tenderness over the ECU tendon 9/10 4th dorsal compartment tenderness 0/10 tenderness over the ECRL ECRB tendons Right wrist MRI: Impression: Carpal boss with prominent associated intraosseous cystic change and mild marrow edema. This may be symptomatic. Mild ill-defined marrow edema in the hamate is of uncertain etiology and significance. Ganglion anterior to the radioscaphoid articulation. Mild 1st and 2nd extensor compartment tenosynovitis with moderate 1st extensor compartment tendinopathy. Mild extensor carpi ulnaris tendinopathy with a small longitudinal split. Small ganglia along the portion of the carpal tunnel. Possible small central perforation of the triangular fibrocartilage. This document has been electronically signed by: Dante Rae MD on 10/29/2024 18:32:22 Psych Appearance: grossly normal Affect: normal affect Attitude: cooperative Office Procedures AMB Fracture Care Details: No fracture, injection Fracture Billing Code: Fracture Billing Code Assessment & Plan Assessment & Plan (1) Right wrist tendinitis: Comment: 4th dorsal compartment Code(s): M77.8 - Other enthesopathies, not elsewhere classified Category: Medical (2) Extensor carpi ulnaris tendinitis: Code(s): M77.8 - Other enthesopathies, not elsewhere classified Category: Medical Plan Assessment & Plan: 1. Right 4th dorsal compartment tendinitis Directly over the wrist joint This is where she is most symptomatic S/P fall, DOI: 07/07/24 2. Right ECU tendinitis S/P fall, DOI: 07/07/24 I educated her about this condition I discussed non-operative treatment options The patient would like to proceed with an injection I discussed activity modifications, she is to use her hand for lightweight activities and slowly increase her activity level as tolerated over the next few weeks She was fitted for a Velcro wrist splint, to be worn with daily activities for the next few weeks. She will remove this at rest She will work on gentle ROM exercises at home She will continue to attend OT hand therapy Injection #1: The risks and benefits of a steroid injection including but not limited to risk of damage to blood vessels, nerves, tendons, infection, skin bleaching, failure to improve symptoms, increased pain, and possible need for further injections or other intervention were discussed with the patient and the patient wishes to proceed with the steroid injection. Once consent was obtained, I sterilely prepped the area over the 4th dorsal compartment of the Right wrist. I then injected the 4th dorsal compartment with a combination of 1 mL of dexamethasone (4mg/ml), and 1% lidocaine. The patient tolerated the procedure well with no complications and some improvement of their symptoms prior to leaving clinic. If the patient continues to have pain 6-8 weeks following this injection, they may call to schedule a follow up appointment She will follow up prn 3. Right [place] tenosynovitis, S/P release DOS: 01/07/24 4. Right carpal tunnel syndrome, S/P release DOS: 01/07/24 Doing well, no complaints Scribed for Naida Springer MD by Chris Salazar, medical scientific officer, on 12/23/24 at 12:45 PM, EST. Coding Level of Care Code Est Pt Level 4 (36734) Diagnoses Right wrist tendinitis M77.8 Extensor carpi ulnaris tendinitis M77.8 CPT Codes Fracture Care - Fracture Billing Code: Fracture Billing Code ([id number])
--- OUTSIDE RECORDS SUMMARY | 2024-12-23 15:25 | XMS_ITS | Encounter Summary ---
Author Organization [facility] [facility] Address [address] 7[address] [place] [address] Care Team Providers Care Assistant Teacher Primary Name Role Phone Svetlana Sloan Primary Care Provider [phone] Reason for Visit * Reason Comments Med Refill Encounter Details Date Type Department Care Team ([facility] st Contact Info) Description 01/10/2024 Refill [facility] MEDICINE [address] [place], [place] [phone] Svetlana Sloan ANP [address] [place], [place] [phone] Rash Social History Tobacco Use Types Packs/Day [...] documented as of this encounter Care Teams Assistant Teacher Primary Relationship Specialty Start Date End Date Svetlana Sloan ANP [address] [place] [address] PCP - General Family Medicine 11/22/20 documented as of this encounter
--- OUTSIDE RECORDS SUMMARY | 2024-12-23 15:25 | XMS_ITS | Encounter Summary ---
Author Organization [employer] [facility] Address [address] [place] [address] Care Team Providers Care Stock Driver Name Role Phone Luther Svetlana EASTON Primary Care Provider [phone] Reason for Visit * Reason Comments Med Refill Encounter Details Date Type Department Care Team (Late st Contact Info) Description 05/10/2023 Refill [facility] [address] [place] [address] Shona Yousif FNP Social History Tobacco Use [...] on filedocumented in this encounter Care Teams Stock Driver Relationship Specialty Start Date End Date Svetlana Sloan ANP [address] [place] [address] PCP - General Family Medicine 11/22/20 documented as of this encounter
--- OUTSIDE RECORDS SUMMARY | 2024-12-23 15:25 | XMS_ITS | Encounter Summary ---
Author Organization [employer] [facility] Address [address] 7t [place] [address] Care Team Providers Care Migratory Worker Name Role Phone Svetlana Sloan Primary Care Provider [phone] Encounter Details Date Type Department Care Team (Late st Contact Info) Description 06/05/2022 Orders Only [facility] MEDICINE [address] [place] [address] Patricia Wagoner LPN Social History Tobacco Use [...] on filedocumented in this encounter Care Teams Migratory Worker Relationship Specialty Start Date End Date Svetlana Sloan ANP [address] [place] [address] PCP - General Family Medicine 11/22/20 documented as of this encounter
--- OUTSIDE RECORDS SUMMARY | 2024-12-23 15:25 | XMS_ITS | Encounter Summary ---
Author Organization [employer] [facility] Address [address] [place] [address] Care Team Providers Care Entry Level Receptionist Name Role Phone Svetlana Sloan Primary Care Provider [phone] Reason for Visit * Reason Onset Date Comments Pt-1 06/21/2023 Encounter Details Date Type Department Care Team ([facility] st Contact Info) Description 06/21/2023 Telephone [facility] MEDICINE [address] [place], [place] [phone] Svetlana Sloan ANP [address] [place], [place] [phone] Pt-1 Social History Tobacco Use Types Packs/Day [...] Y/N: Yes Provider name or facility name: [facility] Facility Address: [address] [place] [address] Escort needed: Y/N: Yes Do you have a wheelchair: Y/N: No If yes- Manual or electric: N/A Visits: twice a week documented in this encounter Plan of Treatment Not on file documented as of this encounter Visit Diagnoses Not on filedocumented in this encounter Care Teams Entry Level Receptionist Relationship Specialty Start Date End Date Svetlana Sloan ANP [address] [facility] [place] [address] PCP - General Family Medicine 11/22/20 documented as of this encounter
--- OUTSIDE RECORDS SUMMARY | 2024-12-23 15:25 | XMS_ITS | Encounter Summary ---
Author Organization [facility] Address [address] 7t [place] [address] Care Team Providers Care Verifying Specialist Name Role Phone Svetlana Sloan Primary Care Provider [phone] Encounter Details Date Type Department Care Team (Latest Contact Info) Description 04/22/2021 Abstract [facility] CONVERSIONS Dental, Provider, DDS Social [...] on filedocumented in this encounter Care Teams Verifying Specialist Relationship Specialty Start Date End Date Svetlana Sloan ANP [address] [place] [address] PCP - General Family Medicine 11/22/20 documented as of this encounter
--- OUTSIDE RECORDS SUMMARY | 2024-12-23 15:25 | XMS_ITS | Encounter Summary ---
Author Organization [employer] [facility] Address [address] [place] [address] Care Team Providers Care Resource Recovery Specialist Name Role Phone Svetlana Sloan Primary Care Provider [phone] Encounter Details Date Type Department Care Team (Late st Contact Info) Description 03/16/2022 Orders Only [facility] [address] [place] [address] Svetlana Sloan ANP [address] [place], [place] [phone] Wheezing (Primary Dx) Social History Tobacco Use [...] Primary documented in this encounter Care Teams Resource Recovery Specialist Relationship Specialty Start Date End Date Svetlana Sloan ANP [address] [place], [place] [phone] PCP - General Family Medicine 11/22/20 documented as of this encounter
--- OUTSIDE RECORDS SUMMARY | 2024-12-23 15:25 | XMS_ITS | Clinical Summary ---
Author Organization [employer] Address [address] 7[address] [place] [address] Care Team Providers Care Network Professional Name Role Phone Meenu Nieves JEMMA Primary Care Provider [phone] Allergies Active Allergy Reactions Criticality Noted Date [...] 60 tablet 11 5 Active nystatin (Mycostatin) 148192 UNIT/GM powderIndication s:Intertrigo Apply topically 2 times [...] Department Care Team Description 10/29/2024 Outside Procedure [facility] [address] [place] [address] Lakisha Beasley, OD Presbyopia (Primary Dx) 10/25/2024 Orders Only [facility] External Provider, [facility] 10/24/2024 9:00 AM EDT Office Visit [facility] [address] [place] [address] Lakisha Beasley, OD Myopia of both eyes (Primary Dx) 10/02/2024 Telephone [facility] [address] [place], [place] [phone] Meenu Nieves ANP New Med Request 09/22/2024 2:30 PM EDT Office Visit [facility] [address] [place] [address] Lakisha Beasley, OD Exophoria (Primary Dx); Papilloma of left lower eyelid; Presbyopia 09/22/2024 Travel from Last 3 Months Immunizations Immunization Administration [...] 09/12/2025 09/12/2024 Depression Screening 09/12/2025 09/12/2024, 09/13/19 25 Diabetes: Hemoglobin A1C 09/12/2025 025, 03/28/2023, 11/30/2021, [...] Routine 09/12/2024 11:19 AM EDT High triglycerides PANORAMIC RADIOGRAPHIC IMAGE Routine 08/13/2023 8:00 AM [...] PM EDT Narrative 10/29/2024 6:33 PM EDT [place] [address] Magnetic Resonance Report Signed Patient: Reema Navarro MR#: [id number] : 1985 Acct:[id number] Age/Sex: 39 / F ADM Date: 10/25/24 Loc: HO.MRI Attending Dr: Kamran LUTZ Ordering Physician: Kamran Mane Date of Service: 10/25/24 Procedure(s): MR wrist RT wo con Accession Number(s): [id number] cc: Kamran Mane; MEENU NIEVES NP CLINICAL [...] Riley MD Signed By: <Electronically signed by Greonimo Riley MD in OV> 10/29/241832 DD/ 31 TD/TT: 10/29/241831 Clipping Marker: Procedure Note Donotuseinterpreter, Image - 10/29/2024 [place] [address] Magnetic Resonance Report Signed Patient: Reema Navarro#: [id number] : 1985Acct:[id number] Age/Sex: 39 / FADM Date: 10/25/24 Loc: HO.MRI Attending Dr: Kamran LUTZ Ordering Physician: Kamran Mane Date of Service: 10/25/24 Procedure(s): MR wrist RT wo con Accession Number(s): [id number] cc: Kamran Mane; MEENU NIEVES NP CLINICAL [...] signed by Geronimo Riley MD in OV> 10/29/24 1833 DD/ 183 TD/TT: 10/29/24 183 Clipping Marker: us [facility] External Provider IMG MRI PROCEDURES Final Result * (ABNORMAL) Hemoglobin A1c (09/12/2024 11:19 AM EDT) Hemoglobin A1c 6.1(H) <6.0 % [facility] Comment:Hemoglobin A1C Refer ence Range Adults: 4.8 - 6.0 % Non diabetic: < 6.0 % Goal: < 7.0 %Additional Action Suggested: > 8.0 %Note: Hemoglobin A1c results are invalid for patients with abnormal amounts of HbF. Blood transfusions may impact the HbA1c concentration in the patient sample. Estimated Average Glucose 128 mg/dL [facility] Comment:eAG = Estimated ave rage glucose which is %A1C expressed asaverage glucose, using the formula of the K9W-ZryepseUtgtnyp Glucose study (ADAG), Diabetes Care, Vol.31,#8,Oct. 2007 Blood Venous blood specimen / Unknown 09/12/2024 11:19 AM EDT 09/12/2024 12:56 PM EDT Meenu Nieves ANP LAB BLOOD ORDERABLES Final Resul t Performing Organization Address [facility]/ZIP Co de Phone Number [facility] [address] [place] [phone] * (ABNORMAL) Lipid Panel, Standard (09/12/2024 11:19 AM EDT) Triglycerides 112 <150 mg/dL [facility] Comment:Desirable Triglyceri de: less than 150 mg/dLBorderline High Triglyceride 150-199 mg/dLHigh Triglyceride: 200-499 mg/dLVery High Triglyceride: greater than or equal to 5OO mg/dL Cholesterol 133 <200 mg/dL [facility] Comment:Desirable Cholestero l: less than 200 mg/dLBorderline High Cholesterol: 200-239 mg/dLHigh Cholesterol: greater than 239 mg/dL LDL Cholesterol Calculated 76 <100 mg/dL [facility] Comment:Desirable LDL: less than 100 mg/dLNear Optimal/Above Optimal LDL: 110- 129 mg/dLBorderline High LDL: 130-159 mg/dLHigh LDL: 160-189 mg/dLVery High LDL: greater than or equal to 190 mg/dL HDL Cholesterol 35(L) >40 mg/dL [facility] Comment:Desirable HDL: great er than 40 mg/dL Note: This HDL assay may give artificially low results in patients with liver disease. Blood Venous blood specimen / Unknown 09/12/2024 11:19 AM EDT 09/12/2024 12:56 PM EDT Meenu Nieves ANP LAB BLOOD ORDERABLES Final Resul t Performing Organization Address [facility]/ZIP Co de Phone Number [facility] [address] [place] [phone] * HEPATITIS C AB W/REFL TO [...] a test for HCV RNA (test code 67352) is suggested. For additional information please refer to http://[employer].Si[employer] Processing/faq/DOC73b4 (This link is being provided for informational/ educational purposes only.) 11/30/2021 11:3 5 AM EDT us Reema Greer MD HISTORICAL/NON ORDERA BLE LABS Final Result [facility] [address] * HIV 1/2 ANTIGEN/ANTIBODY,FOURTH GENERATION W/RFL (11/30/2021 11:35 AM EDT) HIV-1/2 ANTIGEN AND ANTIBODIES, 4TH GENERATION W/ REFLEX NON-REACT MALIA NON-REACT MALIA [facility] Comment: HIV-1 antigen and HIV-1/HIV-2 [...] purpose. For additional information please refer to http://[employer] D[employer].Si[employer] Processing/faq/NTH530 (This link is being provided for informational/ educational purposes only.) The performance of this assay has not been clinically validated in patients less than 2 years old. HIV-1/2 ANTIGEN AND ANTIBODIES, 4TH GENERATION W/ REFLEX NON-REACT MALIA NON-REACT MALIA [facility] Comment: HIV-1 antigen and HIV-1/HIV-2 [...] purpose. For additional information please refer to http://education.SiC Processing/faq/AYR974 (This link is being provided for informational/ educational purposes only.) The performance of this assay has not been clinically validated in patients less than 2 years old. 11/30/2021 11:3 5 AM EDT Reema Greer MD LAB BLOOD ORDERABLES Final Result Performing Organization Address City/State/[facility] Co de Phone Number [facility] [address] [place] [address], * THINPREP TIS PAP (02/25/2020 12:00 AM [...] has been evaluated with computer assisted technology. [facility] Scaffolder : SEE COMMENT [facility] Comment: SL, CT(ASCP) CT screening location: [place] [address] Interpretation/R esult: Negative for intraepithelial lesion or malignancy. [facility] LMP: NONE [facility] Prev. BX: NONE [facility] Prev. PAP: NONE [facility] SOURCE: None given [facility] Statement Of Adequacy: SEE COMMENT [facility] Comment: Satisfactory for evaluation. Endocervical/transformation zone component present. Partially obscuring inflammation Age and/or menstrual status not provided Partially obscuring blood 02/25/2020 Juancarlos Provider LAB PATHOLOGY ORDERABLES Final Result [facility] [address] from Last 3 Months or Most Recently Relevant to Health Maintenance Insurance [facility] C3 [facility] MEDICAID STAND ADULT Care Teams Network Professional Relationship Specialty Start Date End Date Meenu Nieves ANP [address] [place] [phone] PCP - General Family Medicine 11/22/20
--- OUTSIDE RECORDS SUMMARY | 2024-12-23 15:25 | XMS_ITS | Encounter Summary ---
Author Organization [employer] [facility] Address [address] [place] [address] Care Team Providers Care Cloth Layer Name Role Phone Svetlana Sloan Primary Care Provider [phone] Reason for Visit * Reason Onset Date Comments Lab Orders 03/05/2023 Encounter Details Date Type Department Care Team ([facility] st Contact Info) Description 03/05/2023 Telephone [facility] MEDICINE [address] [place], [place] [phone] Svetlana Sloan ANP [address] [place], [place] [phone] Lab Orders Social History Tobacco Use Types [...] on filedocumented in this encounter Care Teams Cloth Layer Relationship Specialty Start Date End Date Svetlana Sloan ANP [address] [place] [phone] PCP - General Family Medicine 11/22/20 documented as of this encounter
--- OUTSIDE RECORDS SUMMARY | 2024-12-23 15:25 | XMS_ITS | Encounter Summary ---
Author Organization [employer] [facility] Address [address]t [place] [address] Care Team Providers Care On Call Pharmacy Technician Name Role Phone Svetlana Sloan Primary Care Provider [phone] Reason for Visit * Reason Onset Date Comments Results 11/27/2022 Encounter Details Date Type Department Care Team ([facility] st Contact Info) Description 11/27/2022 Telephone [facility] MEDIC[facility] [address] [place], [place] [phone] Svetlana Sloan ANP [address] [place], [place] [phone] Results Social History Tobacco Use Types Packs/Day [...] does not use mychart and patient speaks latvian. * Telephone Encounter - Ana May - 01/26/2023 3:47 PM EDT Tc from pt calling in regards to message above. Please contact pt at [phone] (Hong Konger) * Telephone Encounter - Ashley Vera - 01/02/2023 12:54 PM EDT Tc from patient re calling in regards to [place] [facility] [place]. * Telephone Encounter - Holly Schilling - 12/28/2022 8:35 AM EDT Tc from patient re calling in regards to renal US results [place] [facility] [place] Patient doesn't recall on what date. Patient speaks latvian. * Telephone Encounter - Ana May - 11/27/2022 10:39 AM EDT Tc from pt requesting results for renal US. States she has not heard anything. Please contact pt at [phone] (Hong Konger) documented in this encounter Plan of Treatment Not on file documented as of this encounter Visit Diagnoses Not on filedocumented in this encounter Care Teams On Call Pharmacy Technician Relationship Specialty Start Date End Date Svetlana Sloan ANP [address] [place] [phone] PCP - General Family Medicine 11/22/20 documented as of this encounter
--- OUTSIDE RECORDS SUMMARY | 2024-12-23 15:25 | XMS_ITS | Encounter Summary ---
Author Organization [employer] [facility] Address [address]t [place] [address] Care Team Providers Care Nursing Home Assistant Name Role Phone Svetlana Sloan Primary Care Provider Reason for Visit * Reason Onset Date Comments Nurse Triage 09/14/2023 Encounter Details Date Type Department Care Team ([facility] st Contact Info) Description 09/14/2023 Telephone [facility] MEDICINE [address] [place], [place] [phone] Svetlana Sloan ANP [address] [place], [place] [phone] Nurse Triage Social History Tobacco Use Types [...] EDT Triage call returned to patient with [place] [employer] [id number]. Patient with rash described as below the knee n left leg from ankle to calf. No known exposure to irritants. Has been using alcohol todiminish itching. No fluid filled blisters just red bumps. No fever or spreading redness. Disposition reviewed and patient in agreement with plan. Unable to come to [facility] has appt today at [facility] and will seek evaluation there at [...] Override Notes: Patient unable to come to [facility] today. 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
== END 2024-12-23 15:17 | disposition home or self-care (01) ==
LOC: HO.HOS 12:34
PROVIDERS: PCP Nurse Practitioner Primary Care; Visit Provider Orthopaedic Surgery
DX: M77.8 Other enthesopathies, not elsewhere classified (principal); M25.531 Pain in right wrist
CPT/HCPCS: 20550; 99214

== ENCOUNTER → 2024-12-23 12:33 | Outpatient (BNVA) | payer MEDICAID, SELFPAY | PROVIDERS: PCP Nurse Practitioner Primary Care; Visit Provider Orthopaedic Surgery | DX: M77.8 Other enthesopathies, not elsewhere classified (principal) | CPT/HCPCS: 20550; 99212; J1100; J2003 ==

== ENCOUNTER 2025-01-26 11:04 | Outpatient (RCR) | payer MEDICAID, SELFPAY ==
--- NOTE | 2024-12-22 13:19 | MHC.OT.OEV ---
[facility] Office [address] [phone] F: [phone] F: [phone] Occupational Therapy Evaluation Patient Name: Reema Jimenez Diagnosis: (R)extensor carpi radialis brevis tenosynovitis Date of Onset: 07/01/24 Date of Surgery: Attending Provider: Kamran Mane Prescribed Treatment: MD Follow Up Appointment: History of Current Condition: Patient is a 39 y/o (R)handed English speaking female with PMHx of (B)CTR who was referred to skilled OT for (R)wrist pain. She stated she sustained a mechanical fall with (B)out stretched arm causing pain in the radial side and dorsum of the wrist which travels up to the elbow. It is a constant pain that is like a stabbing with a needle , which is an 8/10 at rest, 9/10 during movement. She had a MRI which revealed: Carpal boss with prominent associated intraosseous cystic change and mild marrow edema. This may be symptomatic. Mild ill-defined marrow edema in the hamate is of uncertain etiology and significance. Ganglion anterior to the radioscaphoid articulation. Mild 1st and 2nd extensor compartment tenosynovitis with moderate 1st, extensor compartment tendinopathy. Mild extensor carpi ulnaris tendinopathy with a small longitudinal split. Small ganglia along the portion of the carpal tunnel. Possible small central perforation of the triangular fibrocartilage. She reports mild pain on the ulnar side of wrist, the pain is mostly on the radial side. She reports she lives with her 2 children, she does not work outside of the home, she performs house hold chores. Reports her PLOF as (I)ADLs/IADLs. She states difficulty with using utensils, opening jars, and performing twisting motion. She likes to draw. Significant Medical History: GERD IBS Left ankle sprain Abscess Morbid obesity Precautions/Contraindications: DOS 01/07/24 Patient Goals: Hand Dominance: Right Observations: QuickDASH Score: 75% Prior Level of Function and Occupation Self Care, Employment, Leisure: Living Situation, Family and/or Social Support: Current Level of Function and Occupation Self Care, Employment, Leisure: Sleep: Occasionally will wake because of the pain Driving: Vision: Balance: Pain Assessment Pain Score: Pain Scale Used: Pain Location and Description: 8/10 at rest 9/10 pain during during movement Aggravating Factors: Alleviating Factors: ibuprofen, putting hand into warm water with bath salts Skin and Soft Tissue Assessment Skin and Soft Tissue: Other Comments: Intact Nerve assessment Ulnar Nerve: Median Nerve: Radial Nerve: Comments: Sensory Assessment Temperature: Light Touch: Proprioception: Vibration: Comments: Edema Assessment Upper Extremity: Lower Extremity: Comments: (R)21 MCPS, 18= 39cms (L)20.5 MCPS, 17.6 =38.1cms Mild edema present Dexterity Assessment Dexterity: Comments: Special Tests Comments: AROM(PROM) Strength Cervical Cervical Flexion: Cervical Extension: Cervical Lateral Flexion: Cervical Rotation: Comments: Shoulder Flexion: Extension: Abduction: Internal Rotation: External Rotation: Comments: Flexion: Extension: Abduction: Internal Rotation: External Rotation: Comments: Elbow Flexion: Extension: Pronation: Supination: Comments: Flexion: Extension: Pronation: Supination: Comments: Wrist Flexion: 65 Extension: 55 Ulnar Deviation: 25 Radial Deviation: 10 Comments: Flexion: Extension: Ulnar Deviation: Radial Deviation: Comments: Thumb Thumb CMC Flexion: WFL Thumb MCP Flexion: WFL Thumb IP Flexion: WFL Radial Abduction: Palmar Abduction: [place] (Kapandji 0-10): 10 Comments: Digits Index MCP: PIP: DIP: Long MCP: PIP: DIP: Ring MCP: PIP: DIP: Small MCP: PIP: DIP: Comments: WFL Gross Grasp: 25lbs. (R), 3lbs.(L) Lateral Pinch: 2 Two-Point Pinch: 3 Three-Jaw Casey: 4 Comments: Patient Education Primary Language: Fiberglass Finisher Required: Yes Current Knowledge: Understands information with skills for self-management Teaching Method: Verbal Education Needs Identified on Evaluation: ADL's Exercise Pain Safety How did patient/family demonstrate learning? Patient demonstrates Patient verbalizes Barriers to Learning: None Readiness for Learning: Accepting Who was educated? Patient Comments: Plan of Care Assessment: Based on initial OT evaluation patient present's with impaired ROM, impaired strength, pain, edema, and impaired performance during self care tasks. Quick DASH=75% indicating patient's perceived impairment of UEs during self care tasks. Due to the documented impairment's it is recommended that patient receive skilled OT to address patient's deficits and promote joint integrity. Thank you for your referral. STG Duration: 2 weeks Short Term Goals: Patient will report decreased pain to 7/10 pain in (R)wrist Patient will be (I) with orthosis wear schedule Patient will be increase (R)holistic pulser strength to 30lbs. Patient will be (I) in joint protection techniques Patient will increase (R)wrist extension to 65* Patient will increase (R)wrist flexion to 75* LTG Duration: 4 weeks Oracle Security Consultant Goals: Patient will report 1/10 pain Patient will be (I) with HEP Patient will report decrease Quick DASH score to 40% or less Frequency and Duration: The patient will be seen Skilled OT eval and treat Treatment Plan: Therapeutic Exercise Therapeutic Activity Home Exercise Program Splinting Neuro Re-ed Patient Education Desensitization/Sensory Re-ed Edema Control ADL Training Ultrasound NMES Iontophoresis Paraffin Fluidotherapy MHP Cold Packs Joint Mobilization Soft Tissue Mobilization Kinesiotaping Electronically Signed By: Lovely Mcmullen OTR/L, CLT Reviewed/agree with student documentation: Therapist: Please sign and return to therapist, Thank you for your referral.
--- NOTE | 2025-01-27 10:07 | MHC.OT.DC ---
[facility] Office [address] [phone] F: [phone] F: [phone] Occupational Therapy Discharge Note Patient Name: Reema Jimenez Provider: Kamran Mane Diagnosis: (R)extensor carpi radialis brevis tenosynovitis Date of Surgery: Date of Evaluation: 12/19/24 Date of Discharge: Treatments to Date: 7 Cancellations to Date: No Shows to Date: Discharge Status: Patient Elected to Stop Discharge Summary: Patient informed this OT that this was her last treatment at the end of session. Patient declined to continue therapy. OT reviewed HEP with patient and educated patient that is she requires further sessions she can contact [facility] at any time. Electronically Signed By: KEYSHA Houston/AMADO Quinn Reviewed/agree with student documentation: Therapist: Please Sign and return to therapist, thank you for your referral.
== END 2025-01-27 10:08 | disposition home or self-care (01) ==
LOC: HO.OT 11:04
PROVIDERS: PCP Nurse Practitioner Primary Care
DX: M77.8 Other enthesopathies, not elsewhere classified (principal); M65.931 Unspecified synovitis and tenosynovitis, right forearm
CPT/HCPCS: 97110; 97140; 97165

== ENCOUNTER 2025-02-12 11:12 | Outpatient (REF) | payer MEDICAID, SELFPAY ==
--- OUTSIDE RECORDS SUMMARY | 2025-02-12 11:00 | XMS_ITS | Encounter Summary ---
Author Organization [employer] [facility] Address [address] [place] [address] Care Team Providers Care Veterinary Physiologist Name Role Phone Svetlana Sloan JEMMA Primary Care Provider Reason for Visit * Reason Comments pap Encounter Details Date Type Department Care Team (Latest Contact Info) Description 02/12/2025 11:00 AM EST Procedure Visit [facility] MEDICINE [address] [place], [place] [phone] Connie Hess CNM [address] [place], [place] [phone] Cervical cancer screening (Primary Dx); Screening examination for venereal disease; Abnormal uterine bleeding Social History Tobacco Use Types Packs/Day Years Used Date Smoking Tobacco: Former Cigarettes Alcohol Use Standard Drinks/Week Comments Never 0 (1 standard drink = 0.6 oz [...] Access Q2 Not on file 09/05/2024 Comments No Intention Date Recorded No desire to become (finding) 1 04/14/2024 Sex and Gender Information Value Date Recorded Sex Assigned at Female 01/30/2022 10:32 AM EDT Legal Sex Female 10:32 AM EDT Gender Identity Choose not to disclose 10:32 AM EDT Sexual Orientation Choose not to disclose 2021 10:32 AM EDT documented as of this encounter Last Filed Vital Signs Vital Sign Reading Time Taken Comments Blood Pressure 120/80 02/12/2025 10:53 AM EST Pulse 78 02/12/2025 10:53 AM EST Temperature 36.3 C (97.4 F) 02/12/2025 10:53 AM EST Respiratory Rate 16 02/12/2025 10:53 AM EST Oxygen Saturation 98% 02/12/2025 10:53 AM EST Inhaled Oxygen Concentration - - Weight 138 kg (305 lb) 02/12/2025 10:53 AM EST Height - - Body Mass Index 54.03 09/12/2024 10:05 AM EDT documented in this encounter Progress Notes * Connie Hess CNM - 02/12/2025 11:00 AM EST Subjective Patient ID: Reema Jimenez is a 40 y.o. female who presents for pap Pap NIL 02/2020. Has tubal ligation. HBsAb borderline 2019. HIV neg, Hep C neg 2021. Gonorrhea/Chlamydia/trichomonas neg 2023. 1 new AMAB partner x few months, agrees to STI testing today. Notes more frequent menses for past few months, not sure exactly how long. LMP 02/07/2025, previous menses late 12/2024. Usually bleeds x 6-7d, 5 pads/day. Heavy and crampy at times. No other vaginal or urinary symptoms. Breast exam deferred today. Review of Systems Gastrointestinal: Negative for constipation and diarrhea. Endocrine: Negative for cold intolerance and heat intolerance. Genitourinary: Positive for menstrual problem. Negative for dyspareunia, dysuria, frequency, genital sores, hematuria, pelvic pain, urgency, vaginal bleeding, vaginal discharge and vaginal pain. No abnormal pap, no breast pain, no breast mass, no nipple discharge Objective BP 120/80 (BP Location: Left arm, Patient Position: Sitting, BP Cuff Size: Adult) Pulse 78 Temp97.4 ??F (36.3 ??C) (Oral) Resp 16 Wt 305 lb (138 kg) LMP 02/07/2025 SpO2 98% BMI 54.03 kg/m?? Physical Exam Minute Clerk present: declines binder caser. Constitutional: Appearance: Normal appearance. Abdominal: General: A surgical scar is present. Genitourinary: General: Normal vulva. Labia: Right: No rash, tenderness, lesion or injury. Left: No rash, tenderness, lesion or injury. Vagina: Normal. No signs of injury and foreign body. No vaginal discharge, erythema, tenderness, bleeding or lesions. Cervix: No cervical motion tenderness, discharge, friability, lesion, erythema, cervical bleeding or eversion. Uterus: Normal. Not enlarged and not tender. Adnexa: Right adnexa normal and left adnexa normal. Right: No mass, tenderness or fullness. Left: No mass, tenderness or fullness. Comments: Scant blood in vagina Neurological: Mental Status: She is alert. Psychiatric: Mood and Affect: Mood normal. Behavior: Behavior normal. Assessment/Plan Diagnoses and all orders for this visit: Cervical cancer screening - Pap Smear Cotest today. Will contact with results and plan. Screening examination for venereal disease - STI testing add on (NG, CT, Trich) - Hepatitis B Surface Antibody, Qualitative; Future - Hepatitis B surface antigen, EIA; Future - Hepatitis B Core Antibody, Total; Future - Syphilis Screen; Future - HIV-1/2 Antigen and Antibodies, Fourth Generation, with Reflexes; Future - Hepatitis C Antibody with Reflex to HCV, RNA, Quantitative, Real-Time PCR; Future Pap based and serum STI testing ordered. Will contact with results. Abnormal uterine bleeding It sounds like this has been going on for a few months. Normal TSH 08/2024. Will repeat TSH and order ultrasound if all testing today normal. Report heavy bleeding/pelvic pain. documented in this encounter Plan of Treatment Upcoming Encounters Date Type Department Care Team (Late st Contact Info) Description 03/06/2025 1:30 PM EST Office Visit [facility] MEDICINE [address] [place] [address] [phone] Rossy Blount MD [address] [place], [place] [phone] 04/23/2025 9:00 AM EST Office Visit [facility] MEDICINE [address] [place] [address] [phone] Svetlana Sloan ANP [address] [place], [place] [phone] Scheduled Orders Name Type Priority Associated Diagnoses Orde r Schedule Pap Smear Pathology and Cytology Routine Cervical cancer screening Ordered: 02/12/2025 STI testing add on (NG, CT, Trich) Pathology and Cytology Routine Screening examination for venereal disease Ordered: 02/12/2025 Hepatitis B Surface Antibody, Qualitative Lab Routine Screening examination for venereal disease Expected: 02/12/2025 (Approximate), Expires: 02/12/2026 Hepatitis B surface antigen, EIA Lab Routine Screening examination for venereal disease Expected: 02/12/2025 (Approximate), Expires: 02/12/2026 Hepatitis B Core Antibody, Total Lab Routine Screening examination for venereal disease Expected: 02/12/2025 (Approximate), Expires: 02/12/2026 Syphilis Screen Lab Routine Screening examination for venereal disease Expected: 02/12/2025 (Approximate), Expires: 02/12/2026 HIV-1/2 Antigen and Antibodies, Fourth Generation, with Reflexes Lab Routine Screening examination for venereal disease Expected: 02/12/2025 (Approximate), Expires: 02/12/2026 Hepatitis C Antibody with Reflex to HCV, RNA, Quantitative, Real-Time PCR Lab Routine Screening examination for venereal disease Expected: 02/12/2025 (Approximate), Expires: 02/12/2026 documented as of this encounter Visit Diagnoses Diagnosis Cervical cancer screening- Primary Screening for malignant neoplasm of the cervix Screening examination for venereal disease Abnormal uterine bleeding Unspecified disorder of menstruation and other abnormal bleeding from female genital tract documented in this encounter Additional Health Concerns Assessment Noted Time PHQ-9 Depression Total Score: 0 09/13/19 25 10:06 AM EDT documented as of this encounter Care Teams Veterinary Physiologist Relationship Specialty Start Date End Date Svetlana Sloan ANP [address] [place] [phone] PCP - General Family Medicine 11/22/20 documented as of this encounter
[2025-02-12 13:05] LABS: MANUAL DIFF FLAG NO
[2025-02-12 13:22] LABS: Hematocrit 39.5 % (37.0-47.0); Hemoglobin 12.6 g/dl (12.0-16.0); Imm Gran Abs Auto 0.01 X10*3/uL (0.00-0.03); Imm Gran Pct Auto 0.1 % (0.0-0.4); Lymphocytes Absolute Auto 2.4 X10*3/uL (1.2-4.9); Mean Corpuscular HGB Conc 31.9 g/dl (31.0-35.0); Mean Corpuscular Hemoglobin 23.8 pg (27.0-33.0); Mean Corpuscular Volume 74.7 fL (80.0-98.0); NRBC Abs Auto 0.000 X10*3/uL (0.0-0.012); NRBC Pct Auto 0.0 /100WBC (0.0-0.2); Platelet Count 321 X10*3/uL (160-400); Red Blood Count 5.29 X10*6/uL (4.20-5.50); White Blood Count 9.7 X10*3/uL (4.8-10.8)
--- OUTSIDE RECORDS SUMMARY | 2025-02-12 14:07 | XMS_ITS | Encounter Summary ---
Author Organization [employer] [facility] Address [address] [place] [address] Care Team Providers Care Veterinary Technician Name Role Phone Svetlana Sloan Primary Care Provider Encounter Details Date Type Department Care Team (Latest Contact Info) Description 04/22/2021 Abstract [facility] CONVERSIONS Dental, Provider, DDS Social [...] Description 03/06/2025 1:30 PM EST Office Visit [facility] MEDICINE [address] [place] [phone] Rossy Blount MD [address] [place] [phone] 04/23/2025 9:00 AM EST Office Visit [facility] MEDICINE [address] [place] [phone] Svetlana Sloan ANP [address] [place] [phone] documented as of this encounter Visit Diagnoses Not on filedocumented in this encounter Care Teams Veterinary Technician Relationship Specialty Start Date End Date Svetlana Sloan ANP [address] [place] [phone] PCP - General Family Medicine 11/22/20 documented as of this encounter
--- OUTSIDE RECORDS SUMMARY | 2025-02-12 14:07 | XMS_ITS | Encounter Summary ---
Author Organization [employer] [facility] Address [address] [place] [address] Care Team Providers Care Production Stage Manager Name Role Phone Svetlana Sloan Primary Care Provider [phone] Reason for Visit * Reason Onset Date Comments Lab Orders 03/05/2023 Encounter Details Date Type Department Care Team ([facility] st Contact Info) Description 03/05/2023 Telephone [facility] MEDICINE [address] [place], [place] [phone] Svetlana Sloan ANP [address] [place], [place] [phone] Lab Orders Social History Tobacco Use Types [...] Description 03/06/2025 1:30 PM EST Office Visit [facility] MEDICINE [address] [place] [phone] Rossy Blount MD [address] [place] [address] 04/23/2025 9:00 AM EST Office Visit [facility] MEDICINE [address] [place] [phone] Svetlana Sloan ANP [address] [place] [address] documented as of this encounter Visit Diagnoses Not on filedocumented in this encounter Care Teams Production Stage Manager Relationship Specialty Start Date End Date Svetlana Sloan ANP [address] [place] [address] PCP - General Family Medicine 11/22/20 documented as of this encounter
--- OUTSIDE RECORDS SUMMARY | 2025-02-12 14:07 | XMS_ITS | Encounter Summary ---
Author Organization [employer] [facility] Address [address] [facility] 7t [place] [address] Care Team Providers Care Safety Specialist Name Role Phone Svetlana Sloan Primary Care Provider [phone] Reason for Visit * Reason Onset Date Comments Results 11/27/2022 Encounter Details Date Type Department Care Team ([facility] st Contact Info) Description 11/27/2022 Telephone [facility] MEDICINE [address] [place], [place] [phone] Svetlana Sloan ANP 230 [place], [place] [phone] Results Social History Tobacco Use Types Packs/Day [...] does not use mychart and patient speaks northern irish. * Telephone Encounter - Ana May - 01/26/2023 3:47 PM EDT Tc from pt calling in regards to message above. Please contact pt at [phone] (Gabonese) * Telephone Encounter - Ashley Vera - 01/02/2023 12:54 PM EDT Tc from patient re calling in regards to renal US results done in [facility] in [place], [place]. * Telephone Encounter - Holly Schilling - 12/28/2022 8:35 AM EDT Tc from patient re calling in regards to renal US results done in [facility] in [place] Patient doesn't recall on what date. Patient speaks northern irish. * Telephone Encounter - Ana May - 11/27/2022 10:39 AM EDT Tc from pt requesting results for renal US. States she has not heard anything. Please contact pt at [phone] (Gabonese) documented in this encounter Plan of Treatment Upcoming Encounters Date Type Department Care Team (Late st Contact Info) Description 03/06/2025 1:30 PM EST Office Visit [facility] MEDICINE [address] [place] [address] Rossy Blount MD [address] [place] [address] 04/23/2025 9:00 AM EST Office Visit [facility] MEDICINE [address] [place], [place] [phone] Svetlana Sloan ANP [address] [place] [address] documented as of this encounter Visit Diagnoses Not on filedocumented in this encounter Care Teams Safety Specialist Relationship Specialty Start Date End Date Svetlana Sloan ANP [address] [place] [phone] PCP - General Family Medicine 11/22/20 documented as of this encounter
--- OUTSIDE RECORDS SUMMARY | 2025-02-12 14:08 | XMS_ITS | Encounter Summary ---
Author Organization [employer] Address [address] [facility] [address] 7t [place] [address] Care Team Providers Care Swager Operator Name Role Phone Svetlana Sloan Primary Care Provider [phone] Reason for Visit * Reason Onset Date Comments pt1 01/21/2025 Encounter Details Date Type Department Care Team ([facility] st Contact Info) Description 01/21/[address] [facility] MEDICINE [address] [place], [place] [phone] Svetlana Sloan ANP [address] [place] [address] pt1 Social History Tobacco Use Types Packs/Day Years [...] encounter Miscellaneous Notes * Telephone Encounter - Braon Lama - 01/21/2025 2:46 PM EDT Patient calling requesting PT1 Home Address verified: Y/N: Yes Provider name or facility name: [address] [address] Escort needed: Y/N: Yes Do you have a wheelchair: Y/N: No If yes- Manual or electric: Visits: 2x a week for 12 months documented in this encounter Plan of Treatment Upcoming Encounters Date Type Department Care Team (Late st Contact Info) Description 03/06/2025 1:30 PM EST Office Visit [facility] MEDICINE [address] [place] [address] Rossy Blount MD [address] [place] [phone] 04/23/2025 9:00 AM EST Office Visit [facility] MEDICINE [address] [place] [address] Svetlana Sloan ANP [address] [place] [address] documented as of this encounter Visit Diagnoses Not on filedocumented in this encounter Additional Health Concerns Assessment Noted Time PHQ-9 Depression Total Score: 0 09/13/19 25 10:06 AM EDT documented as of this encounter Care Teams Swager Operator Relationship Specialty Start Date End Date Svetlana Sloan ANP [address] [place] [address] PCP - General Family Medicine 11/22/20 documented as of this encounter
--- OUTSIDE RECORDS SUMMARY | 2025-02-12 14:08 | XMS_ITS | Encounter Summary ---
Author Organization [employer] [facility] Address [address] 7t [place] [address] Care Team Providers Care Ambulatory Services Representative Name Role Phone Svetlana Sloan JEMMA Primary Care Provider [phone] Encounter Details Date Type Department Care Team (Latest Contact Info) Description 02/12/2025 Travel Social History Tobacco Use Types Packs/Day [...] Q2 Not on file 09/05/2024 Comments No Sex and Gender Information Value Date Recorded [...] Description 03/06/2025 1:30 PM EST Office Visit [facility] MEDICINE [address] [place] [address] Rossy Blount MD [address] [place] [address] 04/23/2025 9:00 AM EST Office Visit [address] [address] Svetlana Sloan ANP [address] [place] [address] documented as of this encounter Visit Diagnoses Not on filedocumented in this encounter Additional Health Concerns Assessment Noted Time PHQ-9 Depression Total Score: 0 09/13/19 25 10:06 AM EDT documented as of this encounter Care Teams Ambulatory Services Representative Relationship Specialty Start Date End Date Svetlana Sloan ANP [address] [place] [phone] PCP - General Family Medicine 11/22/20 documented as of this encounter
--- OUTSIDE RECORDS SUMMARY | 2025-02-12 14:08 | XMS_ITS | Encounter Summary ---
Author Organization [employer] Address [address] [facility] 7t [place] [address] Care Team Providers Care Tool Tender Name Role Phone Svetlana Sloan Primary Care Provider [phone] Reason for Visit * Reason Onset Date Comments chart prep 02/11/2025 Encounter Details Date Type Department Care Team ([facility] st Contact Info) Description 02/11/2025 Telephone [facility] MEDICINE 230 [place], [place] [phone] Svetlana Sloan ANP 230 [place] [address] chart prep Social History Tobacco Use Types Packs/Day Years [...] encounter Miscellaneous Notes * Telephone Encounter - Maribel May [place] - 02/11/2025 3:13 PM EST ..Chart Prep Labs: not applicable Images: not applicable Vaccines due: Covid Due and Hep B Due Referrals: Not Applicable Screenings: LMP Overdue care gaps: None documented in this encounter Plan of Treatment Upcoming Encounters Date Type Department Care Team (Late st Contact Info) Description 03/06/2025 1:30 PM EST Office Visit [facility] MEDICINE [address] [place] [phone] Rossy Blount MD [address] [place] [address] 04/23/2025 9:00 AM EST Office Visit [facility] MEDICINE [address] [place] [phone] Svetlana Sloan ANP [address] [place] [address] documented as of this encounter Visit Diagnoses Not on filedocumented in this encounter Additional Health Concerns Assessment Noted Time PHQ-9 Depression Total Score: 0 09/13/19 25 10:06 AM EDT documented as of this encounter Care Teams Tool Tender Relationship Specialty Start Date End Date Svetlana Sloan ANP 230 [place] [address] PCP - General Family Medicine 11/22/20 documented as of this encounter
--- OUTSIDE RECORDS SUMMARY | 2025-02-12 14:08 | XMS_ITS | Encounter Summary ---
Author Organization [employer] [facility] Address [address] [facility] [address] 7t [place] [address] Care Team Providers Care Glue Sprayer Name Role Phone Luther Svetlana EASTON Primary Care Provider [phone] Reason for Visit * Reason Comments Med Refill Encounter Details Date Type Department Care Team (Late st Contact Info) Description 05/10/2023 Refill [facility] 230 [place] [address] Shona Yuosif FNP Social History Tobacco Use Types Packs/Day [...] Description 03/06/2025 1:30 PM EST Office Visit [address] [address] Rossy Blount MD [address] [place] [phone] 04/23/2025 9:00 AM EST Office Visit [address] [address] Svetlana Sloan ANP [address] [place] [address] documented as of this encounter Visit Diagnoses Not on filedocumented in this encounter Care Teams Glue Sprayer Relationship Specialty Start Date End Date Svetlana Sloan ANP [address] [place] [address] PCP - General Family Medicine 11/22/20 documented as of this encounter
--- OUTSIDE RECORDS SUMMARY | 2025-02-12 14:08 | XMS_ITS | Encounter Summary ---
Author Organization [employer] Address [address] [facility] [address] 7t [place] [address] Care Team Providers Care 4Th Grade Teacher Name Role Phone Svetlana Sloan Primary Care Provider [phone] Encounter Details Date Type Department Care Team (Late st Contact Info) Description 02/12/2025 Telephone [facility] MEDICINE 230 [place], [place] [phone] Svetlana Sloan ANP 230 [place] [address] Social History Tobacco Use Types Packs/Day Years [...] encounter Miscellaneous Notes * Telephone Encounter - Rosie Carlin MA - 02/12/2025 8:29 AM EST Patient schedule for 04/23/25 @ 9:00 am * Telephone Encounter - Rosie Carlin MA - 02/12/2025 8:29 AM EST ----- Message from Svetlana Sloan sent at 02/11/2025 5:17 PM EST ----- Hello! Please schedule pt for f/u w/ me for preDM in April. Thank you! documented in this encounter Plan of Treatment Upcoming Encounters Date Type Department Care Team (Late st Contact Info) Description 03/06/2025 1:30 PM EST Office Visit [facility] MEDICINE [address] [place] [phone] Rossy Blount MD 230 [place] [address] 04/23/2025 9:00 AM EST Office Visit [facility] MEDICINE [address] [place] [address] Svetlana Sloan ANP 230 [place] [address] documented as of this encounter Visit Diagnoses Not on filedocumented in this encounter Additional Health Concerns Assessment Noted Time PHQ-9 Depression Total Score: 0 09/13/19 25 10:06 AM EDT documented as of this encounter Care Teams 4Th Grade Teacher Relationship Specialty Start Date End Date Svetlana Sloan ANP 230 [place] [address] PCP - General Family Medicine 11/22/20 documented as of this encounter
--- OUTSIDE RECORDS SUMMARY | 2025-02-12 14:08 | XMS_ITS | Encounter Summary ---
Author Organization [facility] Address [address] [facility] [address] [address] 7t [place] [address] Care Team Providers Care Rim Technician Name Role Phone Svetlana Sloan Primary Care Provider [phone] Reason for Visit * Reason Onset Date Comments Pt-1 06/21/2023 Encounter Details Date Type Department Care Team ([facility] st Contact Info) Description 06/21/2023 Telephone [facility] MEDICINE 230 [place], [place] [phone] Svetlana Sloan ANP 230 [place] [address] Pt-1 Social History Tobacco Use Types Packs/Day [...] Y/N: Yes Provider name or facility name: [facility] Facility Address: [address] [place] [address] Escort needed: Y/N: Yes Do you have a wheelchair: Y/N: No If yes- Manual or electric: N/A Visits: twice a week documented in this encounter Plan of Treatment Upcoming Encounters Date Type Department Care Team (Late st Contact Info) Description 03/06/2025 1:30 PM EST Office Visit [facility] MEDICINE [address] [place] [address] Rossy Blount MD [address] [place] [address] 04/23/2025 9:00 AM EST Office Visit [facility] MEDICINE [address] [place] [address] Svetlana Sloan ANP [address] [place] [address] documented as of this encounter Visit Diagnoses Not on filedocumented in this encounter Care Teams Rim Technician Relationship Specialty Start Date End Date Svetlana Sloan ANP [address] [place] [address] PCP - General Family Medicine 11/22/20 documented as of this encounter
--- OUTSIDE RECORDS SUMMARY | 2025-02-12 14:08 | XMS_ITS | Encounter Summary ---
Author Organization [employer] [facility] Address [address] [facility] 7t [place] [address] Care Team Providers Care Senior Construction Estimator Name Role Phone Svetlana Sloan Primary Care Provider [phone] Encounter Details Date Type Department Care Team (Late st Contact Info) Description 03/16/2022 Orders Only [facility] [address] [place] [address] Svetlana Sloan ANP [address] [place] [address] Wheezing (Primary Dx) Social History Tobacco Use [...] Description 03/06/2025 1:30 PM EST Office Visit [address] [address] Rossy Blount MD [address] [place] [phone] 04/23/2025 9:00 AM EST Office Visit [address] [address] Svetlana Sloan ANP [address] [place] [address] documented as of this encounter Visit Diagnoses Diagnosis Wheezing- Primary documented in this encounter Care Teams Senior Construction Estimator Relationship Specialty Start Date End Date Svetlana Sloan ANP [address] [place] [address] PCP - General Family Medicine 11/22/20 documented as of this encounter
--- OUTSIDE RECORDS SUMMARY | 2025-02-12 14:08 | XMS_ITS | Encounter Summary ---
Author Organization [employer] [facility] Address [address] [place] [address] 7 [place] [address] Care Team Providers Care Ginner Name Role Phone Svetlana Sloan Primary Care Provider [phone] Encounter Details Date Type Department Care Team (Late st Contact Info) Description 06/05/2022 Orders Only [facility] MEDICINE [address] [place] [phone] Patricia Wagoner LPN Social History Tobacco Use [...] Description 03/06/2025 1:30 PM EST Office Visit [address] [address] Rossy Blount MD [address] [place] [address] 04/23/2025 9:00 AM EST Office Visit [facility] MEDICINE [address] [place] [address] Svetlana Sloan ANP [address] [place] [address] documented as of this encounter Visit Diagnoses Not on filedocumented in this encounter Care Teams Ginner Relationship Specialty Start Date End Date Svetlana Sloan ANP 230 [place] [address] PCP - General Family Medicine 11/22/20 documented as of this encounter
--- OUTSIDE RECORDS SUMMARY | 2025-02-12 14:08 | XMS_ITS | Encounter Summary ---
Author Organization [employer] [facility] Address [address] [address] 7t [place] [address] Care Team Providers Care Business Relationship Manager Name Role Phone Svetlana Sloan Primary Care Provider [phone] Reason for Visit * Reason Comments Med Refill Encounter Details Date Type Department Care Team ([facility] st Contact Info) Description 01/10/2024 Refill [facility] MEDICINE 230 [place], [place] [phone] Svetlana Sloan ANP 230 [place] [address] Rash Social History Tobacco Use Types Packs/Day [...] Description 03/06/2025 1:30 PM EST Office Visit [facility] MEDICINE [address] [place] [address] Rossy Blount MD [address] [place] [address] 04/23/2025 9:00 AM EST Office Visit [address] [address] Svetlana Sloan ANP [address] [place] [address] documented as of this encounter Visit Diagnoses Diagnosis Rash Rash and other nonspecific skin eruption documented in this encounter Additional Health Concerns Assessment Noted Time PHQ-9 Depression Total Score: 0 09/04/19 24 12:17 PM EDT documented as of this encounter Care Teams Business Relationship Manager Relationship Specialty Start Date End Date Svetlana Sloan ANP [address] [place] [address] PCP - General Family Medicine 11/22/20 documented as of this encounter
--- OUTSIDE RECORDS SUMMARY | 2025-02-12 14:08 | XMS_ITS | Clinical Summary ---
Author Organization [employer] Address [address] 7[address] [place] [address] Care Team Providers Care Origination Specialist Name Role Phone Svetlana Sloan JEMMA Primary Care Provider [phone] Allergies Active Allergy Reactions Criticality Noted Date [...] 60 tablet 11 5 Active nystatin (Mycostatin) 901113 UNIT/GM powderIndication s:Intertrigo Apply topically 2 times daily. As needed for rash 60 g 2 5 09/13/19 26 Active omeprazole (PriLOSEC) [address] capsuleIndicatio ns:Gastroesophag eal reflux disease, unspecified whether esophagitis present TAKE 1 CAPSULE BY MOUTH EVERY DAY BEFORE A MEAL 90 capsule 3 5 Active cetirizine (ZyrTEC) 10 MG tabletIndication [...] LA MANANA Y 1 EN LA NOCHE 5 Active meloxicam (Mobic) 7.5 MG tabletIndication s:Chronic low back pain, unspecified back pain laterality, unspecified whether sciatica present TAKE 1 TABLET BY MOUTH IN THE MORNING AND AT BEDTIME IF NEEDED FOR MODERATE PAIN 60 tablet Active Active Problems Problem Noted Date Diagnosed Date Dental abscess 08/13/2023 Severe dental caries 08/13/2023 Fatigue 06/05/2022 Chronic cough 07/30/2018 Posttraumatic stress disorder 07/30/2018 Large breasts 05/14/2018 Chronic low back pain 01/21/2018 Dyspnea on exertion 01/21/2018 Overview (02/11/2025): See PFTs in chart 12/05/24 Impression: No obstructive or restrictive ventilatory defects. Bronchodilator response is present in small to medium airways only. Decreased expiratory reserve volume suggests extrathoracic restriction likely secondary to abdominal obesity. Edema of lower extremity 12/07/2017 Migraine without aura, not refractory 12/07/2017 Wheezing 12/07/2017 Chronic urticaria 07/31/2017 Thyroglossal duct cyst 07/31/2017 Indigestion 03/07/2017 Allergic rhinitis 01/12/2017 Recurrent major depressive episodes, moderate (C MS/HCC) 12/21/2016 Prediabetes Encounters Date Type Department Care Team Description 02/12/2025 11:00 AM EST Procedure Visit [facility] MEDICINE [address] [place] [phone] Connie Hess CNM Cervical cancer screening (Primary Dx); Screening examination for venereal disease; Abnormal uterine bleeding 02/12/2025 Travel 02/12/2025 Telephone [facility] MEDICINE [address] [place] [phone] Svetlana Sloan ANP 02/11/2025 Telephone [facility] MEDICINE [address] [place] [phone] Svetlana Sloan ANP chart prep 02/05/2025 Travel 01/21/2025 Patient Outreach [facility] MED[facility]INE [address] [place] [address] [phone] Svetlana Sloan ANP Care Coordination (CHW outreach for SDOH PT-1 and food needs-referral completed /) 01/21/2025 Telephone [facility] MEDICINE [address] [place] [phone] Svetlana Sloan ANP pt1 12/31/2024 Refill [facility] [address] [place] [phone] Svetlana Sloan, JEMMA Chronic low back pain, unspecified back pain laterality, unspecified whether sciatica present from Last 3 Months Immunizations Immunization Administration Dates Next Due Tdap 09/21/2021,12/14/2020 Family History Medical History Relation Name Comments Asthma Maternal Grandmother Thyroid disease Maternal Grandmother Hypothyroidism Mother Alzheimer's disease Paternal Grandfather Breast cancer Neg Hx Colon cancer Neg Hx Ovarian cancer Neg Hx Relation Name Status Comments Maternal Grandmother Mother [...] (305 lb) 02/12/2025 10:53 AM EST Height 160 cm (5' 3 ) 09/12/2024 10:05 AM EDT Body Mass Index 54.03 09/12/2024 10:05 AM EDT Plan of Treatment Upcoming Encounters Date Type Department Care Team (Late st Contact Info) Description 03/06/2025 1:30 PM EST Office Visit [facility] MEDICINE [address] [place] [address] [phone] Rossy Blount MD [address] [place] [phone] 04/23/2025 9:00 AM EST Office Visit [facility] MEDICINE [address] [place] [phone] Svetlana Sloan ANP [address] [place] [address] Health Maintenance Due Date Last Done Comments HPV Vaccines (1 - 3-dose series) 2001 [...] 03/28/2023, 11/30/2021, Additional history exists Disability Screening 02/05/2026 02/05/2025 Family Planning (PISQ) 02/12/2026 02/12/2025 Tobacco Screening 02/12/2026 02/12/2025 Dental X-Ray: Full Mouth 08/13/2026 08/13/2023, 04/02 [...] Procedure Name Priority Date/Time Associated Diagnosis Comments CBC WITH AUTO DIFFERENTIAL Routine 02/12/2025 11:21 AM EST Leukocytosis, unspecified type HEMOGLOBIN A1C Routine 09/12/2024 11:19 AM EDT [...] Relevant to Health Maintenance Results * (ABNORMAL) CBC auto differential (02/12/2025 11:21 AM EST) White Blood Count 9.7 4.8 - 10.8 X10*3/uL [facility] Red Blood Count 5.29 4.20 - 5.50 X10*6/uL [facility] Hemoglobin 12.6 12.0 - 16.0 g/dl [facility] Hematocrit 39.5 37.0 - 47.0 % [facility] Mean Corpuscular Volume 74.7(L) 80.0 - 98.0 fL [facility] Mean Corpuscular Hemoglobin 23.8(L) 27.0 - 33.0 pg [facility] Mean Corpuscular HGB Conc 31.9 31.0 - 35.0 g/dl [facility] Red Cell Distribution Width 16.0 11.0 - 16.0 % [facility] Platelet Count 321 160 - 400 X10*3/uL [facility] Mean Platelet Volume 9.1(L) 9.4 - 12.3 fL [facility] Neutrophils Percent Auto 66.7 45 - 73 % [facility] Imm Gran Pct Auto 0.1 0.0 - 0.4 % [facility] Lymphocytes Percent Auto 24.9 20 - 40 % [facility] Monocytes Percent Auto 5.9 2 - 11 % [facility] Eosinophils Percent Auto 2.2 0 - 4 % [facility] Basophils Percent Auto 0.2 0 - 2 % [facility] NRBC Pct Auto 0.0 0.0 - 0.2 /100WBC [facility] Neutrophils Absolute Auto 6.4 2.0 - 8.3 x10*3/uL [facility] Imm Gran Abs Auto 0.01 0.00 - 0.03 X10*3/uL [facility] Lymphocytes Absolute Auto 2.4 1.2 - 4.9 X10*3/uL [facility] Monocytes Absolute Auto 0.6 0.1 - 1.2 X10*3/uL [facility] Eosinophils Absolute Auto 0.2 0.0 - 0.4 X10*3/uL [facility] Basophils Absolute Auto 0.0 0.0 - 0.2 X10*3/uL [facility] NRBC Abs Auto 0.000 0.0 - 0.012 X10*3/uL [facility] Blood Venous blood specimen / Unknown 02/12/2025 11:21 AM EST 02/12/2025 12:58 PM EST Svetlana Sloan [facility] LAB BLOOD ORDERABLES Final Resul t [facility] [address] [place] [address] [phone] * (ABNORMAL) Hemoglobin A1c (09/12/2024 11:19 AM EDT) Hemoglobin A1c 6.1(H) <6.0 % [facility] Comment:Hemoglobin A1C Refer ence Range Adults: 4.8 - 6.0 % Non diabetic: < 6.0 % Goal: < 7.0 %Additional Action Suggested: > 8.0 %Note: Hemoglobin A1c results are invalid for patients with abnormal amounts of HbF. Blood transfusions may impact the HbA1c concentration in the patient sample. Estimated Average Glucose 128 mg/dL [facility] Comment:eAG = Estimated ave rage glucose which is %A1C expressed asaverage glucose, using the formula of the R3Q-NunbrqkQskoasu Glucose study (ADAG), Diabetes Care, Vol.31,#8,Oct. 2007 Blood Venous blood specimen / Unknown 09/12/2024 11:19 AM EDT 09/12/2024 12:56 PM EDT [facility] LAB BLOOD ORDERABLES Final Resul t Performing Organization Address [facility]/State/ZIP Co de Phone Number [facility] [address] [place] [phone] * (ABNORMAL) Lipid Panel, Standard (09/12/2024 11:19 AM EDT) Triglycerides 112 <150 mg/dL [facility] Comment:Desirable Triglyceri de: less than 150 mg/dLBorderline High Triglyceride 150-199 mg/dLHigh Triglyceride: 200-499 mg/dLVery High Triglyceride: greater than or equal to 5OO mg/dL Cholesterol 133 <200 mg/dL [facility] Comment:Desirable Cholestero l: less than 200 mg/dLBorderline High Cholesterol: 200-239 mg/dLHigh Cholesterol: greater than 239 mg/dL LDL Cholesterol Calculated 76 <100 mg/dL [facility] Comment:Desirable LDL: less than 100 mg/dLNear Optimal/Above Optimal LDL: 110- 129 mg/dLBorderline High LDL: 130-159 mg/dLHigh LDL: 160-189 mg/dLVery High LDL: greater than or equal to 190 mg/dL HDL Cholesterol 35(L) >40 mg/dL [facility] Comment:Desirable HDL: great er than 40 mg/dL Note: This HDL assay may give artificially low results in patients with liver disease. Blood Venous blood specimen / Unknown 09/12/2024 11:19 AM EDT 09/12/2024 12:56 PM EDT Svetlana Sloan [facility] LAB BLOOD ORDERABLES Final Resul t [facility] [address] [place] [address] [phone] * HEPATITIS C AB W/REFL TO HCV RNA, QN, PCR (11/30/2021 11:35 AM EDT) HEPATITIS C ANTIBODY NON-REACT MALIA NON-REACT MALIA [facility] INDEX 0.19 <1.00 [facility] Comment: HCV antibody was non-reactive. There is no laboratory evidence of HCV infection. In most cases, no further action is required. However, if recent HCV exposure is suspected, a test for HCV RNA (test code 12290) is suggested. For additional information please refer to http://education.DEUS/faq/VZD33a0 (This link is being provided for informational/ educational purposes only.) 11/30/2021 11:3 5 AM EDT Reema Greer MD HISTORICAL/NON ORDERA BLE LABS Final Result [facility] [address] * HIV 1/2 ANTIGEN/ANTIBODY,FOURTH GENERATION W/RFL (11/30/2021 11:35 AM EDT) HIV-1/2 ANTIGEN AND ANTIBODIES, 4TH GENERATION W/ REFLEX NON-REACT MALIA NON-REACT MALIA [facility] Comment: HIV-1 antigen and HIV-1/HIV-2 [...] purpose. For additional information please refer to http://Metrilo.DEUS/faq/HLY161 (This link is being provided for informational/ educational purposes only.) The performance of this assay has not been clinically validated in patients less than 2 years old. HIV-1/2 ANTIGEN AND ANTIBODIES, 4TH GENERATION W/ REFLEX NON-REACT MALIA NON-REACT MALIA [facility] Comment: HIV-1 antigen and HIV-1/HIV-2 [...] purpose. For additional information please refer to http://Metrilo.DEUS/faq/PGR847 (This link is being provided for informational/ educational purposes only.) The performance of this assay has not been clinically validated in patients less than 2 years old. 11/30/2021 11:3 5 AM EDT Reema Greer MD LAB BLOOD ORDERABLES Final Result [facility] [address] * THINPREP TIS PAP (02/25/2020 12:00 AM EST) Clinical Information: None given [facility] COMMENT SEE COMMENT [facility] [...] has been evaluated with computer assisted technology. [facility] Chemist Water Purification : SEE COMMENT [facility] Comment: SL, CT(ASCP) CT screening location: [place] [address] Interpretation/R esult: Negative for intraepithelial lesion or malignancy. [facility] LMP: NONE [facility]IVEN [facility] Prev. BX: NONE [facility]IV[facility] Prev. PAP: NONE [facility]IVEN [facility] SOURCE: None given [facility] Statement Of Adequacy: SEE COMMENT [facility] Comment: Satisfactory for evaluation. Endocervical/transformation zone component present. Partially obscuring inflammation Age and/or menstrual status not provided Partially obscuring blood 02/25/2020 us Historical Provider MD LAB PATHOLOGY ORDERABLES Final Result [facility] [address] from Last 3 Months or Most Recently Relevant to Health Maintenance Insurance [facility] MEDICAID STAND ADULT Care Teams Origination Specialist Relationship Specialty Start Date End Date Svetlana Sloan ANP [address] [place] [phone] PCP - General Family Medicine 11/22/20
--- OUTSIDE RECORDS SUMMARY | 2025-02-12 14:08 | XMS_ITS | Encounter Summary ---
Author Organization [employer] [facility] Address [address] [place] [address] Care Team Providers Care Political Reporter Name Role Phone Svetlana Sloan Primary Care Provider [phone] Reason for Visit * Reason Onset Date Comments Nurse Triage 09/14/2023 Encounter Details Date Type Department Care Team ([facility] st Contact Info) Description 09/14/2023 Telephone [facility] MEDICINE [address] [place], [place] [phone] Svetlana Sloan ANP [address] [place] [address] Nurse Triage Social History Tobacco Use Types [...] EDT Triage call returned to patient with [facility] Parasitologist [id number]. Patient with rash described as below the knee n left leg from ankle to calf. No known exposure to irritants. Has been using alcohol todiminish itching. No fluid filled blisters just red bumps. No fever or spreading redness. Disposition reviewed and patient in agreement with plan. Unable to come to [facility] has appt today at [facility] and will seek evaluation there at [...] Override Notes: Patient unable to come to [facility] today. Video visit offer not recorded [...] become worse * Telephone Encounter - Naveen Tony - 09/14/2023 9:36 AM EDT Symptom: Rash or Redness on One Body Area Only Outcome: Talk to a nurse or provider within 15 minutes Reason: Dark blood red spots (not pink) [employer] Speaker (Accepted Veterinary Parasitologist) documented in this encounter Plan of Treatment Upcoming Encounters Date Type Department Care Team (Late st Contact Info) Description 03/06/2025 1:30 PM EST Office Visit [facility] MEDICINE [address] [place] [phone] Rossy Blount MD [address] [place] [address] 04/23/2025 9:00 AM EST Office Visit [address] [address] Svetlana Sloan ANP [address] [place] [address] documented as of this encounter Visit Diagnoses Not on filedocumented in this encounter Additional Health Concerns Assessment Noted Time PHQ-9 Depression Total Score: 0 09/04/19 24 12:17 PM EDT documented as of this encounter Care Teams Political Reporter Relationship Specialty Start Date End Date Svetlana Sloan ANP [address] [place] [phone] PCP - General Family Medicine 11/22/20 documented as of this encounter
[2025-02-13 03:46] LABS: Syphilis Screen Nonreactive (Nonreactive)
[2025-02-13 04:22] LABS: HBS Num1 5.30 mIU/mL (0-7.99); HBc Num1 0.08 S/CO (0.00-0.79); HBsAGNum1 0.39 S/CO (0.00-0.99); HIV Num 1 0.06 S/CO (0.00-0.99); Hepatitis B Surface Antigen Negative (Negative); ~HepC Num1 0.06 S/CO (0.00-0.79); ~Hepatitis B Surface Antibody NONREACTIVE (Nonreactive); ~Hepatitis C Antibody Nonreactive (Nonreactive)
[2025-02-14 19:09] LABS: C. trachomatis RNA TMA NOT DETECTED (NOT DETECTED); N. gonorrhoeae RNA TMA NOT DETECTED (NOT DETECTED)
[2025-02-25 11:39] LABS: Trichomonas (NAAT) NOT DETECTED
== END 2025-02-12 11:13 | disposition home or self-care (01) ==
LOC: HO.HHCL 11:12
PROVIDERS: PCP Nurse Practitioner Primary Care; Visit Provider Advanced Practice Midwife
DX: Z12.4 Encounter for screening for malignant neoplasm of cervix (principal); Z11.4 Encounter for screening for human immunodeficiency virus [HIV]; Z20.2 Contact with and (suspected) exposure to infections with a predominantly sexual mode of transmission; Z20.6 Contact with and (suspected) exposure to human immunodeficiency virus [HIV]; D72.829 Elevated white blood cell count, unspecified; Z11.59 Encounter for screening for other viral diseases
CPT/HCPCS: 36415; 85025; 86704; 86706; 86780; 86803; 87340; 87389; 87491; 87591; 87626; 87661; 88175

== ENCOUNTER 2025-02-25 09:40 | Outpatient (REF) | payer MEDICAID, SELFPAY ==
--- OUTSIDE RECORDS SUMMARY | 2025-02-25 11:00 | XMS_ITS | Encounter Summary ---
Author Organization [employer] [facility] Address [address] [place] [address] Care Team Providers Care Smoking Tobacco Packer Hand Name Role Phone Svetlana Sloan Primary Care Provider [phone] Reason for Visit * Reason Onset Date Comments Lab Orders 03/05/2023 Encounter Details Date Type Department Care Team ([facility] st Contact Info) Description 03/05/2023 Telephone [facility] MEDICINE [address] [place], [place] [phone] Svetlana Sloan ANP [address] [place], [place] [phone] Lab Orders Social History Tobacco Use Types [...] Description 03/06/2025 1:30 PM EST Office Visit [facility] MEDICINE [address] [place] [phone] Rossy Blount MD [address] [place] [address] 04/23/2025 9:00 AM EST Office Visit [facility] MEDICINE [address] [place] [phone] Svetlana Sloan ANP [address] [place] [address] documented as of this encounter Visit Diagnoses Not on filedocumented in this encounter Care Teams Smoking Tobacco Packer Hand Relationship Specialty Start Date End Date Svetlana Sloan ANP [address] [place] [address] PCP - General Family Medicine 11/22/20 documented as of this encounter
--- OUTSIDE RECORDS SUMMARY | 2025-02-25 11:00 | XMS_ITS | Encounter Summary ---
Author Organization [facility] Address [address] 7t [place] [address] Care Team Providers Care Industrial Psychology Professor Name Role Phone Svetlana Sloan Primary Care Provider [phone] Reason for Visit * Reason Onset Date Comments Results 11/27/2022 Encounter Details Date Type Department Care Team ([facility] st Contact Info) Description 11/27/2022 Telephone [facility] MEDICINE [address] [place], [place] [phone] Svetlana Sloan ANP [address] [place], [place] [phone] Results Social History Tobacco Use Types Packs/Day [...] does not use mychart and patient speaks citizen of [place]. * Telephone Encounter - Ana May - 01/26/2023 3:47 PM EDT Tc from pt calling in regards to message above. Please contact pt at [phone] (Malaysian) * Telephone Encounter - Ashley Vera - 01/02/2023 12:54 PM EDT Tc from patient re calling in regards to renal US results done in [facility] [place]. * Telephone Encounter - Holly Schilling - 12/28/2022 8:35 AM EDT Tc from patient re calling in regards to renal US results done in [facility] [place]. Patient doesn't recall on what date. Patient speaks citizen of [place]. * Telephone Encounter - Ana May - 11/27/2022 10:39 AM EDT Tc from pt requesting results for renal US. States she has not heard anything. Please contact pt at [phone] (Malaysian) documented in this encounter Plan of Treatment Upcoming Encounters Date Type Department Care Team (Late st Contact Info) Description 03/06/2025 1:30 PM EST Office Visit [facility] MEDICINE [address] [place] [address] Rossy Blount MD [address] [place] [address] 04/23/2025 9:00 AM EST Office Visit [facility] MEDICINE [address] [place], [place] [phone] Svetlana Sloan ANP [address] [place] [address] documented as of this encounter Visit Diagnoses Not on filedocumented in this encounter Care Teams Industrial Psychology Professor Relationship Specialty Start Date End Date Svetlana Sloan ANP [address] [place] [phone] PCP - General Family Medicine 11/22/20 documented as of this encounter
--- OUTSIDE RECORDS SUMMARY | 2025-02-25 11:01 | XMS_ITS | Encounter Summary ---
Author Organization [employer] [facility] Address [address] 7[address] [place] [address] Care Team Providers Care Business Process Analyst Name Role Phone Svetlana Sloan Primary Care Provider [phone] Reason for Visit * Reason Comments Med Refill Encounter Details Date Type Department Care Team ([facility] st Contact Info) Description 01/10/2024 Refill [facility] MEDICINE [address] [place], [place] [phone] Svetlana Sloan ANP [address] [place], [place] [phone] Rash Social History Tobacco Use Types Packs/Day [...] Description 03/06/2025 1:30 PM EST Office Visit [facility] MEDICINE [address] [place] [phone] Rossy Blount MD [address] [place] [phone] 04/23/2025 9:00 AM EST Office Visit [address] [phone] Svetlana Sloan ANP [address] [place] [phone] documented as of this encounter Visit Diagnoses Diagnosis Rash Rash and other nonspecific skin eruption documented in this encounter Additional Health Concerns Assessment Noted Time PHQ-9 Depression Total Score: 0 09/04/19 24 12:17 PM EDT documented as of this encounter Care Teams Business Process Analyst Relationship Specialty Start Date End Date Svetlana Sloan ANP [address] [place] [phone] PCP - General Family Medicine 11/22/20 documented as of this encounter
--- OUTSIDE RECORDS SUMMARY | 2025-02-25 11:01 | XMS_ITS | Encounter Summary ---
Author Organization [employer] Address [address] [place] [address] Care Team Providers Care Firearms Assembly Supervisor Name Role Phone Svetlana Sloan Primary Care Provider [phone] Reason for Visit * Reason Onset Date Comments pt1 01/21/2025 Encounter Details Date Type Department Care Team ([facility] st Contact Info) Description 01/21/2025 Telephone [facility] MEDICINE [address] [place], [place] [phone] Svetlana Sloan ANP [address] [place] [address] pt1 Social History Tobacco Use Types Packs/Day [...] encounter Miscellaneous Notes * Telephone Encounter - Baron Lama - 01/21/2025 2:46 PM EDT Patient calling requesting PT1 Home Address verified: Y/N: Yes Provider name or facility name: [address] [address] Escort needed: Y/N: Yes Do you have a wheelchair: Y/N: No If yes- Manual or electric: Visits: 2x a week for 12 months documented in this encounter Plan of Treatment Upcoming Encounters Date Type Department Care Team (Late st Contact Info) Description 03/06/2025 1:30 PM EST Office Visit [facility] MEDICINE [address] [place] [phone] Rossy Blount MD [address] [place] [phone] 04/23/2025 9:00 AM EST Office Visit [facility] MEDICINE [address] [place] [phone] Svetlana Sloan ANP [address] [place] [address] documented as of this encounter Visit Diagnoses Not on filedocumented in this encounter Additional Health Concerns Assessment Noted Time PHQ-9 Depression Total Score: 0 09/13/19 25 10:06 AM EDT documented as of this encounter Care Teams Firearms Assembly Supervisor Relationship Specialty Start Date End Date Svetlana Sloan ANP [address] [facility] [place] [address] PCP - General Family Medicine 11/22/20 documented as of this encounter
--- OUTSIDE RECORDS SUMMARY | 2025-02-25 11:01 | XMS_ITS | Encounter Summary ---
Author Organization [employer] [facility] Address [address] [place] [address] [address] [place] [address] Care Team Providers Care Suture Gauger Name Role Phone Svetlana Sloan Primary Care Provider [phone] Encounter Details Date Type Department Care Team (Late st Contact Info) Description 06/05/2022 Orders Only [facility] MEDICINE [address] [place] [phone] Patricia Wagoner LPN Social History Tobacco Use [...] Description 03/06/2025 1:30 PM EST Office Visit [address] [address] Rossy Blount MD [address] [place] [phone] 04/23/2025 9:00 AM EST Office Visit [facility] MEDICINE [address] [place] [phone] Svetlana Sloan ANP [address] [place] [phone] documented as of this encounter Visit Diagnoses Not on filedocumented in this encounter Care Teams Suture Gauger Relationship Specialty Start Date End Date Svetlana Sloan ANP [address] [place] [address] PCP - General Family Medicine 11/22/20 documented as of this encounter
--- OUTSIDE RECORDS SUMMARY | 2025-02-25 11:01 | XMS_ITS | Encounter Summary ---
Author Organization [employer] [facility] Address [address] [facility] [address] [facility] [address] [place] [address] Care Team Providers Care Trim Operator Name Role Phone Luther Svetlana EASTON Primary Care Provider [phone] Reason for Visit * Reason Comments Med Refill Encounter Details Date Type Department Care Team (Late st Contact Info) Description 05/10/2023 Refill [facility] [address] [place] [address] Shona Yousif FNP Social History Tobacco Use [...] Description 03/06/2025 1:30 PM EST Office Visit [address] [address] Rossy Blount MD [address] [place] [phone] 04/23/2025 9:00 AM EST Office Visit [address] [address] Svetlana Sloan ANP [address] [place] [address] documented as of this encounter Visit Diagnoses Not on filedocumented in this encounter Care Teams Trim Operator Relationship Specialty Start Date End Date Svetlana Sloan ANP [address] [place] [address] PCP - General Family Medicine 11/22/20 documented as of this encounter
--- OUTSIDE RECORDS SUMMARY | 2025-02-25 11:01 | XMS_ITS | Encounter Summary ---
Author Organization [employer] [facility] Address [address] [facility] 7t [place] [address] Care Team Providers Care Special Agent Secret Service Name Role Phone Svetlana Sloan Primary Care Provider [phone] Encounter Details Date Type Department Care Team (Late st Contact Info) Description 03/16/2022 Orders Only [facility] [address] [place] [address] Svetlana Sloan ANP [address] [place] [address] Wheezing (Primary Dx) Social History Tobacco Use [...] Description 03/06/2025 1:30 PM EST Office Visit [address] [address] Rossy Blount MD [address] [place] [phone] 04/23/2025 9:00 AM EST Office Visit [address] [address] Svetlana Sloan ANP [address] [place] [address] documented as of this encounter Visit Diagnoses Diagnosis Wheezing- Primary documented in this encounter Care Teams Special Agent Secret Service Relationship Specialty Start Date End Date Svetlana Sloan ANP [address] [place] [address] PCP - General Family Medicine 11/22/20 documented as of this encounter
--- OUTSIDE RECORDS SUMMARY | 2025-02-25 11:01 | XMS_ITS | Encounter Summary ---
Author Organization [employer] [facility] Address [address] [facility] [address] [place] [address] Care Team Providers Care Job Site Supervisor Name Role Phone Svetlana Sloan Primary Care Provider [phone] Reason for Visit * Reason Onset Date Comments Pt-1 06/21/2023 Encounter Details Date Type Department Care Team ([facility] st Contact Info) Description 06/21/2023 Telephone [facility] [address] [place], [place] [phone] Svetlana Sloan ANP [address] [place], [place] [phone] Pt-1 Social History Tobacco Use Types Packs/Day [...] Y/N: Yes Provider name or facility name: [facility] Facility Address: [address] [place] [address] Escort needed: Y/N: Yes Do you have a wheelchair: Y/N: No If yes- Manual or electric: N/A Visits: twice a week documented in this encounter Plan of Treatment Upcoming Encounters Date Type Department Care Team (Late st Contact Info) Description 03/06/2025 1:30 PM EST Office Visit [facility] [address] [place] [address] Rossy Blount MD [address] [place] [address] 04/23/2025 9:00 AM EST Office Visit [facility] [address] [place] [phone] Svetlana Sloan ANP [address] [place] [address] documented as of this encounter Visit Diagnoses Not on filedocumented in this encounter Care Teams Job Site Supervisor Relationship Specialty Start Date End Date Svetlana Sloan ANP [address] [place] [phone] PCP - General Family Medicine 11/22/20 documented as of this encounter
--- OUTSIDE RECORDS SUMMARY | 2025-02-25 11:01 | XMS_ITS | Encounter Summary ---
Author Organization [employer] [facility] Address [address] [facility] 7 [place] [address] Care Team Providers Care Monogram Operator Name Role Phone Svetlana Sloan Primary Care Provider Encounter Details Date Type Department Care Team (Latest Contact Info) Description 04/22/2021 Abstract [facility] CONVERSIONS Dental, Provider, DDS Social History Tobacco [...] 1:30 PM EST Office Visit [facility] [address] [place] [address] Rossy Blount MD [address] [place] [address] 04/23/2025 9:00 AM EST Office Visit [facility] [address] [place] [phone] Svetlana Sloan ANP [address] [place] [address] documented as of this encounter Visit Diagnoses Not on filedocumented in this encounter Care Teams Monogram Operator Relationship Specialty Start Date End Date Svetlana Sloan ANP [address] [place] [address] PCP - General Family Medicine 11/22/20 documented as of this encounter
--- OUTSIDE RECORDS SUMMARY | 2025-02-25 11:01 | XMS_ITS | Clinical Summary ---
Author Organization [employer] Address [address] [facility] 7[address] [place] [address] Care Team Providers Care Sourcing Assistant Name Role Phone Meenu Nieves JEMMA Primary Care Provider [phone] Allergies Active Allergy Reactions Criticality Noted Date [...] 60 tablet 11 5 Active nystatin (Mycostatin) 645675 UNIT/GM powderIndication s:Intertrigo Apply topically 2 times [...] Encounters Date Type Department Care Team Description 02/18/2025 Orders Only [address] [address] Karine Bermeo CNM Abnormal uterine bleeding (Primary Dx) 02/16/2025 Results Follow-Up [address] [address] Meenu Nieves ANP STI testing add on (NG, CT, Trich), Hepatitis B Surface Antibody, Qualitative, Hepatitis B surface antigen, EIA, Additional followed-up results: 5 02/12/2025 11:00 AM EST Procedure Visit [address] [address] Karine Bermeo CNM Cervical cancer screening (Primary Dx); Screening examination for venereal disease; Abnormal uterine bleeding 02/12/2025 Travel 02/12/[address] [address] Meenu Nieves ANP 02/11/[address] [address] Meenu Nieves ANP chart prep 02/05/2025 Travel 01/21/2025 Patient Outreach [facility] [address] [place] [address] Meenu Nieves ANP Care Coordination ([facility] outreach for SDOH PT-1 and food needs-referral completed /) 01/21/2025 Telephone [facility] [address] [place], [place] [phone] Meenu Nieves ANP pt1 12/31/2024 Refill [facility] [address] [place] [address] Meenu Nieves ANP Chronic low back pain, unspecified back pain [...] Description 03/06/2025 1:30 PM EST Office Visit [facility] [address] [place] [address] Rossy Blount MD [address] [place] [address] 04/23/2025 9:00 AM EST Office Visit [facility] [address] [place] [address] Meenu Nieves ANP [address] [place] [address] Health Maintenance Due Date Last Done Comments HPV Vaccines (1 - 3-dose series) 2001 Hepatitis A Vaccines (1 of 2 - Risk 2-dose series) 2005 Hepatitis B Vaccines (1 of 3 - 19+ 3-dose series) 2005 Dental Oral Exam 10/11/2021 04/12/2021, 03/2018, 04/11/2017 Dental Prophylaxis 10/21/2021 04/22/2021 Dental X-Ray: Bitewings 04/13/2022 04/12/2021, 04/11 COVID-19 Vaccine ( season) 2024 06/16/2021, 01/14/2021, [...] 09/12/2029 09/12/2024, 03/03, 11/30/2021, Additional history exists Cervical Cancer Screening 02/12/2030 HPV/Cotest 02/12/2030 02/12/2025 Pap Smear 02/12/2030 02/12/2025, 02/25/2020 DTaP/Tdap/Td Vaccines (3 - Td or Tdap) 09/22/2031 09/21/2021, 12/14/2020 Zoster Vaccines (1 of 2) 01/16/2036 RSV Patients and Patients Aged 60 years or older (1 - 1-dose 75+ series) 2061 HIV Screening Completed 02/12/2025, 11/30/2021 Hepatitis C Screening Completed 02/12/2025 , 11/30/2021, 02/25/2020 HIB Vaccines Aged Out No longer eligi [...] Procedure Name Priority Date/Time Associated Diagnosis Comments HEPATITIS C AB W/REFL TO HCV RNA, QN, PCR Routine 02/12/2025 11:21 AM EST Screening examination for venereal disease HIV 1/2 ANTIGEN/ANTIBODY, FOURTH GENERATION W/RFL Routine 02/12/2025 11:21 AM EST Screening examination for venereal disease SYPHILIS SCREEN Routine 02/12/2025 11:21 AM EST Screening examination for venereal disease HEPATITIS B CORE AB TOTAL Routine 02/12/2025 11:21 AM EST Screening examination for venereal disease HEPATITIS B SURFACE ANTIGEN, EIA Routine 02/12/2025 11:21 AM EST Screening examination for venereal disease HEPATITIS B SURFACE ANTIBODY, QUALITATIVE Routine 02/12/2025 11:21 AM EST Screening examination for venereal disease CBC WITH AUTO DIFFERENTIAL Routine 02/12/2025 11:21 AM EST Leukocytosis, unspecified type CHLAMYDIA/N. GONORRHOEAE AND T. VAGINALIS RNA, QUAL,TMA Routine 02/12/2025 11:11 AM EST Screening examination for venereal disease PAP SMEAR Routine 02/12/2025 11:11 AM EST Cervical cancer screening OTHER REF TEST - MISC Routine 02/12/2025 11:11 AM EST HPV DNA, LOW/HIGH RISK Routine 02/12/2025 11:11 AM EST HEMOGLOBIN A1C Routine 09/12/2024 11:19 AM EDT Prediabetes LIPID PANEL, STANDARD Routine 09/12/2024 11:19 AM EDT High triglycerides PANORAMIC RADIOGRAPHIC IMAGE Routine 08/13/2023 8:00 AM EDT PROPHYLAXIS - ADULT Routine 04/22/2021 1 2:00 AM EST BITEWINGS - 4 RADIOGRAPHIC IMAGES Routine 04/12/2021 12:00 AM EST PERIODIC ORAL EVALUATION - ESTABLISHED PATIENT Routine 04/12/2021 12:00 AM EST from Last 3 Months or Most Recently Relevant to Health Maintenance Results * Syphilis Screen (02/12/2025 11:21 AM EST) Pathologist [facility] Syphilis Screen Nonreactive Nonreactive [facility] Blood Venous blood specimen / Unknown 02/12/2025 11:21 AM EST 02/12/2025 12:58 PM EST us Karine PENA LAB BLOOD ORDERABLES Deyanira l Result [facility] [address] [place] [address] [phone] * (ABNORMAL) CBC auto differential (02/12/2025 11:21 AM EST) White Blood Count 9.7 4.8 - 10.8 X10*3/uL [facility] Red Blood Count 5.29 4.20 - 5.50 X10*6/uL [facility] Hemoglobin 12.6 12.0 - 16.0 g/dl [facility] Hematocrit 39.5 37.0 - 47.0 % [facility] Mean Corpuscular Volume 74.7(L) 80.0 - 98.0 fL [facility] Mean Corpuscular Hemoglobin 23.8(L) 27.0 - 33.0 pg [facility] Mean Corpuscular HGB Conc 31.9 31.0 - 35.0 g/dl [facility] Red Cell Distribution Width 16.0 11.0 - 16.0 % [facility] Platelet Count 321 160 - 400 X10*3/uL [facility] Mean Platelet Volume 9.1(L) 9.4 - 12.3 fL [facility] Neutrophils Percent Auto 66.7 45 - 73 % [facility] Imm Gran Pct Auto 0.1 0.0 - 0.4 % [facility] Lymphocytes Percent Auto 24.9 20 - 40 % [facility] Monocytes Percent Auto 5.9 2 - 11 % [facility] Eosinophils Percent Auto 2.2 0 - 4 % [facility] Basophils Percent Auto 0.2 0 - 2 % [facility] NRBC Pct Auto 0.0 0.0 - 0.2 /100WBC [facility] Neutrophils Absolute Auto 6.4 2.0 - 8.3 x10*3/uL [facility] Imm Gran Abs Auto 0.01 0.00 - 0.03 X10*3/uL [facility] Lymphocytes Absolute Auto 2.4 1.2 - 4.9 X10*3/uL [facility] Monocytes Absolute Auto 0.6 0.1 - 1.2 X10*3/uL [facility] Eosinophils Absolute Auto 0.2 0.0 - 0.4 X10*3/uL [facility] Basophils Absolute Auto 0.0 0.0 - 0.2 X10*3/uL [facility] NRBC Abs Auto 0.000 0.0 - 0.012 X10*3/uL [facility] Blood Venous blood specimen / Unknown 02/12/2025 11:21 AM EST 02/12/2025 12:58 PM EST Meenu EASTON LAB BLOOD ORDERABLES Final Resul t Performing Organization Address [facility] Co de Phone Number [facility] [address] [place] [phone] * Hepatitis C Antibody with Reflex to HCV, RNA, Quantitative, Real-Time PCR (02/12/2025 11:21 AM EST) Hepatitis C Antibody Nonreactive Nonreactive [facility] Comment:Antibodies to HCV no t detected; does not exclude early acuteHCV infection. Blood Venous blood specimen / Unknown 02/12/2025 11:21 AM EST 02/12/2025 12:58 PM EST Karine Bermeo [facility] LAB BLOOD ORDERABLES Deyanira l Result Performing Organization Address [facility] Co de Phone Number [facility] [address] [place] [phone] * Hepatitis B surface antigen, EIA (02/12/2025 11:21 AM EST) Pathologist [facility] Hepatitis B Surface Ag Negative Negative [facility] Blood Venous blood specimen / Unknown 02/12/2025 11:21 AM EST 02/12/2025 12:58 PM EST Karine Bermeo [facility] LAB BLOOD ORDERABLES Deyanira l Result Performing Organization Address City/[facility] Co de Phone Number [facility] [address] [place] [phone] * Hepatitis B Core Antibody, Total (02/12/2025 11:21 AM EST) Pathologist [facility] Hepatitis B Core Antibody Nonreactive Nonreactive [facility] Blood Venous blood specimen / Unknown 02/12/2025 11:21 AM EST 02/12/2025 12:58 PM EST [facility] LAB BLOOD ORDERABLES Deyanira l Result Performing Organization Address City/[facility]/ZIP Co de Phone Number [facility] [address] [place] [phone] * HIV-1/2 Antigen and Antibodies, Fourth Generation, with Reflexes (02/12/2025 11:21 AM EST) HIV AB/AG Nonreactive Nonreactive [facility] Comment:HIV-1 p24 Ag and/or HIV-1/HIV-2 Ab not detected.A test result that is nonreactive does not exclude thepossibility of exposure to or infection with HIV-1 and/orHIV-2. Nonreactive results in this assay for individualswith prior exposure to HIV-1 and/or HIV-2 may be due toantigen and antibody levels that are below the limit ofdetection of this assay.The [employer] HIV Ag/Ab Combo assay result andsupplemental assay results should be interpreted inconjunction with the patient's clinical presentation,history and other laboratory results. If the results areinconsistent with clinical evidence, additional testing issuggested to confirm the result. Blood Venous blood specimen / Unknown 02/12/2025 11:21 AM EST 02/12/2025 12:[address] [facility] LAB BLOOD ORDERABLES Deyanira l Result Performing Organization Address City/[facility]/ZIP Co de Phone Number [facility] [address] [place] [phone] * Hepatitis B Surface Antibody, Qualitative (02/12/2025 11:21 AM EST) ~Hepatitis B Surface Antibody NONREACTIVE Nonreactive [facility] Comment:Nonreactive: < 8.00 mIU/mL Blood Venous blood specimen / Unknown 02/12/2025 11:21 AM EST 02/12/2025 12:[address] [facility] D[facility]yLife[facility] LAB BLOOD ORDERABLES Deyanira l Result Performing Organization Address [facility] Co de Phone Number [facility] [address] [place] [address] [phone] * STI testing add on (NG, CT, Trich) (02/12/2025 11:11 AM EST) Trichomonas (NAAT) TNP [facility] CTNG Ref Lab NOT DETECTED NOT DETECTED [facility] NG Ref Lab NOT DETECTED NOT DETECTED [facility] ThinPrep vial Cervix uteri structure / Unknown 02/12/2025 11:11 AM EST 02/13/2025 7:54 AM EST [facility] - 02/24/2025 7:55 AM EST Collection Date: [id number] by: HANNAH [place]: Cervix [facility] LAB CYTOLOGY ORDERABLES F inal Result Performing Organization Address [facility] Co de Phone Number [facility] [address] [place] [address] [phone] * Other Reference Test - Misc (02/12/2025 11:11 AM EST) Other Ref Test Misc See Note [facility] Comment:See scanned report i n EMR 02/12/2025 11:1 1 AM EST 02/13/2025 7:54 AM EST [facility] - 02/24/2025 7:55 AM EST Chlamydia/N. gonorrhoeae and T. vaginalis RNA, Qualitative, TMA REF [id number] [facility]Life[facility] LAB BLOOD ORDERABLES Deyanira l Result Performing Organization Address [facility] Co de Phone Number [facility] [address] [place] [phone] * HPV DNA, Low/High Risk (02/12/2025 11:11 AM EST) HPV High Risk Negative Negative [facility] HPV Genotype 16 Negative Negative [facility] HPV Genotype 18 Negative Negative [facility] Comment:HPV testing performe d at [facility] (CLIA#[id number]), [address] [place] [address].Testing for HPV was performed using the [employer]JA 6800system. The presence of HPV in the female genital tract isassociated with a number of diseases, including cervicalcarcinoma. The HPV DNA high risk pool tests for HPV 31, 33,35, 39, 45, 51, 52, 56, 58, 59, 66 and 68. The testing forHPV 16 and 18 genotypes has also been performed. A positiveresult indicates detection of nucleic acid sequences fromone or more subtypes, whereas a negative result indicatessuch sequences were not detected. 02/12/2025 11:1 1 AM EST 02/13/2025 7:54 AM EST us Karine Bermeo [facility] LAB BLOOD ORDERABLES Deyanira l Result [facility] [address] [place] [phone] * Pap Smear (02/12/2025 11:11 AM EST) Swab Cervix uteri structure / Unknown 02/12/2025 11:11 AM EST 02/13/2025 7:54 AM EST Narrative [facility] - 02/18/2025 10:59 AM EST ----- ------- Name: Reema Navarro Age/Sex: 40/F : 1985 Unit#: [id number] Attend Dr: KARINE BERMEO Shyam Re02/12/25 Status: [facility] Disch: ----- ------- SPEC : [id number] RECD: 02/13/25 STATUS: CARO DOMINGUEZ NUM: [id number] TANJA: 02/12/25-[address] [facility] [address]: KARINE BERMEO [facility] ENTERED: 02/13/25 SP TYPE: Pap Smr OTHR DR: MEENU NIEVES FORECAST ANALYST ORDERED: Pap Smear Interpretation Satisfactory for evaluation. Negative for intraepithelial lesion or malignancy. Scant cellularity. HPV High Risk: Negative HPV Genotyping 16: Negative HPV Genotyping 18: Negative Clinical Information LMP: Unknown date Previous PAP test: 2019, NIL Other history: Cervical cancer screening Material Received ThinPrep-Cervical PAP Disclaimer As of January 23, 2024, the technical services to include automated prescreening performed by the ThinPrep Imaging System, PAP screening and HPV testing will be performed at [facility] (CLIA #[id number]), [address] [place] [address]. Testing for HPV was performed using the [employer] BENJA 6800 system. The presence of HPV in the female genital tract is associated with a number of diseases, including cervical carcinoma. The HPV DNA high risk pool tests for HPV 31, 33, 35, 39, 45, 51, 52, 56, 58, 59, 66 and 68. The testing for HPV 16 and 18 genotypes has also been performed. A positive result indicates detection of nucleic acid sequences from one or more subtypes, whereas a negative result indicates such sequences were not detected. All professional services are performed by [facility] ([address] [place] [address], [place] [id number]; ; CLIA #[id number]). The PAP Test is a screening procedure with the inherent possibility of both false negative and false positive results. Results should be interpreted in the context of historic and current clinical findings. Reliability of the PAP Test is enhanced by performing the test on a regular repetitive basis. CONTINUED ON NEXT PAGE ----- ------- Name: Reema Navarro Age/Sex: 40/F : 1985 Unit#: [id number] Attend Dr: KARINE BERMEO CNM Re02/12/25 Status: [facility] REF Location: [facility] Disch: ----- ------- SPEC : [id number] RECD: 02/13/25 STATUS: CARO WIGGINSSerge NUM: [id number] TANJA: 02/12/25-[address]: KARINE BERMEO CNM ENTERED: 02/13/2533 SP TYPE: Pap Smr ROSA DR: MEENU NIEVES NP ORDERED: Pap Smear Copies To: KARINE BERMEO CNM [address] [address] MEENU NIEVES NP [address] [phone] ----- ------- Signed (signature on file) Garfield SanchezDELIA ([facility]) 02/18/25 1059 ----- ------- END OF REPORT Karine PENA LAB CYTOLOGY ORDERABLES F inal Result Performing Organization Address City/[facility]/ZIP Co de Phone Number [facility] [address] [place] [phone] * (ABNORMAL) Hemoglobin A1c (09/12/2024 11:19 AM EDT) Hemoglobin A1c 6.1(H) <6.0 % [facility] Comment:Hemoglobin A1C Refer ence Range Adults: 4.8 - 6.0 % Non diabetic: < 6.0 % Goal: < 7.0 %Additional Action Suggested: > 8.0 %Note: Hemoglobin A1c results are invalid for patients with abnormal amounts of HbF. Blood transfusions may impact the HbA1c concentration in the patient sample. Estimated Average Glucose 128 mg/dL [facility] Comment:eAG = Estimated ave rage glucose which is %A1C expressed asaverage glucose, using the formula of the Z9V-FfkertxQvragxy Glucose study (ADAG), Diabetes Care, Vol.31,#8,Oct. 2007 Blood Venous blood specimen / Unknown 09/12/2024 11:19 AM EDT 09/12/2024 12:56 PM EDT Meenu EASTON LAB BLOOD ORDERABLES Final Resul t Performing Organization Address City/[facility]/ZIP Co de Phone Number [facility] [address] [place] [address] [phone] * (ABNORMAL) Lipid Panel, Standard (09/12/2024 11:19 AM EDT) Triglycerides 112 <150 mg/dL [facility] Comment:Desirable Triglyceri de: less than 150 mg/dLBorderline High Triglyceride 150-199 mg/dLHigh Triglyceride: 200-499 mg/dLVery High Triglyceride: greater than or equal to 5OO mg/dL Cholesterol 133 <200 mg/dL [facility] Comment:Desirable Cholestero l: less than 200 mg/dLBorderline High Cholesterol: 200-239 mg/dLHigh Cholesterol: greater than 239 mg/dL LDL Cholesterol Calculated 76 <100 mg/dL [facility] Comment:Desirable LDL: less than 100 mg/dLNear Optimal/Above Optimal LDL: 110- 129 mg/dLBorderline High LDL: 130-159 mg/dLHigh LDL: 160-189 mg/dLVery High LDL: greater than or equal to 190 mg/dL HDL Cholesterol 35(L) >40 mg/dL [facility] Comment:Desirable HDL: great er than 40 mg/dL Note: This HDL assay may give artificially low results in patients with liver disease. Blood Venous blood specimen / Unknown 09/12/2024 11:19 AM EDT 09/12/2024 12:56 PM EDT [facility] LAB BLOOD ORDERABLES Final Resul t [facility] [address] [place] [address] [phone] from Last 3 Months or Most Recently Relevant to Health Maintenance Insurance [facility] ST[facility] AD[facility] Care Teams Sourcing Assistant Relationship Specialty Start Date End Date Meenu Nieves ANP [address] [place] [phone] PCP - General Family Medicine 11/22/20
--- OUTSIDE RECORDS SUMMARY | 2025-02-25 11:01 | XMS_ITS | Encounter Summary ---
Author Organization [employer] [facility] Address [address] [place] [address] Care Team Providers Care Card Player Name Role Phone Svetlana Sloan Primary Care Provider [phone] Reason for Visit * Reason Onset Date Comments Nurse Triage 09/14/2023 Encounter Details Date Type Department Care Team ([facility] st Contact Info) Description 09/14/2023 Telephone [facility] [address] [place], [place] [phone] Svetlana Sloan ANP [address] [place] [address] Nurse Triage Social History Tobacco Use Types [...] EDT Triage call returned to patient with [place] [employer]er [id number]. Patient with rash described as below the knee n left leg from ankle to calf. No known exposure to irritants. Has been using alcohol todiminish itching. No fluid filled blisters just red bumps. No fever or spreading redness. Disposition reviewed and patient in agreement with plan. Unable to come to [facility] has appt today at [facility] and will seek evaluation there at [...] Override Notes: Patient unable to come to [facility] today. Video visit offer not recorded [...] Reason: Dark blood red spots (not pink) English Speaker (Accepted Doughnut Fryer) documented in this encounter Plan of Treatment Upcoming Encounters Date Type Department Care Team (Late st Contact Info) Description 03/06/2025 1:30 PM EST Office Visit [facility] [address] [place] [id number] Rossy Blount MD [address] [place] [address] 04/23/2025 9:00 AM EST Office Visit [address] [id number] Svetlana Sloan ANP [address] [place] [address] documented as of this encounter Visit Diagnoses Not on filedocumented in this encounter Additional Health Concerns Assessment Noted Time PHQ-9 Depression Total Score: 0 09/04/19 24 12:17 PM EDT documented as of this encounter Care Teams Card Player Relationship Specialty Start Date End Date Svetlana Sloan ANP [address] [place] [id number] PCP - General Family Medicine 11/22/20 documented as of this encounter
[2025-02-25 13:56] LABS: Free T4 (Free Thyroxine) 0.99 ng/dL (0.71-1.85)
== END 2025-02-25 09:41 | disposition home or self-care (01) ==
LOC: HO.HHCL 09:40
PROVIDERS: PCP Nurse Practitioner Primary Care; Visit Provider Advanced Practice Midwife
DX: N93.9 Abnormal uterine and vaginal bleeding, unspecified (principal)
CPT/HCPCS: 36415; 84439; 84443; 84702